=== PATIENT | male | born 1975 | race Caucasian/White ===

== ENCOUNTER 2016-05-01 10:56 | Emergency (ER) | payer MEDICAID ==
[~2016-05-01] VITALS: Ht 188 cm; Wt 103.5 kg
[~2016-05-01 10:56] MED LIST: BACL10TA PO; CIPR500T78 PO; CLOT15CR4 TP; CYCL10TA9 PO; GABA300C PO; GABA300T PO; HYDR-1231 PO; HYDR-3812 PO; HYDR-757 PO; HYDR1TAB PO; IBUP800T26 PO; ONDA8TAB13 PO; OXYC-12 PO; OXYC1TAB25 PO; PHEN100T26 PO; PHEN200T27 PO; PRD20T PO; PRM25T PO; TMSL.4C PO
--- NOTE | 2016-05-01 12:11 | ED EENT ---
History of Present Illness General Chief Complaint: Head/Cervical Problems Stated Complaint: HEADACHE/SORE THROAT Nursing Triage Note: To ER with complaints of headache, ear ache, sore throat and generalized malaise since last night. Source: patient Exam Limitations: no limitations History of Present Illness Time seen by provider: 12:09 Initial Comments To ER with headache, right earache, sore throat, general malaise since last night. He and his report that there has been strep/upper respiratory infection going around the house affecting her children. No fevers. Timing/Duration: abrupt Severity: moderate Location: throat Prearrival Treatment: no prearrival treatment Associated Symptoms: denies symptoms Allergies and Home Medications Allergies Coded Allergies: No Known Drug Allergies (Verified , 07/23/08) Home Medications No Active Prescriptions or Reported Meds Review of Systems Constitutional: see HPINo chills, No fever, malaise weakness Eyes: No Symptoms Reported Ears: No Symptoms Reported Nose: no symptoms reported Mouth: no symptoms reported Throat: see HPI paindenies neck stiffness Respiratory: no symptoms reported Cardiovascular: no symptoms reported Musculoskeletal: no symptoms reported Skin: no symptoms reported Neurological: No Symptoms Reported Past Fkmvkef-Ctulws-Lmftmw Hx Patient Social History Alcohol Use: Denies Use Recreational Drug Use: No (6YEARS AGO METH) Drug of Choice: MARIJUANA Smoking Status: Never a Smoker Recent Foreign Travel: No Contact w/Someone Who Travel: No Recent Infectious Disease Expo: No Recent Hopitalizations: No Physical Abuse Screen: No Sexual Abuse: No Immunizations Up To Date Tetanus Booster (TDap): More than 5yrs Surgeries HX Surgeries: Yes (KIDNEY) Surgeries: Appendectomy, Gallbladder, Orthopedic Respiratory Hx Respiratory Disorders: No Cardiovascular Hx Cardiac Disorders: No Neurological Hx Neurological Disorders: No Reproductive System Hx Reproductive Disorders: No Sexually Transmitted Disease: No HIV/AIDS: No Genitourinary Hx Genitourinary Disorders: Yes Genitourinary Disorders: Kidney Stones Gastrointestinal Hx Gastrointestinal Disorders: Yes Gastrointestinal Disorders: Gastroesophageal Reflux, Ulcer Musculoskeletal Hx Musculoskeletal Disorders: Yes (TORN MENISCUS) Musculoskeletal Disorders: Back Injury Endocrine Hx Endocrine Disorders: No HEENT HX ENT Disorders: No Cancer Hx Cancer: No Psychosocial Hx Psychiatric Problems: No Integumentary HX Skin/Integumentary Disorder: No Blood Transfusions Hx Blood Disorders: No Family Medical History Significant Family History: Heart Disease, Diabetes Family Medial History: Family history: Arthritis G8 SISTER (SEVERE BACK PAIN) Family history: Cardiovascular disease 19 FATHER (PACEMAKER; FROM CARDIAC ISSUES) Family history: Diabetes mellitus 19 FATHER 19 MOTHER G8 BROTHER G8 SISTER Physical Exam Vital Signs Vital Sign - Last 12Hours 05/01/16 12:03 Temp 98.5 Pulse 81 Resp 18 B/P 126/87 Pulse Ox 96 O2 Delivery Room Air General Appearance: WD/WN no apparent distress Eyes: bilateral eye EOMI, bilateral eye PERRL, bilateral eye normal inspection Ears: right ear TM red, left ear TM normal, bilateral ear auricle normal, bilateral ear canal normal Mouth/Throat: other (pharyngeal erythema without hot potato voice or peritonsillar swelling or uvular deviation) Neck: non-tender full range of motion Respiratory: normal breath sounds no respiratory distress no accessory muscle use Neurologic/Psychiatric: alert normal mood/affect oriented x 3 Skin: normal color warm/dry Progress/Results/Core Measures Results/Orders My Orders Orders-ARTHUR HILL APRN Ketorolac Injection (Toradol Injection) (05/01/16 12:15) Orphenadrine Injection (Norflex Injectio (05/01/16 12:15) Vital Signs/I&O Vital Sign - Last 12Hours 05/01/16 12:03 Temp 98.5 Pulse 81 Resp 18 B/P 126/87 Pulse Ox 96 O2 Delivery Room Air Blood Pressure Mean: 100 Departure Impression Impression: Primary Impression: Pharyngitis Qualified Code: J02.9 - Acute pharyngitis, unspecified Disposition: 01 HOME, SELF-CARE Condition: Stable Departure-Patient Inst. Decision time for Depature: 12:10 Referrals: CHRIS ORELLANA MD (PCP/Family) Primary Care Physician Patient Instructions: Sore Throat in Adults Add. Discharge Instructions: 1. antibiotics as directed 2. Follow-up with your doctor next week 3. Use zqyi-uwq-sruvvoe Robitussin or DayQuil/NyQuil for cough congestion All discharge instructions reviewed with patient and/or family. Voiced understanding. Scripts Amoxicillin 500 Mg [id number] Mg PO TID #21 CAP Prov:ARTHUR HILL APRN 05/01/16 ARTHUR HILL APRN May 01, 2016 12:10
[2016-05-01] MEDS ORDERED: AMOX500C2 PO (12:12)
[2016-05-01] MEDS ORDERED: KETOROLAC 60 MG/2 ML VIAL IM ONE (12:15)
[2016-05-01] MEDS ORDERED: ORPHENADRINE 60 MG/2 ML (NORFLEX) AMP IM ONE (12:15)
[2016-05-01 12:25] VITALS: BP 126/87
== END 2016-05-01 12:25 | disposition home or self-care (01) ==
LOC: EDUNIT# 10:56 → ER 10:57
DX: J02.9 Acute pharyngitis, unspecified (principal); R51 Headache
CPT/HCPCS: 96372; 99282

== ENCOUNTER 2016-06-03 06:42 | Outpatient (CLI) | payer MEDICAID ==
[~2016-06-03] VITALS: Ht 188 cm; Wt 103.5 kg
[~2016-06-03 06:42] MED LIST changes: +AMOX500C2 PO
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
[2016-06-03] MEDS ORDERED: BUPIVACAINE 0.25% 30 ML (SENSORCAINE) VIAL ONE (06:55)
[2016-06-03] MEDS ORDERED: TRIAMCINOLONE ACET (KENALOG-40) 40 MG/ML 1 ML VIAL ONE (06:55)
[2016-06-03] MEDS ORDERED: LIDOCAINE 1% INJ 20 ML (XYLOCAINE) VIAL ONE (06:56)
[2016-06-03 06:59] VITALS: BP 114/88
[2016-06-03] MEDS ORDERED: DEXAMETHASONE PF 10 MG/ML (DECADRON) VIAL ONE (07:27)
[2016-06-03 07:39] VITALS: BP 101/86
--- NOTE | 2016-06-03 09:20 | Pain Medicine-Procedure ---
Procedure Pre-Op/Post-Op Diagnosis Diagnosis: Disc disorder with radiculopathy, lumbar Indications for Operation Low back pain Attending Surgeon Alina Procedure Date of Service: Jun 03, 2016 PROCEDURE: Transforaminal epidural Left L4 and L5 level Under fluoroscopic guidance DETAILS OF PROCEDURE: After obtaining informed consent from the patient, the patient's chart was reviewed. The patient was brought to the procedure room and was placed in a prone position. A time out was performed. The back was prepped with antiseptic solution. Under fluoroscopic guidance, the left L4 and L5 neural foramen was identified in the oblique view. 2 mL of 1% Lidocaine was used to anesthetize the skin over each site. Next, a 22-gauge 5-inch spinal needle was inserted through the skin under fluoroscopic guidance until it got to the left L4 and L5 neural foramina and position was confirmed in the oblique, AP and lateral view. After negative aspiration, 1 Rosas contrast dye was injected at each site which showed contrast spreading into the nerve root and the epidural space in both the lateral and AP view at both L4 and L5 on the left side. Again after negative aspiration, 5 mg of dexamethasone was injected followed by 0.5 mLs of 0.25% Marcaine at each site. The washout of the medication was confirmed with good spread of the medication into the epidural space at the appropriate level and into the nerve root. The needle was flushed with 1% lidocaine and removed. The patient tolerated the procedure well and was taken to the recovery area after applying a bandaid to the site. Patient was discharged to home in stable condition with no new neurologic deficits. Complications None CUONG FROST MD Jun 03, 2016 9:20 am
== END 2016-06-03 07:40 | disposition home or self-care (01) ==
LOC: CARD 06:42
PROVIDERS: ATTEND Pain Medicine Pain Medicine
DX: M51.16 Intervertebral disc disorders with radiculopathy, lumbar region (principal); M51.36 Other intervertebral disc degeneration, lumbar region
CPT/HCPCS: 64483; 64484

== ENCOUNTER 2016-07-19 12:36 | Emergency (ER) | payer MEDICAID ==
[~2016-07-19] VITALS: Ht 188 cm; Wt 103.5 kg
[2016-07-19] MEDS ORDERED: fentaNYL INJECTION 100 MCG/2 ML AMP IVP STA (13:05)
[2016-07-19] MEDS ORDERED: KETOROLAC 30 MG/ML VIAL IVP STA (13:05)
[2016-07-19] MEDS ORDERED: NS IV 1000 ML 1,000 ML IV ONE (13:05)
--- NOTE | 2016-07-19 13:14 | ED GU-Male ---
General Chief Complaint: Abdominal/GI Problems Stated Complaint: LEFT FLANK PAIN Source: patient Exam Limitations: no limitations History of Present Illness Time seen by provider: 13:02 Initial Comments Here with report of left flank pain that has moved down to the left lower quadrant. States that it feels like kidney stone. Denies fever or chills. Pain is unrelenting. Started yesterday and worse today. Timing/Duration: yesterday, getting worse Severity/Quality: moderate, aching, sharp Location: left flank Radiation: LLQ Activities at Onset: none Prior Genitourinary Problems: similar symptoms (kidney stone) Associated Symptoms: No dysuria, No nausea/vomiting, No urinary frequency Allergies and Home Medications Allergies Coded Allergies: No Known Drug Allergies (Verified , 07/23/08) Home Medications No Active Prescriptions or Reported Meds Constitutional: see HPI, No chills, No fever EENTM: no symptoms reported Respiratory: no symptoms reported Cardiovascular: no symptoms reported Gastrointestinal: see HPI, abdominal pain, No nausea, No vomiting Genitourinary: see HPI, flank pain, pain Musculoskeletal: back pain, No muscle pain Skin: no symptoms reported All Other Systemes Reviewed Negative Unless Noted: Yes Past Vwawazf-Lblybs-Wgfnjd Hx Patient Social History Alcohol Use: Denies Use Recreational Drug Use: Yes Drug of Choice: MARIJUANA Smoking Status: Never a Smoker Recent Foreign Travel: No Contact w/Someone Who Travel: No Recent Hopitalizations: No Immunizations Up To Date Tetanus Booster (TDap): More than 5yrs Surgeries HX Surgeries: Yes (KIDNEY) Surgeries: Appendectomy, Gallbladder, Orthopedic Respiratory Hx Respiratory Disorders: No Cardiovascular Hx Cardiac Disorders: No Neurological Hx Neurological Disorders: No Reproductive System Hx Reproductive Disorders: No Sexually Transmitted Disease: No HIV/AIDS: No Genitourinary Hx Genitourinary Disorders: Yes Genitourinary Disorders: Kidney Stones Gastrointestinal Hx Gastrointestinal Disorders: Yes Gastrointestinal Disorders: Gastroesophageal Reflux, Ulcer Musculoskeletal Hx Musculoskeletal Disorders: Yes (TORN MENISCUS) Musculoskeletal Disorders: Back Injury Endocrine Hx Endocrine Disorders: No HEENT HX ENT Disorders: No Cancer Hx Cancer: No Psychosocial Hx Psychiatric Problems: No Integumentary HX Skin/Integumentary Disorder: No Blood Transfusions Hx Blood Disorders: No Reviewed Nursing Assessment Reviewed/Agree w Nursing PMH: Yes Family Medical History Significant Family History: Heart Disease, Diabetes Family Medial History: Family history: Arthritis G8 SISTER (SEVERE BACK PAIN) Family history: Cardiovascular disease 19 FATHER (PACEMAKER; FROM CARDIAC ISSUES) Family history: Diabetes mellitus 19 FATHER 19 MOTHER G8 BROTHER G8 SISTER Physical Exam Vital Signs Vital Sign - Last 12Hours 07/19/16 12:50 Temp 97.8 Pulse 95 Resp 18 B/P (MAP) 130/88 Capillary Refill : General Appearance: WD/WN, mild distress (flank pain) HEENT: PERRL/EOMI, pharynx normal Neck: full range of motion, supple Cardiovascular: regular rate, rhythm, no murmur Respiratory: lungs clear, normal breath sounds Gastrointestinal: non tender, soft Back: normal inspection, no CVA tenderness, no vertebral tenderness Extremities: normal range of motion, non-tender, normal inspection Neurologic/Psychiatric: alert, oriented x 3 Skin: normal color, warm/dry Progress/Results/Core Measures Results/Orders Lab Results Laboratory Tests Test 07/19/16 13:10 07/19/16 14:07 Range/Units White Blood Count 6.9 4.3-11.0 10^3/uL Red Blood Count 5.00 4.35-5.85 10^6/uL Hemoglobin 15.1 13.3-17.7 G/DL Hematocrit 43 40-54 % Mean Corpuscular Volume 87 80-99 FL Mean Corpuscular Hemoglobin 30 25-34 PG Mean Corpuscular Hemoglobin Concent 35 32-36 G/DL Red Cell Distribution Width 12.9 10.0-14.5 % Platelet Count 181 130-400 10^3/uL Mean Platelet Volume 12.2 H 7.4-10.4 FL Neutrophils (%) (Auto) 48 42-75 % Lymphocytes (%) (Auto) 38 12-44 % Monocytes (%) (Auto) 8 0-12 % Eosinophils (%) (Auto) 4 0-10 % Basophils (%) (Auto) 2 0-10 % Neutrophils # (Auto) 3.4 1.8-7.8 X 10^3 Lymphocytes # (Auto) 2.6 1.0-4.0 X 10^3 Monocytes # (Auto) 0.6 0.0-1.0 X 10^3 Eosinophils # (Auto) 0.3 0.0-0.3 10^3/uL Basophils # (Auto) 0.1 0.0-0.1 10^3/uL Sodium Level 138 135-145 MMOL/L Potassium Level 4.0 3.6-5.0 MMOL/L Chloride Level 106 98-107 MMOL/L Carbon Dioxide Level 24 21-32 MMOL/L Anion Gap 8 5-14 MMOL/L Blood Urea Nitrogen 14 7-18 MG/DL Creatinine 1.06 0.60-1.30 MG/DL Estimat Glomerular Filtration Rate > 60 BUN/Creatinine Ratio 13 Glucose Level 83 70-105 MG/DL Calcium Level 8.9 8.5-10.1 MG/DL Urine Color YELLOW Urine Clarity CLEAR Urine pH 6 5-9 Urine Specific [place] 1.025 H 1.016-1.022 Urine Protein NEGATIVE NEGATIVE Urine Glucose (UA) NEGATIVE NEGATIVE Urine Ketones NEGATIVE NEGATIVE Urine Nitrite NEGATIVE NEGATIVE Urine Bilirubin NEGATIVE NEGATIVE Urine Urobilinogen NORMAL NORMAL MG/DL Urine Leukocyte Esterase NEGATIVE NEGATIVE Urine RBC (Auto) NEGATIVE NEGATIVE Urine RBC NONE /HPF Urine WBC NONE /HPF Urine Squamous Epithelial Cells RARE /HPF Urine Crystals NONE /LPF Urine Bacteria NEGATIVE /HPF Urine Casts NONE /LPF Urine Mucus NEGATIVE /LPF Urine Culture Indicated NO My Orders Orders - ARCHIE RICE MD Fentanyl Injection (Sublimaze Injection (07/19/16 13:05) Ketorolac Injection (Toradol Injection) (07/19/16 13:05) Saline Lock/Iv-Start (07/19/16 13:05) Ns Iv 1000 Ml (Sodium Chloride 0.9%) (07/19/16 13:05) Ct Abd/Pelvis Wo(Kidney Stone) (07/19/16 13:05) Medications Given in ED Current Medications Medications Dose Ordered Sig/Krissy Route Start Time Stop Time Status Last Admin Dose Admin Sodium Chloride 1,000 ml @ 0 mls/hr Q0M ONCE IV 07/19/16 13:05 07/19/16 13:07 DC 07/19/16 13:21 1,000 MLS/HR Vital Signs/I&O Vital Sign - Last 12Hours 07/19/16 12:50 Temp 97.8 Pulse 95 Resp 18 B/P (MAP) 130/88 Progress Note : Progress Note Seen and evaluated. IV, labs and UA ordered. CT abdomen and pelvis kidney stone protocol ordered. Fentanyl 50 g IV and Toradol 30 mg IV ordered. Normal saline 1 L bolus. Monitor patient. 1455: Pain somewhat improved. CT scan and other laboratory studies do not show any significant findings. Discharged home with return precautions. Patient family verbalize understanding instructions and agreement with plan. Diagnostic Imaging Diagonstic Imaging: CT Plain Films/CT/US/NM/MRI: abdomen, pelvis Comments NAME: NEYDA SAUNDERS [facility] REC#: [id number] PT STATUS: REG ER : 1975 PHYSICIAN: ARCHIE RICE MD ADMIT DATE: 07/19/16/ER Signed Date of Exam: 07/19/16 CT ABD/PELVIS WO(KIDNEY STONE) PROCEDURE: CT urinary tract, rule out kidney stone. TECHNIQUE: Multiple contiguous axial images were obtained through the abdomen and pelvis without the use of intravenous contrast. INDICATION: Abdominal pain, history of kidney stones. COMPARISON STUDY: CT scan from 04/10/2014. FINDINGS: The lung bases are clear. The liver, gallbladder, spleen, pancreas, adrenal glands and kidneys appear unremarkable. There is a punctate calculi in the left kidney. No inflammation or hydronephrosis is present. The ureters are clear. Urinary bladder is normal. No ascites, free air or abnormal adenopathy is present. The bowel loops are normal. The appendix is absent. The osseous structures have a normal appearance. IMPRESSION: There is a punctate calculi in the left kidney with no inflammation. No hydronephrosis is seen. Dictated by: Dictated on workstation # [id number] Dict: 07/19/16 1341 Trans: 07/19/16 1421 [facility] [id number] Interpreted by: DENISE PULIDO MD Electronically signed by:DENISE PULIDO MD 07/19/16 1421 Departure Impression Impression: Primary Impression: Left flank pain Disposition: 01 HOME, SELF-CARE Condition: Improved Departure-Patient Inst. Decision time for Depature: 15:00 Referrals: CHRIS ORELLANA MD (PCP/Family) Primary Care Physician Patient Instructions: Acute Abdomen (Belly Pain), Adult (DC), Renal Colic (DC) Add. Discharge Instructions: All discharge instructions reviewed with patient and/or family. Voiced understanding. Take medications as directed. Drink plenty of fluids. Follow-up with your doctor in 2-3 days. Return for worse pain, fever, vomiting, weakness, rhythm problems or other concerns as needed. Scripts Naproxen (Naprosyn) 500 Mg Tablet 500 MG PO BID, #30 TAB 0 Refills Prov: ARCHIE RICE MD 07/19/16 ARCHIE RICE MD Jul 19, 2016 13:14
[2016-07-19 13:20] LABS: BASOPHILS # (AUTO) 0.1 10^3/uL (0.0-0.1); BASOPHILS % (AUTO) 2 % (0-10); EOSINOPHILS # (AUTO) 0.3 10^3/uL (0.0-0.3); EOSINOPHILS % (AUTO) 4 % (0-10); LYMPHOCYTES # (AUTO) 2.6 X 10^3 (1.0-4.0); LYMPHOCYTES % (AUTO) 38 % (12-44); MEAN CORPUSCULAR HEMOGLOBIN 30 PG (25-34); MEAN CORPUSCULAR HGB CONC 35 G/DL (32-36); MEAN CORPUSCULAR VOLUME 87 FL (80-99); MEAN PLATELET VOLUME 12.2 FL (7.4-10.4); MONOCYTES # (AUTO) 0.6 X 10^3 (0.0-1.0); MONOCYTES % (AUTO) 8 % (0-12); NEUTROPHILS # (AUTO) 3.4 X 10^3 (1.8-7.8); NEUTROPHILS % (AUTO) 48 % (42-75); PLATELET COUNT 181 10^3/uL (130-400); RED CELL DISTRIBUTION WIDTH 12.9 % (10.0-14.5); WHITE BLOOD COUNT 6.9 10^3/uL (4.3-11.0)
[2016-07-19 13:40] LABS: ANION GAP 8 MMOL/L (5-14); BLOOD UREA NITROGEN 14 MG/DL (7-18); BUN/CREATININE RATIO 13; CALCIUM 8.9 MG/DL (8.5-10.1); CARBON DIOXIDE 24 MMOL/L (21-32); CHLORIDE 106 MMOL/L (98-107); CREATININE SERUM 1.06 MG/DL (0.60-1.30); GFR ESTIMATED > 60; GLUCOSE 83 MG/DL (70-105); SODIUM 138 MMOL/L (135-145)
--- NOTE | 2016-07-19 14:02 | Diagnostic Imaging Report ---
PROCEDURE: CT urinary tract, rule out kidney stone. TECHNIQUE: Multiple contiguous axial images were obtained through the abdomen and pelvis without the use of intravenous contrast. INDICATION: Abdominal pain, history of kidney stones. COMPARISON STUDY: CT scan from 04/10/2014. FINDINGS: The lung bases are clear. The liver, gallbladder, spleen, pancreas, adrenal glands and kidneys appear unremarkable. There is a punctate calculi in the left kidney. No inflammation or hydronephrosis is present. The ureters are clear. Urinary bladder is normal. No ascites, free air or abnormal adenopathy is present. The bowel loops are normal. The appendix is absent. The osseous structures have a normal appearance. IMPRESSION: There is a punctate calculi in the left kidney with no inflammation. No hydronephrosis is seen. Dictated by: Dictated on workstation # [id number]
[2016-07-19 14:13] LABS: BILIRUBIN,URINE NEGATIVE (NEGATIVE); KETONES,URINE NEGATIVE (NEGATIVE); LEUKOCYTE ESTERASE ,URINE NEGATIVE (NEGATIVE); NITRITE,URINE NEGATIVE (NEGATIVE); PH,URINE 6 (5-9); PROTEIN,URINE NEGATIVE (NEGATIVE); UROBILINOGEN,URINE NORMAL (NORMAL)
[2016-07-19 14:28] LABS: SQUAMOUS EPITHELIAL CELL,UR RARE /HPF
[2016-07-19] MEDS ORDERED: NAPR500T PO (15:03)
[2016-07-19 15:08] VITALS: BP 124/85
--- OUTSIDE RECORDS SUMMARY | 2016-08-21 14:26 | XMS REPORT | Continuity of Care Document ---
Author Author [facility] Address Unknown Phone Unavailable Allergies Active Description Code Type Severity Reaction Onset Reported/Identified Relationship to Patient Clinical Status Yes No Known Drug Allergies [id number] Drug Allergy Unknown N/ A 07/23/2008 Medications [...] 604.90 ORCHITIS AND EPIDIDYMITIS UNSPECIFIED 11/23/2010 ANGELA VACUUM DRIER OPERATOR, BLAYNE R 257.9 UNSPECIFIED TESTICULAR DYSFUNCTION 11/23/2010 ANGELA VACUUM DRIER OPERATOR, BLAYNE R 604.90 ORCHITIS AND EPIDIDYMITIS UNSPECIFIED 11/23/2010 ANGELA VACUUM DRIER OPERATOR, BLAYNE R 257.9 UNSPECIFIED TESTICULAR DYSFUNCTION 11/23/2010 ANGELA VACUUM DRIER OPERATOR, BLAYNE R 604.90 ORCHITIS AND EPIDIDYMITIS UNSPECIFIED 11/23/2010 LLOYD VACUUM DRIER OPERATOR, CHAYA S 257.9 UNSPECIFIED TESTICULAR DYSFUNCTION 11/23/2010 LLOYD VACUUM DRIER OPERATOR, CHAYA S 604.90 ORCHITIS AND EPIDIDYMITIS UNSPECIFIED 11/23/2010 KIRILL LUNDY MD 257.9 UNSPECIFIED TESTICULAR DYSFUNCTION 11/23/2010 KIRILL LUNDY MD 604.90 ORCHITIS AND EPIDIDYMITIS UNSPECIFIED 08/30/2011 477.9 RHINITIS 08/30/2011 786.52 CHEST WALL PAIN 08/30/2011 477.9 RHINITIS 08/30/2011 786.52 CHEST WALL PAIN 08/30/2011 ANGELA VACUUM DRIER OPERATOR, BLAYNE R 477.9 RHINITIS 08/30/2011 ANGELA VACUUM DRIER OPERATOR, BLAYNE R 786.52 CHEST WALL PAIN 08/30/2011 ANGELA VACUUM DRIER OPERATOR, BLAYNE R 477.9 RHINITIS 08/30/2011 ANGELA VACUUM DRIER OPERATOR, BLAYNE R 786.52 CHEST WALL PAIN 08/30/2011 LLOYD REYES, CHAYA S 477.9 RHINITIS 08/30/2011 LLOYD REYES, CHAYA S 786.52 CHEST WALL PAIN 08/30/2011 KIRILL LUNDY MD 477.9 RHINITIS 08/30/2011 KIRILL LUNDY MD 786.52 CHEST WALL PAIN 05/23/2012 461.9 SINUSITIS ACUTE 05/23/2012 786.50 CHEST PAIN 05/23/2012 461.9 SINUSITIS ACUTE 05/23/2012 786.50 CHEST PAIN 05/23/2012 ANGELA VACUUM DRIER OPERATOR, BLAYNE R 461.9 SINUSITIS ACUTE 05/23/2012 ANGELA VACUUM DRIER OPERATOR, BLAYNE R 786.50 CHEST PAIN 05/23/2012 ANGELA VACUUM DRIER OPERATOR, BLAYNE R 461.9 SINUSITIS ACUTE 05/23/2012 ANGELA VACUUM DRIER OPERATOR, BLAYNE R 786.50 CHEST PAIN 05/23/2012 LLOYD REYES, CHAYA S 461.9 SINUSITIS ACUTE 05/23/2012 LLOYD REYES, CHAYA S 786.50 CHEST PAIN 05/23/2012 KIRILL LUNDY MD 461.9 SINUSITIS ACUTE 05/23/2012 KIRILL LUNDY MD 786.50 CHEST PAIN 07/31/2012 786.2 cough 07/31/2012 789.09 groin (inguinal) pain left side 07/31/2012 ANGELA RYEES, BLAYNE R 786.2 cough 07/31/2012 ANGELA REYES, [...] (INGUINAL) PAIN LEFT SIDE 04/18/2013 ARTHUR HILL VACUUM DRIER OPERATOR Ot 724.2 LUMBAGO 04/18/2013 ARTHUR HILL VACUUM DRIER OPERATOR Ot 724.4 LUMBOSACRAL NEURITIS NOS 04/25/2013 ANGELA [...] MILLER APRN Ot 724.2 04/14/2014 BLAYNE MILLER VACUUM DRIER OPERATOR Ot 729.5 04/14/2014 CHRIS ORELLANA MD Ot 722.10 04/14/2014 CHRIS ORELLANA MD Ot 722.52 04/21/2014 Ot 530.81 04/21/2014 Ot 787.3 04/21/2014 Ot 789.06 04/21/2014 QUANG CONTRERAS Ot 592.1 04/21/2014 BLAYNE MILLER VACUUM DRIER OPERATOR Ot 724.2 04/21/2014 BLAYNE MILLER VACUUM DRIER OPERATOR Ot 729.5 04/21/2014 CHRIS ORELLANA MD Ot [...] 592.1 CALCULUS OF URETER 09/30/2015 BLAYNE MILLER VACUUM DRIER OPERATOR Ot 724.2 LUMBAGO 09/30/2015 BLAYNE MILLER VACUUM DRIER OPERATOR Ot 729.5 PAIN IN LIMB 09/30/2015 CHRIS [...] V72.84 EXAM PRE-OPERATIVE NOS 09/30/2015 ARTHUR HILL VACUUM DRIER OPERATOR Ot L23.7 ALLERGIC CONTACT DERMATITIS DUE TO PLANT 10/07/2015 ARTHUR HILL VACUUM DRIER OPERATOR Ot L23.7 ALLERGIC CONTACT DERMATITIS DUE TO PLANT 12/17/2015 QUANG CONTRERAS Ot 592.1 CALCULUS OF URETER 12/17/2015 BLAYNE MILLER VACUUM DRIER OPERATOR Ot 724.2 LUMBAGO 12/17/2015 BLAYNE MILLER VACUUM DRIER OPERATOR Ot 729.5 PAIN IN LIMB 12/17/2015 CHRIS [...] QUANG CONTRERAS Ot B35.6 TINEA CRURIS 12/20/2015 QAUNG CONTRERAS Ot R21 RASH AND OTHER NONSPECIFIC SKIN ERUPTION 01/12/2016 LOLLY HARO Ot I86.1 SCROTAL VARICES 01/12/2016 LOLLY HARO FLOOR COVERER Ot N43.3 HYDROCELE, UNSPECIFIED 05/01/2016 ARTHUR HILL VACUUM DRIER OPERATOR Ot J02.9 ACUTE PHARYNGITIS, UNSPECIFIED 05/01/2016 ARTHUR HILL VACUUM DRIER OPERATOR Ot R51 HEADACHE 05/01/2016 QUANG CONTRERAS Ot 592.1 CALCULUS OF URETER 05/01/2016 BLAYNE MILLER R VACUUM DRIER OPERATOR Ot 724.2 LUMBAGO 05/01/2016 BLAYNE MILLER R VACUUM DRIER OPERATOR Ot 729.5 PAIN IN LIMB 05/01/2016 REYNA [...] NOS 05/01/2016 CUONG FROST MD Ot V58.69 OT MED,LT,CURRENT USE 05/01/2016 REHANA SULLIVAN MD Ot V72.84 EXAM PRE-OPERATIVE NOS 05/01/2016 LOLLY HARO FLOOR COVERER Ot I86.1 SCROTAL VARICES 05/01/2016 LOLLY HARO FLOOR COVERER Ot N43.3 HYDROCELE, UNSPECIFIED 05/03/2016 ARTHUR HLIL VACUUM DRIER OPERATOR Ot J02.9 ACUTE PHARYNGITIS, UNSPECIFIED 05/03/2016 ARTHUR HILL VACUUM DRIER OPERATOR Ot R51 HEADACHE 06/03/2016 CUONG FROST MD Ot M51.16 INTERVERTEBRAL DISC DISORDERS W RADICULO 06/03/2016 CUONG FROST MD, Ot M51.36 OTHER INTERVERTEBRAL DISC DEGENERATION, 06/13/2016 CUONG FROST MD, Ot M51.16 INTERVERTEBRAL DISC DISORDERS W RADICULO 06/13/2016 CUONG FROST MD, Ot M51.36 OTHER INTERVERTEBRAL DISC DEGENERATION, 07/19/2016 QUANG CONTRERAS Ot 592.1 CALCULUS OF URETER 07/19/2016 BLAYNE MILLER VACUUM DRIER OPERATOR Ot 724.2 LUMBAGO 07/19/2016 BLAYNE MILLER VACUUM DRIER OPERATOR Ot 729.5 PAIN IN LIMB 07/19/2016 CHRIS ORELLANA MD Ot 722.10 LUMBAR DISC DISPLACEMENT 07/19/2016 CHRIS ORELLANA MD Ot 722.52 LUMB/LUMBOSAC DISC DEGEN 07/19/2016 CUONG FROST MD Ot 722.52 LUMB/LUMBOSAC DISC DEGEN 07/19/2016 CUONG FROST MD Ot V64.3 NO PROC FOR REASONS NEC 07/19/2016 CUONG FROST MD Ot 721.3 LUMBOSACRAL SPONDYLOSIS 07/19/2016 CUONG FROST MD Ot 722.52 LUMB/LUMBOSAC DISC DEGEN 07/19/2016 CUONG FROST MD Ot 729.1 MYALGIA AND MYOSITIS NOS 07/19/2016 CUONG FROST MD Ot V58.69 OT MED,LT,CURRENT USE 07/19/2016 REHANA SULLIVAN MD Ot V72.84 EXAM PRE-OPERATIVE NOS 07/19/2016 LOLLY HARO Ot I86.1 SCROTAL VARICES 07/19/2016 LOLLY HARO Ot N43.3 HYDROCELE, UNSPECIFIED 07/19/2016 ARCHIE RICE MD Ot N20.0 CALCULUS OF KIDNEY 07/19/2016 ARCHIE RICE MD Ot R10.32 LEFT LOWER QUADRANT PAIN Procedures Code Description [place] [address] EKG, TRACING (IN-HOUSE) 05/23/2012 94648 MRI SPINE (LUMBAR) W/O CONTRAST 05/01/2013 44670 US VENOUS DOPPLER (DVT EVAL) 08/27/2013 Results Test Result Range Complete blood count (CBC) with automated white blood cell (WBC) differential - 07/19/16 13:10 Blood leukocytes automated count (number/volume) 6.9 10*3/ uL 4.3-11.0 Blood erythrocytes automated count (number/volume) 5.00 10*6 /uL 4.35-5.85 Venous blood hemoglobin measurement (mass/volume) 15.1 g/dL 13.3-17.7 Blood hematocrit (volume fraction) 43 % 40-54 Automated erythrocyte mean corpuscular volume 87 [foz_us] 80-99 Automated erythrocyte mean corpuscular hemoglobin (mass per erythrocyte) 30 pg 25-34 Automated erythrocyte mean corpuscular hemoglobin concentration measurement ( mass/volume) 35 g/dL 32-36 Automated erythrocyte distribution width ratio 12.9 % 10.0-14.5 Automated blood platelet count (count/volume) 181 10*3/uL 130-400 Automated blood platelet mean volume measurement 12.2 [foz_ us] 7.4-10.4 Automated blood neutrophils/100 leukocytes 48 % 42-75 Automated blood lymphocytes/100 leukocytes 38 % 12-44 Blood monocytes/100 leukocytes 8 % 0-12 Automated blood eosinophils/100 leukocytes 4 % 0-10 Automated blood basophils/100 leukocytes 2 % 0-10 Blood neutrophils automated count (number/volume) 3.4 10*3 1.8-7.8 Blood lymphocytes automated count (number/volume) 2.6 10*3 1.0-4.0 Blood monocytes automated count (number/volume) 0.6 10*3 0.0-1.0 Automated eosinophil count 0.3 10*3/uL 0.0-0.3 Automated blood basophil count (count/volume) 0.1 10*3/uL 0.0-0.1 Whole blood basic metabolic panel - 07/19/16 13:10 Serum or plasma sodium measurement (moles/volume) 138 mmol/ L 135-145 Serum or plasma potassium measurement (moles/volume) 4.0 mmol/L 3.6-5.0 Serum or plasma chloride measurement (moles/volume) 106 mmol /L 98-107 Carbon dioxide 24 mmol/L 21-32 Serum or plasma anion gap determination (moles/volume) 8 mmol/L 5-14 Serum or plasma urea nitrogen measurement (mass/volume) 14 mg/dL 7-18 Serum or plasma creatinine measurement (mass/volume) 1.06 mg /dL 0.60-1.30 Serum or plasma urea nitrogen/creatinine mass ratio 13 NRG Serum or plasma creatinine measurement with calculation of estimated glomerular filtration rate > NRG Serum or plasma glucose measurement (mass/volume) 83 mg/dL 70-105 Serum or plasma calcium measurement (mass/volume) 8.9 mg/dL 8.5-10.1 Complete urinalysis with reflex to culture - 07/19/16 14:07 Urine color determination YELLOW NRG Urine clarity determination CLEAR NRG Urine pH measurement by test strip 6 5- 9 Specific gravity of urine by test strip 1.025 1.016-1.022 Urine protein assay by test strip, semi-quantitative NEGATIVE NEGATIVE Urine glucose detection by automated test strip NEGATIVE NEGATIVE Erythrocytes detection in urine sediment by light microscopy NEGATIVE NEGATIVE Urine ketones detection by automated test strip NEGATIVE NEGATIVE Urine nitrite detection by test strip NEGATIVE NEGATIVE Urine total bilirubin detection by test strip NEGATIVE NEGATIVE Urine urobilinogen measurement by automated test strip (mass/volume) NORMAL NORMAL Urine leukocyte esterase detection by dipstick NEGATIVE NEGATIVE Automated urine sediment erythrocyte count by microscopy (number/high power field) NONE NRG Automated urine sediment leukocyte count by microscopy (number/high power field ) NONE NRG Bacteria detection in urine sediment by light microscopy NEGATIVE NRG Squamous epithelial cells detection in urine sediment by light microscopy RARE NRG Crystals detection in urine sediment by light microscopy NONE NRG Casts detection in urine sediment by light microscopy NONE NRG Mucus detection in urine sediment by light microscopy NEGATIVE NRG Complete urinalysis with reflex to culture NO NRG Encounters ACCT No. Visit Date/Time Discharge Status Pt. Type Provider Facility Loc./Unit Complaint [id number] 10/24/2013 00:48:00 10/24/2013 23: 59:59 CLS Outpatient KIRILL LUNDY MD [id number] 09/04/2013 13:55:00 09/04/2013 23: 59:59 CLS Outpatient CHAYA DESAI APRN [id number] 08/27/2013 17:26:00 08/27/2013 23: 59:59 CLS Outpatient BLAYNE MILLER APRN [id number] 04/25/2013 08:59:00 04/25/2013 23: 59:59 CLS Outpatient BLAYNE MILLER APRN [id number] 05/23/2012 15:25:00 05/23/2012 23: 59:59 CLS Outpatient [id number] 07/31/2012 14:36:00 Document Registration
== END 2016-07-19 15:11 | disposition home or self-care (01) ==
LOC: EDUNIT# 12:36 → ER 12:38
DX: N20.0 Calculus of kidney (principal)
CPT/HCPCS: 36415; 74176; 80048; 81000; 85025; 96361; 96374; 96375

== ENCOUNTER 2016-09-21 07:14 | Emergency (ER) | payer MEDICAID ==
[~2016-09-21] VITALS: Ht 190.5 cm; Wt 104.3 kg
[~2016-09-21 07:14] MED LIST changes: +NAPR500T PO
[2016-09-21] MEDS ORDERED: LIDOCAINE 2% VISCOUS 15 ML UDC PO ONE (07:30)
--- NOTE | 2016-09-21 07:39 | ED General ---
General Chief Complaint: Cough/Cold/Flu Symptoms Stated Complaint: DIFFICULTY SWALLOWING,EARACHE Nursing Triage Note: AMBULATED TO ROOM 07 WITH COMPLAINTS OF TROUBLE SWALLOWING, LEFT SIDED SORE THROAT, COUGH, AND NOT SLEEPING. PT STATS THIS STARTED LAST WEEK. Nursing Sepsis Screen: No Definite Risk Source of Information: Patient Exam Limitations: No Limitations History of Present Illness Time Seen by Provider: 07:20 Initial Comments This 5-year-old gentleman presents to the emergency room with acute URI symptoms worsening over about one week including ear pain, headache, intense sore throat with difficulty swallowing, and productive cough. No GI symptoms. He is afebrile. He has not taken any medications for his symptoms. Allergies and Home Medications Allergies Coded Allergies: No Known Drug Allergies (Verified , 07/23/08) Home Medications No Active Prescriptions or Reported Meds Constitutional: no symptoms reported EENTM: see HPI Respiratory: see HPI Cardiovascular: no symptoms reported Gastrointestinal: no symptoms reported Genitourinary: no symptoms reported Musculoskeletal: no symptoms reported Skin: no symptoms reported Psychiatric/Neurological: No Symptoms Reported Hematologic/Lymphatic: No Symptoms Reported Past Kpwaphp-Omvrqf-Ipnptl Hx Patient Social History Alcohol Use: Denies Use Recreational Drug Use: Yes (POT, 6YEARS AGO METH) Drug of Choice: MARIJUANA 2nd Hand Smoke Exposure: No Recent Foreign Travel: No Contact w/Someone Who Travel: No Recent Infectious Disease Expo: No Recent Hopitalizations: No Immunizations Up To Date Tetanus Booster (TDap): More than 5yrs Surgeries HX Surgeries: Yes (KIDNEY) Surgeries: Appendectomy, Gallbladder, Orthopedic Respiratory Hx Respiratory Disorders: No Cardiovascular Hx Cardiac Disorders: No Neurological Hx Neurological Disorders: No Reproductive System Hx Reproductive Disorders: No Sexually Transmitted Disease: No HIV/AIDS: No Genitourinary Hx Genitourinary Disorders: Yes Genitourinary Disorders: Kidney Stones Gastrointestinal Hx Gastrointestinal Disorders: Yes Gastrointestinal Disorders: Gastroesophageal Reflux, Ulcer Musculoskeletal Hx Musculoskeletal Disorders: Yes (TORN MENISCUS) Musculoskeletal Disorders: Back Injury Endocrine Hx Endocrine Disorders: No HEENT HX ENT Disorders: No Cancer Hx Cancer: No Psychosocial Hx Psychiatric Problems: No Integumentary HX Skin/Integumentary Disorder: No Blood Transfusions Hx Blood Disorders: No Family Medical History Significant Family History: Heart Disease, Diabetes Family Medial History: Family history: Arthritis G8 SISTER (SEVERE BACK PAIN) Family history: Cardiovascular disease 19 FATHER (PACEMAKER; FROM CARDIAC ISSUES) Family history: Diabetes mellitus 19 FATHER 19 MOTHER G8 BROTHER G8 SISTER Physical Exam Vital Signs Vital Sign - Last 12Hours 09/21/16 09/21/16 07:22 07:30 Temp 99.0 Pulse 89 Resp 18 B/P (MAP) 140/104 Pulse Ox 97 O2 Delivery Room Air Capillary Refill : Less Than 3 Seconds General Appearance: WD/WN, Mild Distress HEENT: PERRL/EOMI, TMs Normal, Normal ENT Inspection, Pharyngeal Erythema, Other (mild to moderate pharyngeal erythema and edema) Neck: Normal Inspection, Lymphadenopathy (R) (tender right cervical lymph node) Respiratory: Lungs Clear, Normal Breath Sounds, No Accessory Muscle Use, No Respiratory Distress Cardiovascular: Regular Rate, Rhythm, No Edema Gastrointestinal: Normal Bowel Sounds, Non Tender, Soft Extremity: Normal Inspection Neurologic/Psychiatric: Alert, Oriented x3, No Motor/Sensory Deficits, Normal Mood/Affect, 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 Skin: Normal Color, Warm/Dry Progress/Results/Core Measures Results/Orders Lab Results Laboratory Tests Test 09/21/16 07:28 Range/Units Group A Streptococcus Screen NEGATIVE NEGATIVE My Orders Orders - THA DIEGO MD Rapid Strep A Screen (09/21/16 07:21) Lidocaine 2% Viscous 15 Ml (Xylocaine Vi (09/21/16 07:30) Ketorolac Injection (Toradol Injection) (09/21/16 08:00) Medications Given in ED Current Medications Medications Dose Ordered Sig/Krissy Route Start Time Stop Time Status Last Admin Dose Admin Lidocaine HCl 15 ml ONCE ONCE PO 09/21/16 07:30 09/21/16 07:31 DC 09/21/16 07:34 15 ML Vital Signs/I&O Vital Sign - Last 12Hours 09/21/16 09/21/16 07:22 07:30 Temp 99.0 Pulse 89 Resp 18 B/P (MAP) 140/104 Pulse Ox 97 O2 Delivery Room Air Blood Pressure Mean: 116 Progress Note #1: Time: 07:38 Progress Note Patient was given some viscous lidocaine to gargle and swallow for throat symptoms. Rapid strep test ordered. Progress Note #2: Time: 07:53 Progress Note Rapid strep test was negative. However, because of the patient's severity of symptoms, he would like to pursue antibiotic therapy until the strep culture returns. He was offered and excepts Toradol injection. He prefers to just do oral antibiotics rather than a Rocephin injection. Departure Impression Impression: Primary Impression: Pharyngitis Qualified Codes: J02.9 - Acute pharyngitis, unspecified Additional Impressions: Cervical lymphadenitis Upper respiratory infection Qualified Codes: J06.9 - Acute upper respiratory infection, unspecified Disposition: 01 HOME, SELF-CARE Condition: Improved Departure-Patient Inst. Decision time for Depature: 07:55 Referrals: CHRIS ORELLANA MD (PCP/Family) Primary Care Physician Patient Instructions: Sore Throat in Adults Add. Discharge Instructions: Drink plenty of clear liquids. For pain take ibuprofen up to 800 mg every 8 hours as needed. Add Tylenol ( acetaminophen) up to 1000 mg every 6 hours as needed for additional pain relief. Follow-up with your primary care provider if not improving over the next 48 hours. Return to care if symptoms worsen. Complete your antibiotics as prescribed. Avoid inhaled irritants such as smoke. All discharge instructions reviewed with patient and/or family. Voiced understanding. Scripts Amoxicillin (Amoxicillin) 500 Mg Tablet 1000 MG PO BID, #28 TAB Prov: THA DIEGO MD 09/21/16 THA DIEGO MD Sep 21, 2016 07:39
[2016-09-21] MEDS ORDERED: AMOX500T2 PO (07:57)
[2016-09-21] MEDS ORDERED: KETOROLAC 60 MG/2 ML VIAL IM ONE (08:00)
[2016-09-21 08:01] VITALS: BP 125/92
== END 2016-09-21 08:01 | disposition home or self-care (01) ==
LOC: EDUNIT# 07:14 → ER 07:16
DX: J06.9 Acute upper respiratory infection, unspecified (principal); J02.9 Acute pharyngitis, unspecified; I88.9 Nonspecific lymphadenitis, unspecified
CPT/HCPCS: 87430; 99282

== ENCOUNTER 2017-01-17 18:42 | Emergency (ER) | payer MEDICAID ==
[~2017-01-17] VITALS: Ht 190.5 cm; Wt 104.4 kg
[~2017-01-17 18:42] MED LIST changes: +AMOX500T2 PO
[2017-01-17] MEDS ORDERED: RX-NITROGLYCERIN 0.4 MG TAB BTL 25'S SL PRN (19:00)
[2017-01-17] MEDS ORDERED: ASPIRIN 81 MG CHEW (CHILDREN'S ASA) PO ONE (19:00)
[2017-01-17 19:08] LABS: BASOPHILS # (AUTO) 0.1 10^3/uL (0.0-0.1); BASOPHILS % (AUTO) 2 % (0-10); EOSINOPHILS # (AUTO) 0.3 10^3/uL (0.0-0.3); EOSINOPHILS % (AUTO) 4 % (0-10); LYMPHOCYTES # (AUTO) 3.2 X 10^3 (1.0-4.0); LYMPHOCYTES % (AUTO) 42 % (12-44); MEAN CORPUSCULAR HEMOGLOBIN 30 PG (25-34); MEAN CORPUSCULAR HGB CONC 35 G/DL (32-36); MEAN CORPUSCULAR VOLUME 88 FL (80-99); MEAN PLATELET VOLUME 12.5 FL (7.4-10.4); MONOCYTES # (AUTO) 0.5 X 10^3 (0.0-1.0); MONOCYTES % (AUTO) 7 % (0-12); NEUTROPHILS # (AUTO) 3.5 X 10^3 (1.8-7.8); NEUTROPHILS % (AUTO) 46 % (42-75); PLATELET COUNT 195 10^3/uL (130-400); RED BLOOD COUNT 4.89 10^6/uL (4.35-5.85); RED CELL DISTRIBUTION WIDTH 13.1 % (10.0-14.5); WHITE BLOOD COUNT 7.8 10^3/uL (4.3-11.0)
[2017-01-17 19:17] LABS: INR 0.9 (0.8-1.4); PROTHROMBIN TIME PATIENT 12.4 SEC (12.2-14.7)
[2017-01-17 19:28] LABS: ALANINE AMINOTRANSFERASE 44 U/L (0-55); ALBUMIN 4.4 GM/DL (3.2-4.5); AMYLASE 56 U/L (25-125); ANION GAP 9 MMOL/L (5-14); ASPARTATE AMINO TRANSFERASE 43 U/L (5-34); BILIRUBIN,TOTAL 0.3 MG/DL (0.1-1.0); BLOOD UREA NITROGEN 16 MG/DL (7-18); BUN/CREATININE RATIO 14; CALCIUM 9.3 MG/DL (8.5-10.1); CARBON DIOXIDE 24 MMOL/L (21-32); CHLORIDE 107 MMOL/L (98-107); CREATINE KINASE 200 U/L (30-200); CREATININE SERUM 1.12 MG/DL (0.60-1.30); GFR ESTIMATED > 60; GLUCOSE 84 MG/DL (70-105); LIPASE 40 U/L (8-78); MAGNESIUM 2.1 MG/DL (1.8-2.4); SODIUM 140 MMOL/L (135-145); TOTAL PROTEIN 7.5 GM/DL (6.4-8.2)
[2017-01-17 19:34] LABS: TROPONIN I < 0.30 NG/ML (<0.30)
[2017-01-17] MEDS ORDERED: NITROGLYCERIN 2% OINT 1 GM UNIT DOSE PACKET TOP ONE (20:00)
[2017-01-17 20:20] VITALS: BP 131/91
[2017-01-17] MEDS ORDERED: IOHEXOL 350 MG/ML 150 ML (OMNIPAQUE 350) VIAL IV ONE (20:30)
[2017-01-17] MEDS ORDERED: NS 100 ML (IVPB) BAG IV ONE (20:30)
--- NOTE | 2017-01-17 20:30 | Diagnostic Imaging Report ---
INDICATION: Chest pain COMPARISON: 05/26/2015 FINDINGS: Single frontal view of the chest is obtained. Heart size is normal. The pulmonary vessels appear unremarkable. There is no pneumothorax, mediastinal widening or pleural fluid demonstrated. There is elevation of the right hemidiaphragm. The lungs are clear. IMPRESSION: No acute abnormality is demonstrated. Dictated by: Dictated on workstation # [id number]
--- NOTE | 2017-01-18 01:26 | ED Chest Pain ---
General Chief Complaint: Chest Pain Stated Complaint: CHEST PAIN Nursing Triage Note: patient reports chest pain x 3 days, patgient denies seeking treatment prior to today or taking medication for the pain. patient denies n/v, Nursing Sepsis Screen: No Definite Risk Source: patient History of Present Illness Time seen by provider: 18:48 Initial Comments PT ARRIVES VIA POV C/O CHEST PAIN X 3 DAYS, AND IS MUCH WORSE TODAY. 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 ORELLANA Allergies and Home Medications Allergies Coded Allergies: No Known Drug Allergies (Verified , 07/23/08) Home Medications No Active Prescriptions or Reported Meds Review of Systems Constitutional: no symptoms reported, No chills, No diaphoresis, No dizziness, No fever EENTM: No Symptoms Reported Respiratory: See HPI, Cough, SOA With Exertion, Denies Wheezing Cardiovascular: See HPI, Chest Pain, Denies Edema, Denies Irregular Heart Rate , Denies Lightheadedness, Denies Palpitations, Denies Syncope Gastrointestinal: No Symptoms Reported Genitourinary: No Symptoms Reported Musculoskeletal: no symptoms reported, No back pain Skin: no symptoms reported Psychiatric/Neurological: No Symptoms Reported, Denies Paresthesia Endocrine: No Symptoms Reported Hematologic/Lymphatic: No Symptoms Reported Past Izwodlb-Pmrtwo-Kpiygl Hx Patient Social History Alcohol Use: Denies Use Recreational Drug Use: Yes (THC) Drug of Choice: MARIJUANA Smoking Status: Current Someday Smoker 2nd Hand Smoke Exposure: No Recent Foreign Travel: No Contact w/Someone Who Travel: No Recent Infectious Disease Expo: No Recent Hopitalizations: No Physical Abuse: No Sexual Abuse: No Immunizations Up To Date Tetanus Booster (TDap): More than 5yrs Surgeries History of Surgeries: Yes (KIDNEY; LEFT KNEE SCOPE) Surgeries: Appendectomy, Gallbladder, Orthopedic Respiratory History of Respiratory Disorde: No Cardiovascular History of Cardiac Disorders: No Neurological History of Neurological Disord: No Reproductive System Hx Reproductive Disorders: No Sexually Transmitted Disease: No HIV/AIDS: No Genitourinary History of Genitourinary Disor: Yes Genitourinary Disorders: Kidney Stones Gastrointestinal History of Gastrointestinal Di: Yes Gastrointestinal Disorders: Gastroesophageal Reflux, Ulcer Musculoskeletal History of Musculoskeletal Dis: Yes (TORN MENISCUS-LEFT KNEE SCOPE) Musculoskeletal Disorders: Back Injury Endocrine History of Endocrine Disorders: No HEENT History of HEENT Disorders: No Cancer History of Cancer: No Did You Recieve Any Treatments: No Psychosocial History of Psychiatric Problem: No Suicide Risk Score: 0 Integumentary History of Skin or Integumenta: No Blood Transfusions History of Blood Disorders: No Family Medical History Significant Family History: Heart Disease, Diabetes Family Medial History: Family history: Arthritis G8 SISTER (SEVERE BACK PAIN) Family history: Cardiovascular disease 19 FATHER (PACEMAKER; FROM CARDIAC ISSUES) Family history: Diabetes mellitus 19 FATHER 19 MOTHER G8 BROTHER G8 SISTER Physical Exam Vital Signs Vital Sign - Last 12Hours 01/17/17 18:48 Temp 98.4 Pulse 79 Resp 18 B/P (MAP) 119/97 Pulse Ox 95 O2 Delivery Room Air Capillary Refill : Less Than 3 Seconds General Appearance: No Apparent Distress, WD/WN Neck: Full Range of Motion, Normal Inspection, Non Tender, Supple, No Carotid Bruit, No JVD Respiratory: Chest Non Tender, Normal Breath Sounds, No Accessory Muscle Use, No Respiratory Distress Cardiovascular: Regular Rate, Rhythm, No Edema, No Gallop, No JVD, No Murmur, Normal Peripheral Pulses Gastrointestinal: Normal Bowel Sounds, No Organomegaly, No Pulsatile Mass, Non Tender, Soft Extremity: Normal Capillary Refill, Normal Inspection, Normal Range of Motion, Non Tender, No Calf Tenderness, No Pedal Edema Neurologic/Psychiatric: Alert, Oriented x3, No Motor/Sensory Deficits, Normal Mood/Affect, 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 Skin: Normal Color, Warm/Dry, No Rash, Tattoos/Piercings (MULTIPLE TATTOOS) Progress/Results/Core Measures Results/Orders Lab Results Laboratory Tests Test 01/17/17 18:50 Range/Units White Blood Count 7.8 4.3-11.0 10^3/uL Red Blood Count 4.89 4.35-5.85 10^6/uL Hemoglobin 14.8 13.3-17.7 G/DL Hematocrit 43 40-54 % Mean Corpuscular Volume 88 80-99 FL Mean Corpuscular Hemoglobin 30 25-34 PG Mean Corpuscular Hemoglobin Concent 35 32-36 G/DL Red Cell Distribution Width 13.1 10.0-14.5 % Platelet Count 195 130-400 10^3/uL Mean Platelet Volume 12.5 H 7.4-10.4 FL Neutrophils (%) (Auto) 46 42-75 % Lymphocytes (%) (Auto) 42 12-44 % Monocytes (%) (Auto) 7 0-12 % Eosinophils (%) (Auto) 4 0-10 % Basophils (%) (Auto) 2 0-10 % Neutrophils # (Auto) 3.5 1.8-7.8 X 10^3 Lymphocytes # (Auto) 3.2 1.0-4.0 X 10^3 Monocytes # (Auto) 0.5 0.0-1.0 X 10^3 Eosinophils # (Auto) 0.3 0.0-0.3 10^3/uL Basophils # (Auto) 0.1 0.0-0.1 10^3/uL Prothrombin Time 12.4 12.2-14.7 SEC INR Comment 0.9 0.8-1.4 Activated Partial Thromboplast Time 29 24-35 SEC Sodium Level 140 135-145 MMOL/L Potassium Level 4.0 3.6-5.0 MMOL/L Chloride Level 107 98-107 MMOL/L Carbon Dioxide Level 24 21-32 MMOL/L Anion Gap 9 5-14 MMOL/L Blood Urea Nitrogen 16 7-18 MG/DL Creatinine 1.12 0.60-1.30 MG/DL Estimat Glomerular Filtration Rate > 60 BUN/Creatinine Ratio 14 Glucose Level 84 70-105 MG/DL Calcium Level 9.3 8.5-10.1 MG/DL Magnesium Level 2.1 1.8-2.4 MG/DL Total Bilirubin 0.3 0.1-1.0 MG/DL Aspartate Amino Transf (AST/SGOT) 43 H 5-34 U/L Alanine Aminotransferase (ALT/SGPT) 44 0-55 U/L Alkaline Phosphatase 58 40-136 U/L Total Creatine Kinase 200 30-200 U/L Creatine Kinase MB 2.0 <6.6 NG/ML Troponin I < 0.30 <0.30 NG/ML B-Type Natriuretic Peptide < 10.0 <100.0 PG/ML Total Protein 7.5 6.4-8.2 GM/DL Albumin 4.4 3.2-4.5 GM/DL Amylase Level 56 25-125 U/L Lipase 40 8-78 U/L My Orders Orders - INDIAABRAN Prabhu COOL Amylase (01/17/17 18:48) Cbc With Automated Diff (01/17/17 18:48) Comprehensive Metabolic Panel (01/17/17 18:48) Creatine Kinase (01/17/17 18:48) Creatine Kinase Mb (01/17/17 18:48) Lipase (01/17/17 18:48) Partial Thromboplastin Time (01/17/17 18:48) Protime With Inr (01/17/17 18:48) Troponin I (01/17/17 18:48) Chest 1 View, Ap/Pa Only (01/17/17 18:48) O2 (01/17/17 18:48) Ekg Tracing (01/17/17 18:48) Aspirin Chewable Tablet (Baby Aspirin Ch (01/17/17 19:00) Rx-Nitroglycerin Sl Tabs (Rx-Nitrostat S (01/17/17 19:00) BNP (01/17/17 18:48) Monitor-Rhythm Ecg Trace Only (01/17/17 18:48) Magnesium (01/17/17 18:48) Nitroglycerin Ointment (Nitrobid Ointme (01/17/17 20:00) Iohexol Injection (Omnipaque 350 Mg/Ml 1 (01/17/17 20:30) Ns (Ivpb) (Sodium Chloride 0.9% Ivpb Bag (01/17/17 20:30) Medications Given in ED Current Medications Medications Dose Ordered Sig/Krissy Route Start Time Stop Time Status Last Admin Dose Admin Aspirin 324 mg ONCE ONCE PO 01/17/17 19:00 01/17/17 19:01 DC 01/17/17 19:02 324 MG Vital Signs/I&O Vital Sign - Last 12Hours 01/17/17 01/17/17 01/17/17 18:48 18:48 20:20 Temp 98.4 Pulse 79 72 Resp 18 18 B/P (MAP) 119/97 131/91 Pulse Ox 95 99 O2 Delivery Room Air Blood Pressure Mean: 104 Progress Note : Progress Note PAIN RELIEVED WITH NTG. 2020--PT REFUSING CT CHEST, AND REFUSING ADMIT. AMA PAPERS SIGNED. ECG Initial ECG Impression Time: 18:46 Initial ECG Rate: 82 Initial ECG Rhythm: Normal Sinus Initial ECG Comparisson: No Previous ECG Available Diagnostic Imaging Comments CXR--NO ACUTE PROCESS, PER RADIOLOGIST REPORT Reviewed: Reviewed by Me Departure Impression Impression: Primary Impression: Left against medical advice Additional Impression: Chest pain Disposition: 07 AGAINST MEDICAL ADVICE Condition: Against Medical Advice Departure-Patient Inst. Referrals: CHRIS ORELLANA MD (PCP) Primary Care Physician Scripts No Active Prescriptions or Reported Meds ABRAN OSBORNE DO Jan 18, 2017 01:26
== END 2017-01-17 20:19 | disposition left against medical advice (07) ==
LOC: EDUNIT# 18:42 → ER 18:44
DX: Z82.49 Family history of ischemic heart disease and other diseases of the circulatory system; K21.9 Gastro-esophageal reflux disease without esophagitis; Z90.49 Acquired absence of other specified parts of digestive tract; R07.9 Chest pain, unspecified; Z87.828 Personal history of other (healed) physical injury and trauma; Z87.442 Personal history of urinary calculi
CPT/HCPCS: 36415; 71010; 80053; 82150; 82550; 82553; 83690; 83735; 83880; 84484; 85025; 85610; 85730; 93005; 93041

== ENCOUNTER 2017-08-02 05:39 | Outpatient (CLI) | payer MEDICAID ==
[~2017-08-02] VITALS: Ht 190.5 cm; Wt 106.7 kg
[~2017-08-02 05:39] MED LIST changes: +ACHD5005 PO; -HYDR-3812 PO; +NAPR-1071 PO; -NAPR500T PO
[2017-08-09] MEDS ORDERED: PANT40TA2 PO (12:37)
== END 2017-08-02 14:31 ==
LOC: PREOP 05:39
PROVIDERS: ATTEND Surgery
DX: Z01.818 Encounter for other preprocedural examination (principal); K92.1 Melena; K21.9 Gastro-esophageal reflux disease without esophagitis; Z86.010 Personal history of colon polyps; Z80.0 Family history of malignant neoplasm of digestive organs

== ENCOUNTER 2017-09-08 14:00 | Emergency (ER) | payer MEDICAID ==
[~2017-09-08] VITALS: Ht 190.5 cm; Wt 106.7 kg
[~2017-09-08 14:00] MED LIST changes: +PANT40TA2 PO
--- NOTE | 2017-09-08 14:21 | ED GU-Male ---
General Chief Complaint: Abdominal/GI Problems Stated Complaint: EAR INFECTION, POSS KIDNEY STONE Source: patient Exam Limitations: no limitations History of Present Illness Date Seen by Provider: September 08, 2017 Time Seen by Provider: 14:19 Initial Comments to ER with reports of pain in the left flankwith urinary hesitancy 1 week. History of kidney stones, this feels similar. No fevers or chills but he has had nausea without vomiting. Also believes he has a left ear infection. He has brief shooting pains that last only 2-3 seconds before resolving and this affects the area just anterior and inferior to the left ear. No cough or rhinorrhea or sore throat. Timing/Duration: constant Severity/Quality: moderate Location: left flank Radiation: none Activities at Onset: none Associated Symptoms: dysuria, lower back pain, nausea/vomiting, urinary frequency Allergies and Home Medications Allergies Coded Allergies: No Known Drug Allergies (Unverified , 08/02/17) Home Medications Cyclobenzaprine HCl 5 Mg Tablet, 5 MG PO TID Prescribed by: ARTHUR HILL on 09/08/17 1503 Naproxen 500 Mg Tablet, 500 MG PO BID PRN for PAIN-MODERATE TO SEVERE Prescribed by: ARTHUR HILL on 09/08/17 1503 Pantoprazole Sodium 40 Mg Tablet.dr, 40 MG PO DAILY Prescribed by: CASSANDRA YOUNG on 08/09/17 1237 Patient Home Medication List Home Medication List Reviewed: Yes Review of Systems Constitutional: see HPI EENTM: see HPI Respiratory: no symptoms reported Cardiovascular: no symptoms reported Genitourinary: no symptoms reported Musculoskeletal: no symptoms reported Skin: no symptoms reported Psychiatric/Neurological: No Symptoms Reported Endocrine: No Symptoms Reported Hematologic/Lymphatic: No Symptoms Reported (Michelle Tylenol or) Past Lsfbput-Vthsmj-Gjxxhd Hx Patient Social History Alcohol Use: Rarely Uses Recreational Drug Use: No (6YEARS AGO METH) Drug of Choice: MARIJUANA Smoking Status: Never a Smoker 2nd Hand Smoke Exposure: No Recent Foreign Travel: No Contact w/Someone Who Travel: No Recent Hopitalizations: No Immunizations Up To Date Tetanus Booster (TDap): More than 5yrs Seasonal Allergies Seasonal Allergies: No Past Medical History Surgeries: Yes (KIDNEY STONES; LEFT KNEE SCOPE, GALLBLADDER ?) Appendectomy, Orthopedic Respiratory: No Cardiac: No Neurological: No Reproductive Disorders: No Sexually Transmitted Disease: No HIV/AIDS: No Genitourinary: Yes Kidney Stones Gastrointestinal: Yes (BLOOD IN STOOLS) Gastroesophageal Reflux, Ulcer Musculoskeletal: Yes (TORN MENISCUS-LEFT KNEE SCOPE) Back Injury Endocrine: No HEENT: No Loss of Vision: Denies Hearing Impairment: Denies Cancer: No Did You Recieve Any Treatments: No Psychosocial: No Integumentary: No Blood Disorders: No Adverse Reaction/Blood Tranf: No Family Medical History Family history: Arthritis G8 SISTER (SEVERE BACK PAIN) Family history: Cardiovascular disease 19 FATHER (PACEMAKER; FROM CARDIAC ISSUES) Family history: Diabetes mellitus 19 FATHER 19 MOTHER G8 BROTHER G8 SISTER Heart Disease, Diabetes Physical Exam Vital Signs Vital Signs - First Documented 09/08/17 14:16 Temp 98.0 Pulse 72 Resp 18 B/P (MAP) 118/79 (92) Pulse Ox 99 Capillary Refill : General Appearance: WD/WN, no apparent distress HEENT: PERRL/EOMI, normal ENT inspection; No TM abnormal (R), No TM abnormal (L ); other (no external ear canal swelling or erythema. No mastoid tenderness. No lesions on the face. No parotid tenderness to palpation) Neck: non-tender, full range of motion Cardiovascular: regular rate, rhythm Respiratory: no respiratory distress, no accessory muscle use Gastrointestinal: normal bowel sounds, non tender, soft (cchief) Extremities: normal range of motion, non-tender Neurologic/Psychiatric: alert, normal mood/affect, oriented x 3 Skin: normal color, warm/dry Progress/Results/Core Measures Suspected Sepsis SIRS Temperature: Pulse: Respiratory Rate: Laboratory Tests 09/08/17 14:16: White Blood Count 5.6 Blood Pressure / Mean: Laboratory Tests 09/08/17 14:16: Creatinine 1.14, Platelet Count 161 Results/Orders Lab Results Laboratory Tests Test 09/08/17 14:16 Range/Units White Blood Count 5.6 4.3-11.0 10^3/uL Red Blood Count 5.15 4.35-5.85 10^6/uL Hemoglobin 15.5 13.3-17.7 G/DL Hematocrit 45 40-54 % Mean Corpuscular Volume 87 80-99 FL Mean Corpuscular Hemoglobin 30 25-34 PG Mean Corpuscular Hemoglobin Concent 34 32-36 G/DL Red Cell Distribution Width 13.5 10.0-14.5 % Platelet Count 161 130-400 10^3/uL Mean Platelet Volume 12.5 H 7.4-10.4 FL Neutrophils (%) (Auto) 46 42-75 % Lymphocytes (%) (Auto) 37 12-44 % Monocytes (%) (Auto) 11 0-12 % Eosinophils (%) (Auto) 4 0-10 % Basophils (%) (Auto) 2 0-10 % Neutrophils # (Auto) 2.6 1.8-7.8 X 10^3 Lymphocytes # (Auto) 2.1 1.0-4.0 X 10^3 Monocytes # (Auto) 0.6 0.0-1.0 X 10^3 Eosinophils # (Auto) 0.2 0.0-0.3 10^3/uL Basophils # (Auto) 0.1 0.0-0.1 10^3/uL Urine Color YELLOW Urine Clarity CLEAR Urine pH 5 5-9 Urine Specific [place] 1.030 H 1.016-1.022 Urine Protein NEGATIVE NEGATIVE Urine Glucose (UA) NEGATIVE NEGATIVE Urine Ketones NEGATIVE NEGATIVE Urine Nitrite NEGATIVE NEGATIVE Urine Bilirubin NEGATIVE NEGATIVE Urine Urobilinogen NORMAL NORMAL MG/DL Urine Leukocyte Esterase NEGATIVE NEGATIVE Urine RBC (Auto) NEGATIVE NEGATIVE Urine RBC NONE /HPF Urine WBC NONE /HPF Urine Squamous Epithelial Cells 2-5 /HPF Urine Crystals NONE /LPF Urine Bacteria NEGATIVE /HPF Urine Casts NONE /LPF Urine Mucus MODERATE H /LPF Urine Culture Indicated NO Sodium Level 141 135-145 MMOL/L Potassium Level 4.4 3.6-5.0 MMOL/L Chloride Level 107 98-107 MMOL/L Carbon Dioxide Level 25 21-32 MMOL/L Anion Gap 9 5-14 MMOL/L Blood Urea Nitrogen 15 7-18 MG/DL Creatinine 1.14 0.60-1.30 MG/DL Estimat Glomerular Filtration Rate > 60 BUN/Creatinine Ratio 13 Glucose Level 81 70-105 MG/DL Calcium Level 9.9 8.5-10.1 MG/DL My Orders Orders - ARTHUR HILL APRN Cbc With Automated Diff (09/08/17 14:03) Basic Metabolic Panel (09/08/17 14:03) Ua Culture If Indicated (09/08/17 14:03) Abdomen/Kub 1view (09/08/17 14:18) Ct Abd/Pelvis Wo(Kidney Stone) (09/08/17 14:18) Ketorolac Injection (Toradol Injection) (09/08/17 14:30) Ondansetron Injection (Zofran Injectio (09/08/17 14:30) Ns Iv 1000 Ml (Sodium Chloride 0.9%) (09/08/17 14:30) Medications Given in ED Current Medications Medications Dose Ordered Sig/Krissy Route Start Time Stop Time Status Last Admin Dose Admin Ketorolac Tromethamine 15 mg ONCE ONCE IVP 09/08/17 14:30 09/08/17 14:31 DC 09/08/17 14:40 15 MG Ondansetron HCl 4 mg ONCE ONCE IVP 09/08/17 14:30 09/08/17 14:31 DC 09/08/17 14:40 4 MG Vital Signs/I&O 09/08/17 14:16 Temp 98.0 Pulse 72 Resp 18 B/P (MAP) 118/79 (92) Pulse Ox 99 Capillary Refill : Departure Impression Primary Impression: Flank pain, acute Additional Impression: Ear pain, left Disposition: 01 HOME, SELF-CARE Condition: Stable Departure-Patient Inst. Decision time for Depature: 15:01 Referrals: CHRIS ORELLANA MD (PCP/Family) Primary Care Physician Patient Instructions: Flank Pain Add. Discharge Instructions: 1. Return to ER for any concerns 2. See your doctor next week for recheck All discharge instructions reviewed with patient and/or family. Voiced understanding. Scripts Cyclobenzaprine HCl (Cyclobenzaprine HCl) 5 Mg Tablet 5 MG PO TID, #21 TAB Prov: ARTHUR HILL APRN 09/08/17 Naproxen (Naprosyn) 500 Mg Tablet 500 MG PO BID PRN for PAIN-MODERATE TO SEVERE, #30 TAB Prov: ARTHUR HILL APRN 09/08/17 Work/School Note: Work Release Form Date Seen in the Emergency Department: September 08, 2017 Return to Work: September 09, 2017 ARTHUR HILL APRN September 08, 2017 14:21
[2017-09-08] MEDS: KETOROLAC 30 MG/ML VIAL IVP ONE (14:40)
[2017-09-08] MEDS: NS IV 1000 ML 1,000 ML IV SCH (14:40)
[2017-09-08] MEDS: ONDANSETRON 4 MG/2 ML (SDV) Z0FRAN IVP ONE (14:40)
[2017-09-08 14:44] LABS: BILIRUBIN,URINE NEGATIVE (NEGATIVE); CLARITY,URINE CLEAR; COLOR,URINE YELLOW; GLUCOSE, URINE (UA) NEGATIVE (NEGATIVE); KETONES,URINE NEGATIVE (NEGATIVE); LEUKOCYTE ESTERASE ,URINE NEGATIVE (NEGATIVE); NITRITE,URINE NEGATIVE (NEGATIVE); PH,URINE 5 (5-9); PROTEIN,URINE NEGATIVE (NEGATIVE); UROBILINOGEN,URINE NORMAL (NORMAL)
[2017-09-08 14:45] LABS: BASOPHILS # (AUTO) 0.1 10^3/uL (0.0-0.1); BASOPHILS % (AUTO) 2 % (0-10); EOSINOPHILS # (AUTO) 0.2 10^3/uL (0.0-0.3); EOSINOPHILS % (AUTO) 4 % (0-10); HEMATOCRIT 45 % (40-54); HEMOGLOBIN 15.5 G/DL (13.3-17.7); LYMPHOCYTES # (AUTO) 2.1 X 10^3 (1.0-4.0); LYMPHOCYTES % (AUTO) 37 % (12-44); MEAN CORPUSCULAR HEMOGLOBIN 30 PG (25-34); MEAN CORPUSCULAR HGB CONC 34 G/DL (32-36); MEAN CORPUSCULAR VOLUME 87 FL (80-99); MEAN PLATELET VOLUME 12.5 FL (7.4-10.4); MONOCYTES # (AUTO) 0.6 X 10^3 (0.0-1.0); MONOCYTES % (AUTO) 11 % (0-12); NEUTROPHILS # (AUTO) 2.6 X 10^3 (1.8-7.8); NEUTROPHILS % (AUTO) 46 % (42-75); PLATELET COUNT 161 10^3/uL (130-400); RED BLOOD COUNT 5.15 10^6/uL (4.35-5.85); RED CELL DISTRIBUTION WIDTH 13.5 % (10.0-14.5); WHITE BLOOD COUNT 5.6 10^3/uL (4.3-11.0)
[2017-09-08 14:57] LABS: BACTERIA,URINE NEGATIVE /HPF
[2017-09-08 15:03] LABS: BUN/CREATININE RATIO 13; CALCIUM 9.9 MG/DL (8.5-10.1); CARBON DIOXIDE 25 MMOL/L (21-32); CHLORIDE 107 MMOL/L (98-107); CREATININE SERUM 1.14 MG/DL (0.60-1.30); GFR ESTIMATED > 60; GLUCOSE 81 MG/DL (70-105); POTASSIUM 4.4 MMOL/L (3.6-5.0); SODIUM 141 MMOL/L (135-145)
[2017-09-08] MEDS ORDERED: NAPR-1071 PO (15:03)
[2017-09-08] MEDS ORDERED: CYCL5TAB PO (15:03)
--- NOTE | 2017-09-08 15:13 | Diagnostic Imaging Report ---
PROCEDURE: CT urinary tract, rule out kidney stone. TECHNIQUE: Multiple contiguous axial images were obtained through the abdomen and pelvis without the use of intravenous contrast. INDICATION: Left flank pain. COMPARISON is made with prior study from 07/19/2016. FINDINGS: The lung bases are clear. No discrete liver mass is identified. The gallbladder is contracted. The pancreas and spleen are unremarkable. No adrenal mass is detected. Punctate nonobstructing calculus of the left kidney is again noted. No right renal calculi are seen. There is no hydronephrosis. No ureteral calculi are seen. The bladder is decompressed. The aorta is non-aneurysmal. The small and large bowel loops are normal caliber. There is no ascites. No inflammatory process is seen. IMPRESSION: Tiny nonobstructing left renal calculus. No acute feature is detected. Dictated by: Dictated on workstation # [id number]
--- NOTE | 2017-09-08 15:14 | Diagnostic Imaging Report ---
INDICATION: Flank pain and history of kidney stones. FINDINGS: The bowel gas pattern is nonspecific. No definitive calcifications are projected over either kidney. The osseous structures are unremarkable. IMPRESSION: No evidence of nephrolithiasis. Dictated by: Dictated on workstation # [id number]
[2017-09-08 15:24] VITALS: BP 130/80
== END 2017-09-08 15:24 | disposition home or self-care (01) ==
LOC: EDUNIT# 14:00 → ER 14:01
DX: H92.02 Otalgia, left ear (principal); R10.9 Unspecified abdominal pain; K21.9 Gastro-esophageal reflux disease without esophagitis; Z90.49 Acquired absence of other specified parts of digestive tract; Z87.442 Personal history of urinary calculi
CPT/HCPCS: 36415; 74018; 74176; 80048; 81000; 85025; 96361; 96374; 96375

== ENCOUNTER 2017-09-21 09:43 | Emergency (ER) | payer MEDICAID ==
[~2017-09-21] VITALS: Ht 190.5 cm; Wt 104.3 kg
[~2017-09-21 09:43] MED LIST changes: +CYCL5TAB PO
[2017-09-21 10:08] LABS: BILIRUBIN,URINE NEGATIVE (NEGATIVE); CLARITY,URINE SLIGHTLY CLOUDY; COLOR,URINE YELLOW; GLUCOSE, URINE (UA) NEGATIVE (NEGATIVE); KETONES,URINE NEGATIVE (NEGATIVE); LEUKOCYTE ESTERASE ,URINE NEGATIVE (NEGATIVE); NITRITE,URINE NEGATIVE (NEGATIVE); PH,URINE 5 (5-9); PROTEIN,URINE NEGATIVE (NEGATIVE); UROBILINOGEN,URINE NORMAL (NORMAL)
[2017-09-21 10:15] LABS: BACTERIA,URINE TRACE /HPF; WBC,URINE RARE /HPF
[2017-09-21] MEDS ORDERED: NS IV 1000 ML 1,000 ML IV ONE (10:31)
[2017-09-21] MEDS ORDERED: ONDANSETRON 4 MG/2 ML (SDV) Z0FRAN IVP ONE (10:45)
[2017-09-21] MEDS ORDERED: KETOROLAC 30 MG/ML VIAL IVP ONE (10:45)
[2017-09-21 10:58] LABS: BASOPHILS # (AUTO) 0.1 10^3/uL (0.0-0.1); BASOPHILS % (AUTO) 1 % (0-10); EOSINOPHILS # (AUTO) 0.2 10^3/uL (0.0-0.3); EOSINOPHILS % (AUTO) 3 % (0-10); HEMATOCRIT 43 % (40-54); HEMOGLOBIN 14.9 G/DL (13.3-17.7); LYMPHOCYTES # (AUTO) 3.2 X 10^3 (1.0-4.0); LYMPHOCYTES % (AUTO) 44 % (12-44); MEAN CORPUSCULAR HEMOGLOBIN 30 PG (25-34); MEAN CORPUSCULAR HGB CONC 35 G/DL (32-36); MEAN CORPUSCULAR VOLUME 87 FL (80-99); MONOCYTES # (AUTO) 0.6 X 10^3 (0.0-1.0); MONOCYTES % (AUTO) 8 % (0-12); NEUTROPHILS # (AUTO) 3.3 X 10^3 (1.8-7.8); NEUTROPHILS % (AUTO) 45 % (42-75); PLATELET COUNT 184 10^3/uL (130-400); RED BLOOD COUNT 4.97 10^6/uL (4.35-5.85); RED CELL DISTRIBUTION WIDTH 13.4 % (10.0-14.5); WHITE BLOOD COUNT 7.3 10^3/uL (4.3-11.0)
[2017-09-21 11:17] LABS: ALANINE AMINOTRANSFERASE 88 U/L (0-55); ALBUMIN 4.3 GM/DL (3.2-4.5); ALKALINE PHOSPHATASE 56 U/L (40-136); BUN/CREATININE RATIO 14; CALCIUM 9.2 MG/DL (8.5-10.1); CARBON DIOXIDE 22 MMOL/L (21-32); CHLORIDE 107 MMOL/L (98-107); CREATININE SERUM 1.02 MG/DL (0.60-1.30); GFR ESTIMATED > 60; GLUCOSE 83 MG/DL (70-105); POTASSIUM 4.3 MMOL/L (3.6-5.0); SODIUM 140 MMOL/L (135-145); TOTAL PROTEIN 6.8 GM/DL (6.4-8.2)
--- NOTE | 2017-09-21 12:44 | ED Abdominal Pain ---
General Chief Complaint: Abdominal/GI Problems Stated Complaint: LOWER ABD PAIN LT SIDE Nursing Triage Note: PT CO OF ABD PAIN, PT STATES HAD STONE IN KIDNEY LAST WEEK, STARTED YESTERDAY ABOUT 1500. 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 He was seen on September 08 for left flank pain and was found to have a small kidney stone on the left. He has nausea. Patient denies any hematuria, vomiting, constipation, diarrhea, or other acute symptoms. Imaging reports were reviewed and images of CT and x-ray were reviewed by me. Allergies and Home Medications Allergies Coded Allergies: No Known Drug Allergies (Unverified , 08/02/17) Home Medications Cyclobenzaprine HCl 5 Mg Tablet, 5 MG PO TID Prescribed by: ARTHUR HILL on 09/08/17 1503 Hydrocodone/Acetaminophen 1 Each Tablet, 1 EACH PO Q4H Prescribed by: THA CHAN on 09/21/17 1245 Naproxen 500 Mg Tablet, 500 MG PO BID PRN for PAIN-MODERATE TO SEVERE Prescribed by: ARTHUR HILL on 09/08/17 1503 Ondansetron 4 Mg Tab.rapdis, 4 MG SL Q4H PRN for NAUSEA/VOMITING-1ST LINE Prescribed by: THA CHAN on 09/21/17 1245 Pantoprazole Sodium 40 Mg Tablet.dr, 40 MG PO DAILY Prescribed by: CASSANDRA YOUNG on 08/09/17 1237 Patient Home Medication List Home Medication List Reviewed: Yes Review of Systems Constitutional: no symptoms reported EENTM: No Symptoms Reported Respiratory: No Symptoms Reported Cardiovascular: No Symptoms Reported Gastrointestinal: See HPI Genitourinary: See HPI Musculoskeletal: no symptoms reported Skin: no symptoms reported Psychiatric/Neurological: No Symptoms Reported Endocrine: No Symptoms Reported Past Jxjjmts-Xkawui-Wjrbzz Hx Past Med/Social Hx: Reviewed Nursing Past Med/Soc Hx Patient Social History Alcohol Use: Rarely Uses 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) Drug of Choice: MARIJUANA 2nd Hand Smoke Exposure: No Recent Foreign Travel: No Contact w/Someone Who Travel: No Recent Infectious Disease Expo: No Recent Hopitalizations: No Immunizations Up To Date Tetanus Booster (TDap): More than 5yrs Seasonal Allergies Seasonal Allergies: No Past Medical History Surgeries: Yes (KIDNEY STONES; LEFT KNEE SCOPE, GALLBLADDER ?) Appendectomy, Orthopedic Respiratory: No Cardiac: No Neurological: No Reproductive Disorders: No Sexually Transmitted Disease: No HIV/AIDS: No Genitourinary: Yes Kidney Stones Gastrointestinal: Yes (BLOOD IN STOOLS) Gastroesophageal Reflux, Ulcer Musculoskeletal: Yes (TORN MENISCUS-LEFT KNEE SCOPE) Back Injury Endocrine: No HEENT: No Loss of Vision: Denies Hearing Impairment: Denies Cancer: No Did You Recieve Any Treatments: No Psychosocial: No Integumentary: No Blood Disorders: No Adverse Reaction/Blood Tranf: No Family Medical History Reviewed Nursing Family Hx Family history: Arthritis G8 SISTER (SEVERE BACK PAIN) Family history: Cardiovascular disease 19 FATHER (PACEMAKER; FROM CARDIAC ISSUES) Family history: Diabetes mellitus 19 FATHER 19 MOTHER G8 BROTHER G8 SISTER Heart Disease, Diabetes Physical Exam Vital Signs Vital Signs - First Documented 09/21/17 09:59 Temp 97.1 Pulse 66 Resp 18 B/P (MAP) 123/74 (90) Pulse Ox 96 Capillary Refill : Less Than 3 Seconds General Appearance: WD/WN, mild distress HEENT: PERRL/EOMI, normal ENT inspection, pharynx normal Neck: normal inspection Respiratory: lungs clear, normal breath sounds, no respiratory distress, no accessory muscle use Cardiovascular: regular rate, rhythm, no edema, no murmur Gastrointestinal: normal bowel sounds, soft, tenderness (Left lower quadrant) Extremities: normal inspection, no pedal edema 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, no motor/sensory deficits, alert, normal mood/affect, oriented x 3 Skin: normal color, warm/dry Progress/Results/Core Measures Results/Orders Lab Results Laboratory Tests Test 09/21/17 10:00 09/21/17 10:50 Range/Units Urine Color YELLOW Urine Clarity SLIGHTLY CLOUDY Urine pH 5 5-9 Urine Specific [place] 1.025 H 1.016-1.022 Urine Protein NEGATIVE NEGATIVE Urine Glucose (UA) NEGATIVE NEGATIVE Urine Ketones NEGATIVE NEGATIVE Urine Nitrite NEGATIVE NEGATIVE Urine Bilirubin NEGATIVE NEGATIVE Urine Urobilinogen NORMAL NORMAL MG/DL Urine Leukocyte Esterase NEGATIVE NEGATIVE Urine RBC (Auto) NEGATIVE NEGATIVE Urine RBC NONE /HPF Urine WBC RARE /HPF Urine Crystals NONE /LPF Urine Bacteria TRACE /HPF Urine Casts NONE /LPF Urine Mucus SMALL H /LPF Urine Culture Indicated NO White Blood Count 7.3 4.3-11.0 10^3/uL Red Blood Count 4.97 4.35-5.85 10^6/uL Hemoglobin 14.9 13.3-17.7 G/DL Hematocrit 43 40-54 % Mean Corpuscular Volume 87 80-99 FL Mean Corpuscular Hemoglobin 30 25-34 PG Mean Corpuscular Hemoglobin Concent 35 32-36 G/DL Red Cell Distribution Width 13.4 10.0-14.5 % Platelet Count 184 130-400 10^3/uL Mean Platelet Volume 12.0 H 7.4-10.4 FL Neutrophils (%) (Auto) 45 42-75 % Lymphocytes (%) (Auto) 44 12-44 % Monocytes (%) (Auto) 8 0-12 % Eosinophils (%) (Auto) 3 0-10 % Basophils (%) (Auto) 1 0-10 % Neutrophils # (Auto) 3.3 1.8-7.8 X 10^3 Lymphocytes # (Auto) 3.2 1.0-4.0 X 10^3 Monocytes # (Auto) 0.6 0.0-1.0 X 10^3 Eosinophils # (Auto) 0.2 0.0-0.3 10^3/uL Basophils # (Auto) 0.1 0.0-0.1 10^3/uL Sodium Level 140 135-145 MMOL/L Potassium Level 4.3 3.6-5.0 MMOL/L Chloride Level 107 98-107 MMOL/L Carbon Dioxide Level 22 21-32 MMOL/L Anion Gap 11 5-14 MMOL/L Blood Urea Nitrogen 14 7-18 MG/DL Creatinine 1.02 0.60-1.30 MG/DL Estimat Glomerular Filtration Rate > 60 BUN/Creatinine Ratio 14 Glucose Level 83 70-105 MG/DL Calcium Level 9.2 8.5-10.1 MG/DL Total Bilirubin 1.0 0.1-1.0 MG/DL Aspartate Amino Transf (AST/SGOT) 55 H 5-34 U/L Alanine Aminotransferase (ALT/SGPT) 88 H 0-55 U/L Alkaline Phosphatase 56 40-136 U/L Total Protein 6.8 6.4-8.2 GM/DL Albumin 4.3 3.2-4.5 GM/DL My Orders Orders - THA DIEGO MD Ua Culture If Indicated (09/21/17 09:50) Cbc With Automated Diff (09/21/17 10:31) Comprehensive Metabolic Panel (09/21/17 10:31) Saline Lock/Iv-Start (09/21/17 10:31) Ns Iv 1000 Ml (Sodium Chloride 0.9%) (09/21/17 10:31) Ketorolac Injection (Toradol Injection) (09/21/17 10:45) Ondansetron Injection (Zofran Injectio (09/21/17 10:45) Tramadol Tablet (Ultram Tablet) (09/21/17 12:30) Medications Given in ED Vital Signs/I&O 09/21/17 09/21/17 09:59 13:06 Temp 97.1 97.1 Pulse 66 66 Resp 18 18 B/P (MAP) 123/74 (90) 123/74 (90) Pulse Ox 96 96 Blood Pressure Mean: 90 Progress Progress Note : Progress Note After review of chart pain was felt to be most likely related to the small stone in his left kidney. He may have descended into the ureter. Patient was treated with Zofran, Toradol, IV fluids, and Ultram. Patient was given a strainer and instructed to strain his urine. Symptoms improved significantly. Patient is to follow-up in the clinical setting. Departure Impression Primary Impression: Left lower quadrant pain Additional Impressions: Nephrolithiasis Nausea and vomiting Qualified Codes: R11.2 - Nausea with vomiting, unspecified Disposition: 01 HOME, SELF-CARE Condition: Improved Departure-Patient Inst. Decision time for Depature: 12:15 Referrals: CHRIS ORELLANA MD (PCP/Family) Primary Care Physician Patient Instructions: Kidney Stones (DC) Add. Discharge Instructions: Drink plenty of clear liquids. Follow-up with your primary care provider or Dr. Castillo as soon as possible. You may take ibuprofen up to 600 mg every 6 hours as needed for pain. Add hydrocodone as prescribed for pain not controlled by ibuprofen. You may use Zofran (ondansetron) as prescribed for nausea and vomiting. Return to the emergency room if you have worsening symptoms or develop new symptoms such as fever. All discharge instructions reviewed with patient and/or family. Voiced understanding. Scripts Hydrocodone/Acetaminophen (Hydrocodone-Acetamin 5-325 mg) 1 Each Tablet 1 EACH PO Q4H, #10 TAB Prov: THA DIEGO MD 09/21/17 Ondansetron (Zofran Odt) 4 Mg Tab.rapdis 4 MG SL Q4H PRN for NAUSEA/VOMITING-1ST LINE, #10 TAB Prov: THA DIEGO MD 09/21/17 THA DIEGO MD Sep 21, 2017 12:44
[2017-09-21] MEDS ORDERED: ONDA4TAB8 SL (12:45)
[2017-09-21] MEDS ORDERED: HYDR-3812 PO (12:45)
[2017-09-21 13:06] VITALS: BP 123/74
== END 2017-09-21 13:06 | disposition home or self-care (01) ==
LOC: EDUNIT# 09:43 → ER 09:45
DX: N20.0 Calculus of kidney (principal); K21.9 Gastro-esophageal reflux disease without esophagitis; F12.10 Cannabis abuse, uncomplicated; Z90.89 Acquired absence of other organs; Z87.442 Personal history of urinary calculi; Z82.49 Family history of ischemic heart disease and other diseases of the circulatory system; Z87.19 Personal history of other diseases of the digestive system
CPT/HCPCS: 36415; 80053; 81000; 85025; 96361; 96374; 96375

== ENCOUNTER 2017-11-30 13:12 | Emergency (ER) | payer MEDICAID ==
[~2017-11-30] VITALS: Ht 190.5 cm; Wt 104.3 kg
[~2017-11-30 13:12] MED LIST changes: +HYDR-3812 PO; +ONDA4TAB8 SL
[2017-11-30] MEDS ORDERED: KETOROLAC 30 MG/ML VIAL IVP ONE (13:30)
[2017-11-30] MEDS ORDERED: NYST1POW22 MC (13:30)
--- NOTE | 2017-11-30 13:41 | ED GU-Male ---
General Chief Complaint: -Male Stated Complaint: LOW BACK PAIN Nursing Triage Note: PATIENT HERE FOR COMPLAINTS OF LEFT FLANK PAIN X2 MONTHS. HE STATES IT IS WORSE RECENTLY WITH PAIN 7/10. HE STATES IT FEELS LIKE A KIDNEY STONE. Source: patient Exam Limitations: no limitations History of Present Illness Date Seen by Provider: Nov 30, 2017 Time Seen by Provider: 13:38 Initial Comments To ER with pain over the left sacroiliac region. He was seen here by me in August and diagnosed with a left punctate renal calculi. He was then seen here back in September or October with left lower quadrant abdominal pain. It was suspected that the stone may be moving so he was treated empirically. He comes back today stating the pain has never gone away, it stays localized in the left low back. Does not radiate down either leg. No fevers or chills. He states that he's been urinating frequently today and this seems to intensify the pain. He formerly received injections in his low back for bulging disc from Dr. Fuller[facility] pain management but has not done so for years. Timing/Duration: constant Severity/Quality: moderate Location: left flank Radiation: none Activities at Onset: none Prior Genitourinary Problems: recent trauma Associated Symptoms: dysuria Allergies and Home Medications Allergies Coded Allergies: No Known Drug Allergies (Unverified , 08/02/17) Patient Home Medication List Home Medication List Reviewed: Yes Review of Systems Constitutional: see HPI EENTM: see HPI Respiratory: no symptoms reported Cardiovascular: no symptoms reported Genitourinary: see HPI, flank pain Musculoskeletal: no symptoms reported Skin: no symptoms reported Psychiatric/Neurological: No Symptoms Reported Past Sjqjwtv-Pogbft-Qgvlue Hx Patient Social History Alcohol Use: Denies Use 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) Drug of Choice: MARIJUANA Smoking Status: Never a Smoker 2nd Hand Smoke Exposure: No Recent Foreign Travel: No Contact w/Someone Who Travel: No Recent Infectious Disease Expo: No Recent Hopitalizations: No Physical Abuse: No Sexual Abuse: No Immunizations Up To Date Tetanus Booster (TDap): More than 5yrs Seasonal Allergies Seasonal Allergies: No Past Medical History Surgeries: Yes (KIDNEY STONES; LEFT KNEE SCOPE, GALLBLADDER ?) Appendectomy, Orthopedic Respiratory: No Cardiac: No Neurological: No Reproductive Disorders: No Sexually Transmitted Disease: No HIV/AIDS: No Genitourinary: Yes Kidney Stones Gastrointestinal: Yes (BLOOD IN STOOLS) Gastroesophageal Reflux, Ulcer Musculoskeletal: Yes (TORN MENISCUS-LEFT KNEE SCOPE) Back Injury Endocrine: No HEENT: No Loss of Vision: Denies Hearing Impairment: Denies Cancer: No Did You Recieve Any Treatments: No Psychosocial: No Nursing Suicide Risk Score: 0 Integumentary: No Blood Disorders: No Adverse Reaction/Blood Tranf: No Family Medical History Family history: Arthritis G8 SISTER (SEVERE BACK PAIN) Family history: Cardiovascular disease 19 FATHER (PACEMAKER; FROM CARDIAC ISSUES) Family history: Diabetes mellitus 19 FATHER 19 MOTHER G8 BROTHER G8 SISTER Heart Disease, Diabetes Physical Exam Vital Signs Vital Signs - First Documented 11/30/17 13:19 Temp 97.8 Pulse 98 Resp 20 B/P (MAP) 133/100 (111) Pulse Ox 99 Capillary Refill : Less Than 3 Seconds Height, Weight, BMI Height: 6'3.00" Weight: 230lbs. 0oz. [id number]; 29.4 BMI Method:Stated General Appearance: WD/WN, no apparent distress HEENT: PERRL/EOMI, normal ENT inspection Neck: non-tender, full range of motion Respiratory: no respiratory distress, no accessory muscle use Gastrointestinal: normal bowel sounds, non tender Extremities: normal range of motion, non-tender Neurologic/Psychiatric: alert, normal mood/affect, oriented x 3 Skin: normal color, warm/dry Progress/Results/Core Measures Suspected Sepsis Recent Fever Within 48 Hours: No Infection Criteria Present: None New/Unexplained Altered Menta: No Sepsis Screen: No Definite Risk SIRS Temperature:97.8 Pulse: 98 Respiratory Rate: 20 Laboratory Tests 11/30/17 13:35: White Blood Count 7.5 Blood Pressure 133 /100 Mean: 111 Laboratory Tests 11/30/17 13:35: Creatinine 1.16, Platelet Count 195 Results/Orders Lab Results Laboratory Tests Test 11/30/17 13:30 11/30/17 13:35 Range/Units Urine Color YELLOW Urine Clarity CLEAR Urine pH 6 5-9 Urine Specific [place] 1.025 H 1.016-1.022 Urine Protein NEGATIVE NEGATIVE Urine Glucose (UA) NEGATIVE NEGATIVE Urine Ketones NEGATIVE NEGATIVE Urine Nitrite NEGATIVE NEGATIVE Urine Bilirubin NEGATIVE NEGATIVE Urine Urobilinogen 1 NORMAL MG/DL Urine Leukocyte Esterase NEGATIVE NEGATIVE Urine RBC (Auto) NEGATIVE NEGATIVE Urine RBC NONE /HPF Urine WBC 0-2 /HPF Urine Squamous Epithelial Cells 0-2 /HPF Urine Crystals NONE /LPF Urine Bacteria TRACE /HPF Urine Casts NONE /LPF Urine Mucus SMALL H /LPF Urine Culture Indicated NO White Blood Count 7.5 4.3-11.0 10^3/uL Red Blood Count 4.96 4.35-5.85 10^6/uL Hemoglobin 14.8 13.3-17.7 G/DL Hematocrit 43 40-54 % Mean Corpuscular Volume 88 80-99 FL Mean Corpuscular Hemoglobin 30 25-34 PG Mean Corpuscular Hemoglobin Concent 34 32-36 G/DL Red Cell Distribution Width 13.2 10.0-14.5 % Platelet Count 195 130-400 10^3/uL Mean Platelet Volume 12.4 H 7.4-10.4 FL Neutrophils (%) (Auto) 51 42-75 % Lymphocytes (%) (Auto) 37 12-44 % Monocytes (%) (Auto) 7 0-12 % Eosinophils (%) (Auto) 3 0-10 % Basophils (%) (Auto) 2 0-10 % Neutrophils # (Auto) 3.8 1.8-7.8 X 10^3 Lymphocytes # (Auto) 2.8 1.0-4.0 X 10^3 Monocytes # (Auto) 0.5 0.0-1.0 X 10^3 Eosinophils # (Auto) 0.3 0.0-0.3 10^3/uL Basophils # (Auto) 0.1 0.0-0.1 10^3/uL Sodium Level 139 135-145 MMOL/L Potassium Level 4.0 3.6-5.0 MMOL/L Chloride Level 106 98-107 MMOL/L Carbon Dioxide Level 26 21-32 MMOL/L Anion Gap 7 5-14 MMOL/L Blood Urea Nitrogen 17 7-18 MG/DL Creatinine 1.16 0.60-1.30 MG/DL Estimat Glomerular Filtration Rate > 60 BUN/Creatinine Ratio 15 Glucose Level 86 70-105 MG/DL Calcium Level 9.6 8.5-10.1 MG/DL My Orders Orders - ARTHUR HILL APRN Ua Culture If Indicated (11/30/17 13:27) Iv He[place]ock-Insert (Order) (11/30/17 13:27) Cbc With Automated Diff (11/30/17 13:27) Basic Metabolic Panel (11/30/17 13:27) Ketorolac Injection (Toradol Injection) (11/30/17 13:30) Abdomen/Kub 1[place] (11/30/17 13:38) Medications Given in ED Current Medications Medications Dose Ordered Sig/Krissy Route Start Time Stop Time Status Last Admin Dose Admin Ketorolac Tromethamine 30 mg ONCE ONCE IVP 11/30/17 13:30 11/30/17 13:31 DC 11/30/17 13:42 30 MG Vital Signs/I&O 11/30/17 13:19 Temp 97.8 Pulse 98 Resp 20 B/P (MAP) 133/100 (111) Pulse Ox 99 Capillary Refill : Less Than 3 Seconds Blood Pressure Mean: 111 Departure Impression Primary Impression: Flank pain, acute Additional Impression: Sacroiliac joint pain Disposition: 01 HOME, SELF-CARE Condition: Stable Departure-Patient Inst. Decision time for Depature: 14:15 Referrals: CHRIS EUCEDA MD (PCP/Family) Primary Care Physician Patient Instructions: Sacroiliac Joint Pain Add. Discharge Instructions: 1. Follow-up with Dr. Euceda this week or next week for recheck 2. Medication as directed 3. Scripts Methylprednisolone (Medrol) 4 Mg Tab.ds.pk 4 MG PO UD, #1 PKG Prov: ARTHUR HILL APRN 11/30/17 Work/School Note: Work Release Form Date Seen in the Emergency Department: Nov 30, 2017 Return to Work: Dec 02, 2017 Images Torso/Trunk 1 - Other-See Progress Note Copy Copies To 1: CHRIS EUCEDA MD, PETER J APRN Nov 30, 2017 13:41
[2017-11-30 13:45] LABS: BASOPHILS # (AUTO) 0.1 10^3/uL (0.0-0.1); BASOPHILS % (AUTO) 2 % (0-10); EOSINOPHILS # (AUTO) 0.3 10^3/uL (0.0-0.3); EOSINOPHILS % (AUTO) 3 % (0-10); HEMATOCRIT 43 % (40-54); HEMOGLOBIN 14.8 G/DL (13.3-17.7); LYMPHOCYTES # (AUTO) 2.8 X 10^3 (1.0-4.0); LYMPHOCYTES % (AUTO) 37 % (12-44); MEAN CORPUSCULAR HEMOGLOBIN 30 PG (25-34); MEAN CORPUSCULAR HGB CONC 34 G/DL (32-36); MEAN CORPUSCULAR VOLUME 88 FL (80-99); MEAN PLATELET VOLUME 12.4 FL (7.4-10.4); MONOCYTES # (AUTO) 0.5 X 10^3 (0.0-1.0); MONOCYTES % (AUTO) 7 % (0-12); NEUTROPHILS # (AUTO) 3.8 X 10^3 (1.8-7.8); NEUTROPHILS % (AUTO) 51 % (42-75); PLATELET COUNT 195 10^3/uL (130-400); RED BLOOD COUNT 4.96 10^6/uL (4.35-5.85); RED CELL DISTRIBUTION WIDTH 13.2 % (10.0-14.5); WHITE BLOOD COUNT 7.5 10^3/uL (4.3-11.0)
[2017-11-30 13:46] LABS: BILIRUBIN,URINE NEGATIVE (NEGATIVE); CLARITY,URINE CLEAR; COLOR,URINE YELLOW; GLUCOSE, URINE (UA) NEGATIVE (NEGATIVE); KETONES,URINE NEGATIVE (NEGATIVE); LEUKOCYTE ESTERASE ,URINE NEGATIVE (NEGATIVE); NITRITE,URINE NEGATIVE (NEGATIVE); PH,URINE 6 (5-9); PROTEIN,URINE NEGATIVE (NEGATIVE); UROBILINOGEN,URINE 1 MG/DL (NORMAL)
--- NOTE | 2017-11-30 13:57 | Diagnostic Imaging Report ---
INDICATION: Lower abdominal pain. TIME OF EXAM: 2:13 PM FINDINGS: Bowel gas pattern appears nonobstructed. No pathologic calcifications are seen. No acute bony abnormality is seen. IMPRESSION: No acute abnormality is detected. Dictated by: Dictated on workstation # [id number]
[2017-11-30 14:09] LABS: WBC,URINE 0-2 /HPF
[2017-11-30 14:10] LABS: BACTERIA,URINE TRACE /HPF; SQUAMOUS EPITHELIAL CELL,UR 0-2 /HPF
[2017-11-30 14:11] LABS: BUN/CREATININE RATIO 15; CALCIUM 9.6 MG/DL (8.5-10.1); CARBON DIOXIDE 26 MMOL/L (21-32); CHLORIDE 106 MMOL/L (98-107); CREATININE SERUM 1.16 MG/DL (0.60-1.30); GFR ESTIMATED > 60; GLUCOSE 86 MG/DL (70-105); SODIUM 139 MMOL/L (135-145)
[2017-11-30] MEDS ORDERED: METH4TAB PO (14:16)
[2017-11-30 14:18] VITALS: BP 133/100
--- OUTSIDE RECORDS SUMMARY | 2017-12-01 11:23 | XMS REPORT | Continuity of Care Document ---
Author Author [facility] of [facility] of [facility] Address Unknown Phone Unavailable Allergies Active Description Code Type Severity Reaction Onset Reported/Identified Relationship to Patient Clinical Status Yes No Known Drug Allergies [id number] Drug Allergy Unknown N/A 08/02/2017 Medications There is no data. Problems Date Dx Coded Attending Type Code [...] 604.90 ORCHITIS AND EPIDIDYMITIS UNSPECIFIED 11/23/2010 ANGELA RETAIL SERVICE REPRESENTATIVE, BLAYNE R 257.9 UNSPECIFIED TESTICULAR DYSFUNCTION 11/23/2010 ANGELA RETAIL SERVICE REPRESENTATIVE, BLAYNE R 604.90 ORCHITIS AND EPIDIDYMITIS UNSPECIFIED 11/23/2010 ANGELA RETAIL SERVICE REPRESENTATIVE, BLAYNE R 257.9 UNSPECIFIED TESTICULAR DYSFUNCTION 11/23/2010 ANGELA RETAIL SERVICE REPRESENTATIVE, BLAYNE R 604.90 ORCHITIS AND EPIDIDYMITIS UNSPECIFIED 11/23/2010 LLOYD RETAIL SERVICE REPRESENTATIVE, CHAYA S 257.9 UNSPECIFIED TESTICULAR DYSFUNCTION 11/23/2010 LLOYD RETAIL SERVICE REPRESENTATIVE, CHAYA S 604.90 ORCHITIS AND EPIDIDYMITIS UNSPECIFIED 11/23/2010 KIRILL LUNDY MD 257.9 UNSPECIFIED TESTICULAR DYSFUNCTION 11/23/2010 KIRILL LUNDY MD 604.90 ORCHITIS AND EPIDIDYMITIS UNSPECIFIED 08/30/2011 477.9 RHINITIS 08/30/2011 786.52 CHEST WALL PAIN 08/30/2011 477.9 RHINITIS 08/30/2011 786.52 CHEST WALL PAIN 08/30/2011 ANGELA RETAIL SERVICE REPRESENTATIVE, BLAYNE R 477.9 RHINITIS 08/30/2011 ANGELA RETAIL SERVICE REPRESENTATIVE, BLAYNE R 786.52 CHEST WALL PAIN 08/30/2011 ANGELA RETAIL SERVICE REPRESENTATIVE, BLAYNE R 477.9 RHINITIS 08/30/2011 ANGELA RETAIL SERVICE REPRESENTATIVE, BLAYNE R 786.52 CHEST WALL PAIN 08/30/2011 LLOYD REYES, CHAYA S 477.9 RHINITIS 08/30/2011 LLOYD REYES, CHAYA S 786.52 CHEST WALL PAIN 08/30/2011 KIRILL LUNDY MD 477.9 RHINITIS 08/30/2011 KIRILL LUNDY MD 786.52 CHEST WALL PAIN 05/23/2012 461.9 SINUSITIS ACUTE 05/23/2012 786.50 CHEST PAIN 05/23/2012 461.9 SINUSITIS ACUTE 05/23/2012 786.50 CHEST PAIN 05/23/2012 ANGELA RETAIL SERVICE REPRESENTATIVE, BLAYNE R 461.9 SINUSITIS ACUTE 05/23/2012 ANGELA RETAIL SERVICE REPRESENTATIVE, BLAYNE R 786.50 CHEST PAIN 05/23/2012 ANGELA RETAIL SERVICE REPRESENTATIVE, BLAYNE R 461.9 SINUSITIS ACUTE 05/23/2012 ANGELA RETAIL SERVICE REPRESENTATIVE, BLAYNE R 786.50 CHEST PAIN 05/23/2012 LLOYD REYES CHAYA S 461.9 SINUSITIS ACUTE 05/23/2012 LLOYD RETAIL SERVICE REPRESENTATIVE, CHAYA S 786.50 CHEST PAIN 05/23/2012 KIRILL LUNDY MD 461.9 SINUSITIS ACUTE 05/23/2012 KIRILL LUNDY MD 786.50 CHEST PAIN 07/31/2012 786.2 cough 07/31/2012 789.09 groin ( inguinal) pain left side 07/31/2012 ANGELA REYES, BLAYNE R 786.2 cough 07/31/2012 ANGELA REYES, BLAYNE R 789.09 groin (inguinal) pain left side 07/31/2012 ANGELA REYES, BLAYNE R 786.2 cough 07/31/2012 ANGELA REYES, BLAYNE R 789.09 groin (inguinal) pain left side 07/31/2012 KEVEN DESAI APRNA S 786.2 cough 07/31/2012 LLOYD REYES CHAYA S 789.09 groin (inguinal) pain left side 07/31/2012 KIRILL LUNDY MD 786.2 COUGH 07/31/2012 KIRILL LUNDY MD 789.09 GROIN (INGUINAL) PAIN LEFT SIDE 04/18/2013 ARTHUR HILL APRN Ot 724.2 LUMBAGO 04/18/2013 ARTHUR HILL APRN Ot 724.4 LUMBOSACRAL NEURITIS NOS 04/25/2013 ANGELA REYES BLAYNE R 724.2 LUMBAGO/ LOW BACK PAIN 04/25/2013 ANGELA REYES BLAYNE R 724.2 LUMBAGO/ LOW BACK PAIN 04/25/2013 CHAYA DESAI APRN S 724.2 LUMBAGO/ LOW BACK PAIN 04/25/2013 KIRILL LUNDY MD 724.2 LUMBAGO/ LOW BACK PAIN 05/08/2013 ANGELA REYES BLAYNE R 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 05/08/2013 RENEE MILLER APRNINA R 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 05/08/2013 CHAYA DESAI APRN S 722.2 DISPLACEMENT OF INTERVERTEBRAL DISC SITE [...] 724.5 BACKACHE NOS 08/27/2013 BLAYNE MILLER APRN 729.5 PAIN IN LIMB 08/27/2013 CHAYA DESAI APRN 729.5 PAIN IN LIMB 08/27/2013 KIRILL LUNDY MD 729.5 PAIN IN LIMB 09/04/2013 CHAYA DESAI APRN 724.4 BACK PAIN WITH RADIATION 09/04/2013 KIRILL LUNDY MD 724.4 BACK PAIN WITH RADIATION 09/11/2013 QUANG CONTRERAS Ot 276.51 DEHYDRATION 09/11/2013 QUANG CONTRERAS Ot 592.1 CALCULUS OF URETER 09/11/2013 QUANG CONTRERAS Ot 789.09 ABDOMINAL PAIN, OTHER SPECIFIED SITE 09/17/2013 YANDEL SYKES, AGUDEA Mosqueda Ot 592.1 CALCULUS OF URETER 01/13/2014 CUONG FROST MD Ot 721.3 LUMBOSACRAL SPONDYLOSIS 01/13/2014 CUONG FROST MD Ot 722.52 LUMB/LUMBOSAC DISC DEGEN 01/13/2014 CUONG FROST MD Ot 729.1 MYALGIA AND MYOSITIS NOS 01/13/2014 CUONG FROST MD Ot V58.69 [facility] MED,LT,CURRENT USE 04/10/2014 ARTHUR HILL APRN Ot 724.5 BACKACHE NOS 04/10/2014 ARTHUR HILL APRN Ot 789.09 ABDOMINAL PAIN, OTHER SPECIFIED SITE 04/14/2014 Ot 530.81 04/14/2014 Ot 787.3 04/14/2014 Ot 789.06 04/14/2014 QUANG CONTRERAS Ot 592.1 04/14/2014 BLAYNE MILLER RETAIL SERVICE REPRESENTATIVE Ot 724.2 04/14/2014 BLAYNE MILLER APRN Ot 729.5 04/14/2014 REYNA SYKES CHRIS L Ot 722.10 04/14/2014 CHRIS ORELLANA MD Ot 722.52 04/21/2014 Ot 530.81 04/21/2014 Ot 787.3 04/21/2014 Ot 789.06 04/21/2014 QUANG CONTRERAS Ot 592.1 04/21/2014 BLAYNE MILLER RETAIL SERVICE REPRESENTATIVE Ot 724.2 04/21/2014 BLAYNE MILLER R RETAIL SERVICE REPRESENTATIVE Ot 729.5 04/21/2014 CHRIS ORELLANA MD Ot [...] 592.1 CALCULUS OF URETER 09/30/2015 BLAYNE MILLER RETAIL SERVICE REPRESENTATIVE Ot 724.2 LUMBAGO 09/30/2015 BLAYNE MILLER RETAIL SERVICE REPRESENTATIVE Ot 729.5 PAIN IN LIMB 09/30/2015 CHRIS [...] V72.84 EXAM PRE-OPERATIVE NOS 09/30/2015 ARTHUR HILL APRN Ot L23.7 ALLERGIC CONTACT DERMATITIS DUE TO PLANT 10/07/2015 ARTHUR HILL RETAIL SERVICE REPRESENTATIVE Ot L23.7 ALLERGIC CONTACT DERMATITIS DUE TO PLANT 12/17/2015 QUANG CONTRERAS Ot 592.1 CALCULUS OF URETER 12/17/2015 BLAYNE MILLER RETAIL SERVICE REPRESENTATIVE Ot 724.2 LUMBAGO 12/17/2015 BLAYNE MILLER RETAIL SERVICE REPRESENTATIVE Ot 729.5 PAIN IN LIMB 12/17/2015 REYNA SYKES, CHRIS Christopher Ot 722.10 LUMBAR DISC DISPLACEMENT 12/17/2015 CHRIS ORELLANA MD Ot 722.52 LUMB/LUMBOSAC DISC DEGEN 12/17/2015 CUONG FROST MD Ot 722.52 LUMB/LUMBOSAC DISC DEGEN 12/17/2015 CUONG FROST MD Ot V64.3 NO PROC FOR REASONS NEC 12/17/2015 CUONG FROST MD Ot 721.3 LUMBOSACRAL SPONDYLOSIS 12/17/2015 CUONG FROST MD Ot 722.52 LUMB/LUMBOSAC DISC DEGEN 12/17/2015 UCONG FROST MD Ot 729.1 MYALGIA AND MYOSITIS NOS 12/17/2015 CUONG FROST MD Ot V58.69 OTH MED,LT,CURRENT USE 12/17/2015 REHANA SULLIVAN MD Ot V72.84 EXAM PRE-OPERATIVE NOS 12/18/2015 LOLLY HARO TELE GROUT SEWER LINE REPAIRER Ot I86.1 SCROTAL VARICES 12/18/2015 LOLLY HARO Ot N43.3 HYDROCELE, UNSPECIFIED 12/20/2015 QUANG CONTRERAS Ot B35.4 TINEA CORPORIS 12/20/2015 QUANG CONTRERAS Ot B35.6 TINEA CRURIS 12/20/2015 QUANG CONTRERAS Ot R21 RASH AND OTHER NONSPECIFIC SKIN ERUPTION 01/12/2016 LOLLY HARO TELE GROUT SEWER LINE REPAIRER Ot I86.1 SCROTAL VARICES 01/12/2016 LOLLY HARO TELE GROUT SEWER LINE REPAIRER Ot N43.3 HYDROCELE, UNSPECIFIED 05/01/2016 ARTHUR HILL RETAIL SERVICE REPRESENTATIVE Ot J02.9 ACUTE PHARYNGITIS, UNSPECIFIED 05/01/2016 ARTHUR HILL RETAIL SERVICE REPRESENTATIVE Ot R51 HEADACHE 05/01/2016 QUANG CONTRERAS Ot 592.1 CALCULUS OF URETER 05/01/2016 BLAYNE MILLER RETAIL SERVICE REPRESENTATIVE Ot 724.2 LUMBAGO 05/01/2016 BLAYNE MILLER RETAIL SERVICE REPRESENTATIVE Ot 729.5 PAIN IN LIMB 05/01/2016 REYNA SYKES, CHRIS Christopher Ot 722.10 LUMBAR DISC DISPLACEMENT 05/01/2016 REYNA SYKES, CHRIS Christopher Ot 722.52 LUMB/LUMBOSAC DISC DEGEN 05/01/2016 CUONG FROST MD Ot 722.52 LUMB/LUMBOSAC DISC DEGEN 05/01/2016 CUONG FROST MD Ot V64.3 NO PROC FOR REASONS NEC 05/01/2016 CUONG FROST MD Ot 721.3 LUMBOSACRAL SPONDYLOSIS 05/01/2016 CUONG FROST MD Ot 722.52 LUMB/LUMBOSAC DISC DEGEN 05/01/2016 CUONG FROST MD Ot 729.1 MYALGIA AND MYOSITIS NOS 05/01/2016 CUONG FROST MD Ot V58.69 OT MED,LT,CURRENT USE 05/01/2016 NATE SYKES, REHANA Hill Ot V72.84 EXAM PRE-OPERATIVE NOS 05/01/2016 LOLLY HARO TELE GROUT SEWER LINE REPAIRER Ot I86.1 SCROTAL VARICES 05/01/2016 LOLLY HARO TELE GROUT SEWER LINE REPAIRER Ot N43.3 HYDROCELE, UNSPECIFIED 05/03/2016 ARTHUR HILL RETAIL SERVICE REPRESENTATIVE Ot J02.9 ACUTE PHARYNGITIS, UNSPECIFIED 05/03/2016 ARTHUR HILL APRN Ot R51 HEADACHE 06/03/2016 CUONG FROST MD Ot M51.16 INTERVERTEBRAL DISC DISORDERS W RADICULO 06/03/2016 CUONG FROST MD, Ot M51.36 OTHER INTERVERTEBRAL DISC DEGENERATION, 06/13/2016 CUONG FROST MD, Ot M51.16 INTERVERTEBRAL DISC DISORDERS W RADICULO 06/13/2016 CUONG FROST MD, Ot M51.36 OTHER INTERVERTEBRAL DISC DEGENERATION, 07/19/2016 QUANG CONTRERAS Ot 592.1 CALCULUS OF URETER 07/19/2016 BLAYNE MILLER RETAIL SERVICE REPRESENTATIVE Ot 724.2 LUMBAGO 07/19/2016 BLAYNE IMLLER RETAIL SERVICE REPRESENTATIVE Ot 729.5 PAIN IN LIMB 07/19/2016 REYNA SYKES, CHRIS Christopher Ot 722.10 LUMBAR DISC DISPLACEMENT 07/19/2016 CHRIS [...] NOS 07/19/2016 CUONG FROST MD Ot V58.69 OTH MED,LT,CURRENT USE 07/19/2016 NATE SYKES, REHANA Hill Ot V72.84 EXAM PRE-OPERATIVE NOS 07/19/2016 LOLLY HARO TELE GROUT SEWER LINE REPAIRER Ot I86.1 SCROTAL VARICES 07/19/2016 LOLLY HARO TELE GROUT SEWER LINE REPAIRER Ot N43.3 HYDROCELE, UNSPECIFIED 07/19/2016 DWAYNE SYKES, ARCHIE Lovett Ot N20.0 CALCULUS OF KIDNEY 07/19/2016 ARCHIE RICE MD Ot R10.32 LEFT LOWER QUADRANT PAIN 09/21/2016 JOHNATHON SYKES, HTA Troy Ot I88.9 NONSPECIFIC LYMPHADENITIS, UNSPECIFIED 09/21/2016 JOHNATHON SYKES, THA Troy Ot J02.9 ACUTE PHARYNGITIS, UNSPECIFIED 09/21/2016 THA DIEGO MD Ot J06.9 ACUTE UPPER RESPIRATORY INFECTION, UNSPE 09/23/2016 JOHNATHON SYKES, THA Troy Ot I88.9 NONSPECIFIC LYMPHADENITIS, UNSPECIFIED 09/23/2016 THA DIEGO MD Ot J02.9 ACUTE PHARYNGITIS, UNSPECIFIED 09/23/2016 THA DIEGO MD Ot J06.9 ACUTE UPPER RESPIRATORY INFECTION, UNSPE 09/28/2016 JOHNATHON SYKES, THA Troy Ot I88.9 NONSPECIFIC LYMPHADENITIS, UNSPECIFIED 09/28/2016 JOHNATHON SYKES, THA Troy Ot J02.9 ACUTE PHARYNGITIS, UNSPECIFIED 09/28/2016 JOHNATHON SYKES, THA Troy Ot J06.9 ACUTE UPPER RESPIRATORY INFECTION, UNSPE 01/17/2017 QUANG CONTRERAS Ot 592.1 CALCULUS OF URETER 01/17/2017 BLAYNE MILLER RETAIL SERVICE REPRESENTATIVE Ot 724.2 LUMBAGO 01/17/2017 BLAYNE MILLER RETAIL SERVICE REPRESENTATIVE Ot 729.5 PAIN IN LIMB 01/17/2017 REYNA SYKES, CHRIS Christopher Ot 722.10 LUMBAR DISC DISPLACEMENT 01/17/2017 CHRIS ORELLANA MD Ot 722.52 LUMB/LUMBOSAC DISC DEGEN 01/17/2017 CUONG FROST MD Ot 722.52 LUMB/LUMBOSAC DISC DEGEN 01/17/2017 CUONG FROST MD Ot V64.3 NO PROC FOR REASONS NEC 01/17/2017 CUONG FROST MD Ot 721.3 LUMBOSACRAL SPONDYLOSIS 01/17/2017 CUONG FROST MD Ot 722.52 LUMB/LUMBOSAC DISC DEGEN 01/17/2017 CUONG FROST MD Ot 729.1 MYALGIA AND MYOSITIS NOS 01/17/2017 CUONG FROST MD Ot V58.69 OTH MED,LT,CURRENT USE 01/17/2017 NATE SYKES, REHANA Hill Ot V72.84 EXAM PRE-OPERATIVE NOS 01/17/2017 LOLLY HARO TELE GROUT SEWER LINE REPAIRER Ot I86.1 SCROTAL VARICES 01/17/2017 LOLLY HARO TELE GROUT SEWER LINE REPAIRER Ot N43.3 HYDROCELE, UNSPECIFIED 01/17/2017 ABRAN OSBORNE DO Ot K21.9 GASTRO-ESOPHAGEAL REFLUX DISEASE WITHOUT 01/17/2017 ABRAN OSBORNE DO Ot R07.9 CHEST PAIN, UNSPECIFIED 01/17/2017 ABRAN OSBORNE DO Ot Z82.49 FAMILY HX OF ISCHEM HEART DIS AND OTH DI 01/17/2017 ABRAN OSBORNE DO Ot Z87.442 PERSONAL HISTORY OF URINARY CALCULI 01/17/2017 ABRAN OSBORNE DO Ot Z87.828 PERSONAL HISTORY OF OTH (HEALED) PHYSICA 01/17/2017 ABRAN OSBORNE DO Ot Z90.49 ACQUIRED ABSENCE OF OTHER SPECIFIED PART 01/19/2017 ABRAN OSBORNE DO Ot K21.9 GASTRO-ESOPHAGEAL REFLUX DISEASE WITHOUT 01/19/2017 ABRAN OSBORNE DO Ot R07.9 CHEST PAIN, UNSPECIFIED 01/19/2017 ABRAN OSBORNE DO Ot Z82.49 FAMILY HX OF ISCHEM HEART DIS AND OTH DI 01/19/2017 ABRAN OSBORNE DO Ot Z87.442 PERSONAL HISTORY OF URINARY CALCULI 01/19/2017 ABRAN OSBORNE DO Ot Z87.828 PERSONAL HISTORY OF OTH (HEALED) PHYSICA 01/19/2017 ABRAN OSBORNE DO Ot Z90.49 ACQUIRED ABSENCE OF OTHER SPECIFIED PART 07/26/2017 QUANG CONTRERAS Ot 592.1 CALCULUS OF URETER 07/26/2017 BLAYNE MILLER RETAIL SERVICE REPRESENTATIVE Ot 724.2 LUMBAGO 07/26/2017 BLAYNE MILLER RETAIL SERVICE REPRESENTATIVE Ot 729.5 PAIN IN LIMB 07/26/2017 REYNA SYKES, CHRIS Christopher Ot 722.10 LUMBAR DISC DISPLACEMENT 07/26/2017 CHRIS ORELLANA MD Ot 722.52 LUMB/LUMBOSAC DISC DEGEN 07/26/2017 CUONG FROST MD Ot 722.52 LUMB/LUMBOSAC DISC DEGEN 07/26/2017 CUONG FROST MD Ot V64.3 NO PROC FOR REASONS NEC 07/26/2017 CUONG FROST MD Ot 721.3 LUMBOSACRAL SPONDYLOSIS 07/26/2017 CUONG FROST MD Ot 722.52 LUMB/LUMBOSAC DISC DEGEN 07/26/2017 CUONG FROST MD Ot 729.1 MYALGIA AND MYOSITIS NOS 07/26/2017 CUONG FROST MD Ot V58.69 OTH MED,LT,CURRENT USE 07/26/2017 NATE SYKES, REHANA Hill Ot V72.84 EXAM PRE-OPERATIVE NOS 07/26/2017 LOLLY HARO TELE GROUT SEWER LINE REPAIRER Ot I86.1 SCROTAL VARICES 07/26/2017 HARO, LOLLY S TELE GROUT SEWER LINE REPAIRER Ot N43.3 HYDROCELE, UNSPECIFIED 08/02/2017 CASSANDRA YOUNG MD Ot K21.9 GASTRO-ESOPHAGEAL REFLUX DISEASE WITHOUT 08/02/2017 CASSANDRA YOUNG MD Ot K92.1 MELENA 08/02/2017 CASSANDRA YOUNG MD Ot Z01.818 ENCOUNTER FOR OTHER PREPROCEDURAL EXAMIN 08/02/2017 CASSANDRA YOUNG MD Ot Z80.0 FAMILY HISTORY OF MALIGNANT NEOPLASM OF 08/02/2017 CASSANDRA YOUNG MD Ot Z86.010 PERSONAL HISTORY OF COLONIC POLYPS 08/03/2017 CASSANDRA YOUNG MD Ot K21.9 GASTRO-ESOPHAGEAL REFLUX DISEASE WITHOUT 08/03/2017 CASSANDRA YOUNG MD Ot K92.1 MELENA 08/03/2017 CASSANDRA YOUNG MD Ot Z01.818 ENCOUNTER FOR OTHER PREPROCEDURAL EXAMIN 08/03/2017 CASSANDRA YOUNG MD Ot Z80.0 FAMILY HISTORY OF MALIGNANT NEOPLASM OF 08/03/2017 CASSANDRA YOUNG MD Ot Z86.010 PERSONAL HISTORY OF COLONIC POLYPS 08/08/2017 CASSANDRA YOUNG MD Ot K21.9 GASTRO-ESOPHAGEAL REFLUX DISEASE WITHOUT 08/08/2017 CASSANDRA YOUNG MD Ot K92.1 MELENA 08/08/2017 CASSANDRA YOUNG MD Ot Z01.818 ENCOUNTER FOR OTHER PREPROCEDURAL EXAMIN 08/08/2017 CASSANDRA YOUNG MD Ot Z80.0 FAMILY HISTORY OF MALIGNANT NEOPLASM OF 08/08/2017 CASSANDRA YOUNG MD Ot Z86.010 PERSONAL HISTORY OF COLONIC POLYPS 08/09/2017 QUANG CONTRERAS Ot 592.1 CALCULUS OF URETER 08/09/2017 BLAYNE MILLER RETAIL SERVICE REPRESENTATIVE Ot 724.2 LUMBAGO 08/09/2017 BLAYNE MILLER RETAIL SERVICE REPRESENTATIVE Ot 729.5 PAIN IN LIMB 08/09/2017 CHRIS ORELLANA MD Ot 722.10 LUMBAR DISC DISPLACEMENT 08/09/2017 CHRIS ORELLANA MD Ot 722.52 LUMB/LUMBOSAC DISC DEGEN 08/09/2017 CUONG FROST MD Ot 722.52 LUMB/LUMBOSAC DISC DEGEN 08/09/2017 CUONG FROST MD Ot V64.3 NO PROC FOR REASONS NEC 08/09/2017 CUONG FROST MD Ot 721.3 LUMBOSACRAL SPONDYLOSIS 08/09/2017 CUONG FROST MD Ot 722.52 LUMB/LUMBOSAC DISC DEGEN 08/09/2017 CUONG FROST MD Ot 729.1 MYALGIA AND MYOSITIS NOS 08/09/2017 CUONG FROST MD Ot V58.69 OTH MED,LT,CURRENT USE 08/09/2017 REHANA SULLIVAN MD Ot V72.84 EXAM PRE-OPERATIVE NOS 08/09/2017 LOLLY HARO TELE GROUT SEWER LINE REPAIRER Ot I86.1 SCROTAL VARICES 08/09/2017 LOLLY HARO TELE GROUT SEWER LINE REPAIRER Ot N43.3 HYDROCELE, UNSPECIFIED 08/09/2017 CASSANDRA YOUNG MD Ot K21.0 GASTRO-ESOPHAGEAL REFLUX DISEASE WITH ES 08/09/2017 CASSANDRA YOUNG MD Ot K29.70 GASTRITIS, UNSPECIFIED, WITHOUT BLEEDING 08/09/2017 CASSANDRA YOUNG MD Ot K64.1 SECOND DEGREE HEMORRHOIDS 08/09/2017 CASSANDRA YOUNG MD Ot Z80.0 FAMILY HISTORY OF MALIGNANT NEOPLASM OF 08/09/2017 CASSANDRA YOUNG MD Ot Z86.010 PERSONAL HISTORY OF COLONIC POLYPS 08/10/2017 CASSANDRA YOUNG MD Ot K21.0 GASTRO-ESOPHAGEAL REFLUX DISEASE WITH ES 08/10/2017 CASSANDRA YOUNG MD Ot K29.70 GASTRITIS, UNSPECIFIED, WITHOUT BLEEDING 08/10/2017 CASSANDRA YOUNG MD Ot K64.1 SECOND DEGREE HEMORRHOIDS 08/10/2017 CASSANDRA YOUNG MD Ot Z80.0 FAMILY HISTORY OF MALIGNANT NEOPLASM OF 08/10/2017 CASSANDRA YOUNG MD Ot Z86.010 PERSONAL HISTORY OF COLONIC POLYPS 09/08/2017 QUANG CONTRERAS Ot 592.1 CALCULUS OF URETER 09/08/2017 BLAYNE MILLER RETAIL SERVICE REPRESENTATIVE Ot 724.2 LUMBAGO 09/08/2017 BLAYNE MILLER RETAIL SERVICE REPRESENTATIVE Ot 729.5 PAIN IN LIMB 09/08/2017 CHRIS ORELLANA MD Ot 722.10 LUMBAR DISC DISPLACEMENT 09/08/2017 CHRIS ORELLANA MD Ot 722.52 LUMB/LUMBOSAC DISC DEGEN 09/08/2017 CUONG FROST MD Ot 722.52 LUMB/LUMBOSAC DISC DEGEN 09/08/2017 CUONG FROST MD Ot V64.3 NO PROC FOR REASONS NEC 09/08/2017 CUONG FROST MD Ot 721.3 LUMBOSACRAL SPONDYLOSIS 09/08/2017 CUONG FROST MD Ot 722.52 LUMB/LUMBOSAC DISC DEGEN 09/08/2017 CUONG FROST MD Ot 729.1 MYALGIA AND MYOSITIS NOS 09/08/2017 CUONG FROST MD Ot V58.69 OTH MED,LT,CURRENT USE 09/08/2017 NATE SYKES, REHANA S Ot V72.84 EXAM PRE-OPERATIVE NOS 09/08/2017 LOLLY HARO TELE GROUT SEWER LINE REPAIRER Ot I86.1 SCROTAL VARICES 09/08/2017 LOLLY HARO TELE GROUT SEWER LINE REPAIRER Ot N43.3 HYDROCELE, UNSPECIFIED 09/08/2017 ARTHUR HILL APRN Ot H92.02 OTALGIA, LEFT EAR 09/08/2017 ARTHUR HILL RETAIL SERVICE REPRESENTATIVE Ot K21.9 GASTRO-ESOPHAGEAL REFLUX DISEASE WITHOUT 09/08/2017 ARTHUR HILL RETAIL SERVICE REPRESENTATIVE Ot R10.9 UNSPECIFIED ABDOMINAL PAIN 09/08/2017 ARTHUR HILL APRN Ot Z87.442 PERSONAL HISTORY OF URINARY CALCULI 09/08/2017 ARTHUR HILL APRN Ot Z90.49 ACQUIRED ABSENCE OF OTHER SPECIFIED PART 09/11/2017 ARTHUR HILL APRN Ot H92.02 OTALGIA, LEFT EAR 09/11/2017 ARTHUR HILL APRN Ot K21.9 GASTRO-ESOPHAGEAL REFLUX DISEASE WITHOUT 09/11/2017 ARTUHR HILL RETAIL SERVICE REPRESENTATIVE Ot R10.9 UNSPECIFIED ABDOMINAL PAIN 09/11/2017 ARTHUR HILL RETAIL SERVICE REPRESENTATIVE Ot Z87.442 PERSONAL HISTORY OF URINARY CALCULI 09/11/2017 ARTHUR HILL RETAIL SERVICE REPRESENTATIVE Ot Z90.49 ACQUIRED ABSENCE OF OTHER SPECIFIED PART 09/21/2017 THA DIEGO MD Ot F12.10 CANNABIS ABUSE, UNCOMPLICATED 09/21/2017 THA DIEGO MD Ot K21.9 GASTRO-ESOPHAGEAL REFLUX DISEASE WITHOUT 09/21/2017 THA DIEGO MD Ot N20.0 CALCULUS OF KIDNEY 09/21/2017 THA DIEGO MD Ot R10.32 LEFT LOWER QUADRANT PAIN 09/21/2017 THA DIEGO MD Ot Z82.49 FAMILY HX OF ISCHEM HEART DIS AND OTH DI 09/21/2017 THA DIEGO MD Ot Z87.19 PERSONAL HISTORY OF OTHER DISEASES OF TH 09/21/2017 THA DIEGO MD Ot Z87.442 PERSONAL HISTORY OF URINARY CALCULI 09/21/2017 THA DIEGO MD Ot Z90.89 ACQUIRED ABSENCE OF OTHER ORGANS 09/25/2017 THA DIEGO MD Ot F12.10 CANNABIS ABUSE, UNCOMPLICATED 09/25/2017 THA DIEGO MD Ot K21.9 GASTRO-ESOPHAGEAL REFLUX DISEASE WITHOUT 09/25/2017 THA DIEGO MD Ot N20.0 CALCULUS OF KIDNEY 09/25/2017 THA DIEGO MD Ot R10.32 LEFT LOWER QUADRANT PAIN 09/25/2017 THA DIEGO MD Ot Z82.49 FAMILY HX OF ISCHEM HEART DIS AND OTH DI 09/25/2017 THA DIEGO MD Ot Z87.19 PERSONAL HISTORY OF OTHER DISEASES OF TH 09/25/2017 THA DIEGO MD Ot Z87.442 PERSONAL HISTORY OF URINARY CALCULI 09/25/2017 THA DIEGO MD Ot Z90.89 ACQUIRED ABSENCE OF OTHER ORGANS Procedures Code Description [place] [id number] EKG, TRACING (IN-HOUSE) 05/23/2012 66161 MRI SPINE (LUMBAR) W/O CONTRAST 05/01/2013 22456 US VENOUS DOPPLER (DVT EVAL ) 08/27/2013 Results Test Result Range Complete blood count (CBC) with automated white blood cell (WBC) differential - 07/19/16 13:10 Blood leukocytes automated count (number/volume) 6.9 10*3/uL 4.3-11.0 Blood erythrocytes automated count (number/volume) 5.00 10*6/uL 4.35-5.85 Venous blood hemoglobin measurement (mass/volume) 15.1 [...] Automated blood platelet mean volume measurement 12.2 [foz_us] 7.4-10.4 Automated blood neutrophils/100 leukocytes 48 % [...] Serum or plasma sodium measurement (moles/volume) 138 mmol/L 135-145 Serum or plasma potassium measurement (moles/volume) 4.0 mmol/L 3.6-5.0 Serum or plasma chloride measurement (moles/volume) 106 mmol/L 98-107 Carbon dioxide 24 mmol/L 21-32 Serum or plasma anion gap determination (moles/volume) 8 mmol/L 5-14 Serum or plasma urea nitrogen measurement (mass/volume) 14 mg/dL 7-18 Serum or plasma creatinine measurement (mass/volume) 1.06 mg/dL 0.60-1.30 Serum or plasma urea nitrogen/creatinine mass [...] Urine pH measurement by test strip 6 5-9 Specific gravity of urine by test strip 1.025 1.016- 1.022 Urine protein assay by test strip, semi-quantitative [...] urinalysis with reflex to culture NO NRG Streptococcus pyogenes antigen detection - 09/21/16 07:28 Streptococcus pyogenes antigen detection NEGATIVE NEGATIVE Bacterial throat culture - 09/21/16 07:28 Bacterial throat culture NBS NRG Complete blood count (CBC) with automated white blood cell (WBC) differential - 01/17/17 18:50 Blood leukocytes automated count (number/volume) 7.8 10*3/uL 4.3-11.0 Blood erythrocytes automated count (number/volume) 4.89 10*6/uL 4.35-5.85 Venous blood hemoglobin measurement (mass/volume) 14.8 g/dL 13.3-17.7 Blood hematocrit (volume fraction) 43 % 40-54 Automated erythrocyte mean corpuscular volume 88 [foz_us] 80-99 Automated erythrocyte mean corpuscular hemoglobin (mass per erythrocyte) 30 pg 25-34 Automated erythrocyte mean corpuscular hemoglobin concentration measurement ( mass/volume) 35 g/dL 32-36 Automated erythrocyte distribution width ratio 13.1 % 10.0-14.5 Automated blood platelet count (count/volume) 195 10*3/uL 130-400 Automated blood platelet mean volume measurement 12.5 [foz_us] 7.4-10.4 Automated blood neutrophils/100 leukocytes 46 % 42-75 Automated blood lymphocytes/100 leukocytes 42 % 12-44 Blood monocytes/100 leukocytes 7 % 0-12 Automated blood eosinophils/100 leukocytes 4 % 0-10 Automated blood basophils/100 leukocytes 2 % 0-10 Blood neutrophils automated count (number/volume) 3.5 10*3 1.8-7.8 Blood lymphocytes automated count (number/volume) 3.2 10*3 1.0-4.0 Blood monocytes automated count (number/volume) 0.5 10*3 0.0-1.0 Automated eosinophil count 0.3 10*3/uL 0.0-0.3 Automated blood basophil count (count/volume) 0.1 10*3/uL 0.0-0.1 PT panel in platelet poor plasma by coagulation assay - 01/17/17 18:50 Prothrombin time (PT) in platelet poor plasma by coagulation assay 12.4 s 12.2-14.7 INR in platelet poor plasma or blood by coagulation assay 0.9 0.8-1.4 Activated partial thromboplastin time (aPTT) in platelet poor plasma bycoagulation assay - 01/17/17 18:50 Activated partial thromboplastin time (aPTT) in platelet poor plasma bycoagulation assay 29 s 24-35 Comprehensive metabolic panel - 01/17/17 18:50 Serum or plasma sodium measurement (moles/volume) 140 mmol/L 135-145 Serum or plasma potassium measurement (moles/volume) 4.0 mmol/L 3.6-5.0 Serum or plasma chloride measurement (moles/volume) 107 mmol/L 98-107 Carbon dioxide 24 mmol/L 21-32 Serum or plasma anion gap determination (moles/volume) 9 mmol/L 5-14 Serum or plasma urea nitrogen measurement (mass/volume) 16 mg/dL 7-18 Serum or plasma creatinine measurement (mass/volume) 1.12 mg/dL 0.60-1.30 Serum or plasma urea nitrogen/creatinine mass ratio 14 NRG Serum or plasma creatinine measurement with calculation of estimated glomerular filtration rate > NRG Serum or plasma glucose measurement (mass/volume) 84 mg/dL 70-105 Serum or plasma calcium measurement (mass/volume) 9.3 mg/dL 8.5-10.1 Serum or plasma total bilirubin measurement (mass/volume) 0.3 mg/dL 0.1-1.0 Serum or plasma alkaline phosphatase measurement (enzymatic activity/volume) 58 U/L 40-136 Serum or plasma aspartate aminotransferase measurement (enzymatic activity/ volume) 43 U/L 5-34 Serum or plasma alanine aminotransferase measurement (enzymatic activity/volume ) 44 U/L 0-55 Serum or plasma protein measurement (mass/volume) 7.5 g/dL 6.4-8.2 Serum or plasma albumin measurement (mass/volume) 4.4 g/dL 3.2-4.5 Magnesium - 01/17/17 18:50 Magnesium 2.1 mg/dL 1.8-2.4 Serum or plasma creatine kinase measurement (enzymatic activity/volume) - 01/17 18:50 Serum or plasma creatine kinase measurement (enzymatic activity/volume) 200 U/L 30-200 Serum or plasma creatine kinase MB measurement (enzymatic activity/volume) - 18:50 Serum or plasma creatine kinase MB measurement (enzymatic activity/volume) 2.0 ng/mL <6.6 Serum or plasma troponin i.cardiac measurement (mass/volume) - 01/17/17 18:50 Serum or plasma troponin i.cardiac measurement (mass/volume) < ng/ mL <0.30 Serum or plasma amylase measurement (enzymatic activity/volume) - 01/17/17 18: 50 Serum or plasma amylase measurement (enzymatic activity/volume) 56 U /L 25-125 Lipase - 01/17/17 18:50 Lipase 40 U/L 8-78 Serum or plasma lithium measurement (moles/volume) - 01/17/17 18:50 BNP level < pg/mL <100.0 Complete blood count (CBC) with automated white blood cell (WBC) differential - 09/08/17 14:16 Blood leukocytes automated count (number/volume) 5.6 10*3/uL 4.3-11.0 Blood erythrocytes automated count (number/volume) 5.15 10*6/uL 4.35-5.85 Venous blood hemoglobin measurement (mass/volume) 15.5 g/dL 13.3-17.7 Blood hematocrit (volume fraction) 45 % 40-54 Automated erythrocyte mean corpuscular volume 87 [foz_us] 80-99 Automated erythrocyte mean corpuscular hemoglobin (mass per erythrocyte) 30 pg 25-34 Automated erythrocyte mean corpuscular hemoglobin concentration measurement ( mass/volume) 34 g/dL 32-36 Automated erythrocyte distribution width ratio 13.5 % 10.0-14.5 Automated blood platelet count (count/volume) 161 10*3/uL 130-400 Automated blood platelet mean volume measurement 12.5 [foz_us] 7.4-10.4 Automated blood neutrophils/100 leukocytes 46 % 42-75 Automated blood lymphocytes/100 leukocytes 37 % 12-44 Blood monocytes/100 leukocytes 11 % 0-12 Automated blood eosinophils/100 leukocytes 4 % 0-10 Automated blood basophils/100 leukocytes 2 % 0-10 Blood neutrophils automated count (number/volume) 2.6 10*3 1.8-7.8 Blood lymphocytes automated count (number/volume) 2.1 10*3 1.0-4.0 Blood monocytes automated count (number/volume) 0.6 10*3 0.0-1.0 Automated eosinophil count 0.2 10*3/uL 0.0-0.3 Automated blood basophil count (count/volume) 0.1 10*3/uL 0.0-0.1 Complete urinalysis with reflex to culture - 09/08/17 14:16 Urine color determination YELLOW NRG Urine clarity determination CLEAR NRG Urine pH measurement by test strip 5 5-9 Specific gravity of urine by test strip 1.030 1.016- 1.022 Urine protein assay by test strip, semi-quantitative [...] detection in urine sediment by light microscopy 2-5 NRG Crystals detection in urine sediment by light microscopy NONE NRG Casts detection in urine sediment by light microscopy NONE NRG Mucus detection in urine sediment by light microscopy MODERATE NRG Complete urinalysis with reflex to culture NO NRG Whole blood basic metabolic panel - 09/08/17 14:16 Serum or plasma sodium measurement (moles/volume) 141 mmol/L 135-145 Serum or plasma potassium measurement (moles/volume) 4.4 mmol/L 3.6-5.0 Serum or plasma chloride measurement (moles/volume) 107 mmol/L 98-107 Carbon dioxide 25 mmol/L 21-32 Serum or plasma anion gap determination (moles/volume) 9 mmol/L 5-14 Serum or plasma urea nitrogen measurement (mass/volume) 15 mg/dL 7-18 Serum or plasma creatinine measurement (mass/volume) 1.14 mg/dL 0.60-1.30 Serum or plasma urea nitrogen/creatinine mass ratio 13 NRG Serum or plasma creatinine measurement with calculation of estimated glomerular filtration rate > NRG Serum or plasma glucose measurement (mass/volume) 81 mg/dL 70-105 Serum or plasma calcium measurement (mass/volume) 9.9 mg/dL 8.5-10.1 Complete urinalysis with reflex to culture - 09/21/17 10:00 Urine color determination YELLOW NRG Urine clarity determination SLIGHTLY CLOUDY NRG Urine pH measurement by test strip 5 5-9 Specific gravity of urine by test strip 1.025 1.016- 1.022 Urine protein assay by test strip, semi-quantitative [...] count by microscopy (number/high power field ) RARE NRG Bacteria detection in urine sediment by light microscopy TRACE NRG Crystals detection in urine sediment by light microscopy NONE NRG Casts detection in urine sediment by light microscopy NONE NRG Mucus detection in urine sediment by light microscopy SMALL NRG Complete urinalysis with reflex to culture NO NRG Complete blood count (CBC) with automated white blood cell (WBC) differential - 09/21/17 10:50 Blood leukocytes automated count (number/volume) 7.3 10*3/uL 4.3-11.0 Blood erythrocytes automated count (number/volume) 4.97 10*6/uL 4.35-5.85 Venous blood hemoglobin measurement (mass/volume) 14.9 g/dL 13.3-17.7 Blood hematocrit (volume fraction) 43 % 40-54 Automated erythrocyte mean corpuscular volume 87 [foz_us] 80-99 Automated erythrocyte mean corpuscular hemoglobin (mass per erythrocyte) 30 pg 25-34 Automated erythrocyte mean corpuscular hemoglobin concentration measurement ( mass/volume) 35 g/dL 32-36 Automated erythrocyte distribution width ratio 13.4 % 10.0-14.5 Automated blood platelet count (count/volume) 184 10*3/uL 130-400 Automated blood platelet mean volume measurement 12.0 [foz_us] 7.4-10.4 Automated blood neutrophils/100 leukocytes 45 % 42-75 Automated blood lymphocytes/100 leukocytes 44 % 12-44 Blood monocytes/100 leukocytes 8 % 0-12 Automated blood eosinophils/100 leukocytes 3 % 0-10 Automated blood basophils/100 leukocytes 1 % 0-10 Blood neutrophils automated count (number/volume) 3.3 10*3 1.8-7.8 Blood lymphocytes automated count (number/volume) 3.2 10*3 1.0-4.0 Blood monocytes automated count (number/volume) 0.6 10*3 0.0-1.0 Automated eosinophil count 0.2 10*3/uL 0.0-0.3 Automated blood basophil count (count/volume) 0.1 10*3/uL 0.0-0.1 Comprehensive metabolic panel - 09/21/17 10:50 Serum or plasma sodium measurement (moles/volume) 140 mmol/L 135-145 Serum or plasma potassium measurement (moles/volume) 4.3 mmol/L 3.6-5.0 Serum or plasma chloride measurement (moles/volume) 107 mmol/L 98-107 Carbon dioxide 22 mmol/L 21-32 Serum or plasma anion gap determination (moles/volume) 11 mmol/L 5-14 Serum or plasma urea nitrogen measurement (mass/volume) 14 mg/dL 7-18 Serum or plasma creatinine measurement (mass/volume) 1.02 mg/dL 0.60-1.30 Serum or plasma urea nitrogen/creatinine mass ratio 14 NRG Serum or plasma creatinine measurement with calculation of estimated glomerular filtration rate > NRG Serum or plasma glucose measurement (mass/volume) 83 mg/dL 70-105 Serum or plasma calcium measurement (mass/volume) 9.2 mg/dL 8.5-10.1 Serum or plasma total bilirubin measurement (mass/volume) 1.0 mg/dL 0.1-1.0 Serum or plasma alkaline phosphatase measurement (enzymatic activity/volume) 56 U/L 40-136 Serum or plasma aspartate aminotransferase measurement (enzymatic activity/ volume) 55 U/L 5-34 Serum or plasma alanine aminotransferase measurement (enzymatic activity/volume ) 88 U/L 0-55 Serum or plasma protein measurement (mass/volume) 6.8 g/dL 6.4-8.2 Serum or plasma albumin measurement (mass/volume) 4.3 g/dL 3.2-4.5 Encounters ACCT No. Visit Date/Time Discharge Status Pt. Type Provider Facility Loc./Unit Complaint [id number] 10/24/2013 00:48:00 10/24/2013 23:59:59 CLS Outpatient KIRILL LUNDY MD [id number] 09/04/2013 13:55:00 09/04/2013 23:59:59 CLS Outpatient CHAYA DESAI APRN [id number] 08/27/2013 17:26:00 08/27/2013 23:59:59 CLS Outpatient BLAYNE MILLER APRN [id number] 04/25/2013 08:59:00 04/25/2013 23:59:59 CLS Outpatient BLAYNE MILLER APRN [id number] 05/23/2012 15:25:00 05/23/2012 23:59:59 CLS Outpatient [id number] 07/31/2012 14:36:00 Document Registration [id number] 09/21/2017 09:45:00 09/21/2017 13:06:00 DIS Emergency JOHNATHON SYKES, THA Troy [facility] ER LOWER ABD PAIN LT SIDE [id number] 09/08/2017 14:01:00 09/08/2017 15:24:00 DIS Emergency ARTHUR HILL APRN [facility] ER EAR INFECTION, POSS KIDNEY STONE [id number] 08/09/2017 09:52:00 08/09/2017 14:25:00 DIS Outpatient CASSANDRA YOUNG MD [facility] ENDO BLOOD IN STOOLS/HX POLYPS/REFLUX/FAM HX COLON CA [id number] 08/02/2017 05:39:00 08/02/2017 14:31:00 DIS Outpatient CASSANDRA YOUNG MD [facility] PREOP COLONOSCOPY/EGD [id number] 01/17/2017 18:44:00 01/17/2017 20:19:00 DIS Emergency ABRAN OSBORNE DO [facility] ER CHEST PAIN [id number] 09/21/2016 07:16:00 09/21/2016 08:01:00 DIS Emergency JOHNATHON SYKES, THA Troy [facility] ER DIFFICULTY SWALLOWING, EARACHE [id number] 07/19/2016 12:38:00 07/19/2016 15:11:00 DIS Emergency DWAYNE SYKES, ARCHIE Lovett [facility] ER LEFT FLANK PAIN [id number] 06/03/2016 06:42:00 06/03/2016 07:40:00 DIS Outpatient CUONG FROST MD [facility] CARD DISC DISORDER [id number] 05/01/2016 10:57:00 05/01/2016 12:25:00 DIS Emergency ARTHUR HILL RETAIL SERVICE REPRESENTATIVE [facility] ER HEADACHE/SORE THROAT [id number] 12/20/2015 13:39:00 12/20/2015 15:25:00 DIS Emergency QUANG CONTRERAS [facility] ER POSS ALLERGIC REACTION [id number] 12/17/2015 09:03:00 12/17/2015 23:59:59 CLS Outpatient LOLLY HARO [facility] RAD LT TESTICULAR SWELLING [id number] 09/30/2015 14:46:00 09/30/2015 14:55:00 DIS Emergency ARTHUR HILL RETAIL SERVICE REPRESENTATIVE [facility] ER RASH ON FEET [id number] 05/21/2015 22:37:00 05/22/2015 01:46:00 DIS Emergency DWAYNE SYKES, ARCHIE Lovett [facility] ER CHEST PAIN [id number] 09/25/2014 07:39:00 09/25/2014 11:10:00 DIS Outpatient NATE SYKES, REHANA Hill [facility] SDC RECTAL BLEEDING [id number] 09/24/2014 06:17:00 09/24/2014 23:59:59 CLS Outpatient REHANA SULLIVAN MD [facility] PREOP RECTAL BLEEDING [id number] 04/28/2014 12:57:00 04/28/2014 23:59:59 CLS Outpatient CUONG FROST MD [facility] CARD DDD [id number] 04/21/2014 13:18:00 04/21/2014 23:59:59 CLS Outpatient CUONG FROST MD [facility] CARD DDD [id number] 04/10/2014 16:41:00 04/10/2014 18:11:00 DIS Emergency ARTHUR HILL RETAIL SERVICE REPRESENTATIVE [facility] ER BACK PAIN [id number] 01/13/2014 12:26:00 01/13/2014 13:30:00 DIS Outpatient CUONG FROST MD [facility] CARD DDD-LUMBAR [id number] 11/26/2013 14:35:00 11/26/2013 23:59:59 CLS Outpatient CHRIS ORELLANA MD [facility] RAD LUMBAR DISC BULGE, WEAKNESS ON LEFT SIDE [id number] 09/15/2013 15:59:00 09/17/2013 14:41:00 DIS Outpatient YANDEL SYKES, AGUEDA Mosqueda [facility] RIGHT URETEROVESICAL JUNCTION STONE [id number] 09/12/2013 07:58:00 09/12/2013 23:59:59 CLS Outpatient QUANG CONTRERAS [facility] RAD URETEROLITHIASIS [id number] 09/11/2013 14:51:00 09/11/2013 17:50:00 DIS Emergency QUANG CONTRERAS [facility] ER LOWER ABD PAIN/ VOMITING [id number] 08/27/2013 18:47:00 08/27/2013 23:59:59 CLS Outpatient BLAYNE MILLER RETAIL SERVICE REPRESENTATIVE [facility] RAD L LEG PAIN [id number] 08/25/2013 20:42:00 08/25/2013 21:33:00 DIS Emergency ARTHUR HILL RETAIL SERVICE REPRESENTATIVE [facility] ER BUTTOCK/LEG PAIN [id number] 08/11/2013 19:07:00 08/11/2013 22:54:00 DIS Emergency QUANG CONTRERAS [facility] ER BACK PAIN [id number] 05/01/2013 14:52:00 05/01/2013 23:59:59 CLS Outpatient BLAYNE MILLER APRN [facility] RAD LUMBAGO, LOW BACK PAIN [id number] 04/18/2013 12:26:00 04/18/2013 13:34:00 DIS Emergency ARTHUR HILL RETAIL SERVICE REPRESENTATIVE [facility] ER BACK PAIN [id number] 11/15/2012 13:19:00 11/15/2012 23:59:59 CLS Outpatient [id number] 05/26/2015 14:12:00 Document Registration [id number] 11/21/2010 16:38:00 Document Registration [id number] 03/25/2010 07:44:00 Document Registration [id number] 03/22/2010 10:06:00 Document Registration [id number] 11/05/2009 13:08:00 Document Registration
== END 2017-11-30 14:21 | disposition home or self-care (01) ==
LOC: EDUNIT# 13:12 → ER 13:13
DX: M53.3 Sacrococcygeal disorders, not elsewhere classified (principal); R10.32 Left lower quadrant pain; K21.9 Gastro-esophageal reflux disease without esophagitis; F12.10 Cannabis abuse, uncomplicated; Z82.49 Family history of ischemic heart disease and other diseases of the circulatory system; Z87.19 Personal history of other diseases of the digestive system; Z90.89 Acquired absence of other organs; Z87.442 Personal history of urinary calculi
CPT/HCPCS: 36415; 74018; 80048; 81000; 85025

== ENCOUNTER → 2018-02-23 | Emergency (ER) | payer MEDICAID ==
[~2018-02-23] VITALS: Ht 190.5 cm; Wt 106.6 kg
[~2018-02-23] MED LIST changes: +KCL 10 MEQ TAB (MICRO K) PO ONE; +LORazepam INJ 2 MG/ML (ATIVAN) VIAL IVP ONE; +METH4TAB PO; +NS IV 1000 ML 1,000 ML IV ONE; +NYST1POW22 MC
[2018-02-23 23:07] VITALS: BP 130/85
[2018-02-23 23:26] LABS: BASOPHILS # (AUTO) 0.1 10^3/uL (0.0-0.1); BASOPHILS % (AUTO) 1 % (0-10); EOSINOPHILS # (AUTO) 0.3 10^3/uL (0.0-0.3); EOSINOPHILS % (AUTO) 3 % (0-10); HEMATOCRIT 46 % (40-54); HEMOGLOBIN 15.7 G/DL (13.3-17.7); LYMPHOCYTES # (AUTO) 6.3 X 10^3 (1.0-4.0); LYMPHOCYTES % (AUTO) 59 % (12-44); MEAN CORPUSCULAR HEMOGLOBIN 30 PG (25-34); MEAN CORPUSCULAR HGB CONC 34 G/DL (32-36); MEAN CORPUSCULAR VOLUME 88 FL (80-99); MEAN PLATELET VOLUME 12.2 FL (7.4-10.4); MONOCYTES # (AUTO) 0.8 X 10^3 (0.0-1.0); MONOCYTES % (AUTO) 7 % (0-12); NEUTROPHILS # (AUTO) 3.1 X 10^3 (1.8-7.8); NEUTROPHILS % (AUTO) 29 % (42-75); PLATELET COUNT 206 10^3/uL (130-400); RED CELL DISTRIBUTION WIDTH 13.2 % (10.0-14.5); WHITE BLOOD COUNT 10.6 10^3/uL (4.3-11.0)
[2018-02-23 23:57] LABS: ALANINE AMINOTRANSFERASE 151 U/L (0-55); ALKALINE PHOSPHATASE 75 U/L (40-136); BILIRUBIN,TOTAL 0.5 MG/DL (0.1-1.0); BUN/CREATININE RATIO 12; CALCIUM 9.9 MG/DL (8.5-10.1); CARBON DIOXIDE 22 MMOL/L (21-32); CHLORIDE 105 MMOL/L (98-107); CREATININE SERUM 1.21 MG/DL (0.60-1.30); GFR ESTIMATED > 60; GLUCOSE 102 MG/DL (70-105); MAGNESIUM 2.1 MG/DL (1.8-2.4); POTASSIUM 3.2 MMOL/L (3.6-5.0); SODIUM 141 MMOL/L (135-145); TOTAL PROTEIN 7.9 GM/DL (6.4-8.2)
[2018-02-24 00:17] LABS: TSH (THYROID ANALYZER) 1.24 UIU/ML (0.35-4.94)
[2018-02-24 03:32] LABS: AMPHETAMINE SCREEN, URINE NEGATIVE (NEGATIVE); BARBITURATE SCREEN URINE NEGATIVE (NEGATIVE); BENZODIAZEPINES SCREEN URINE NEGATIVE (NEGATIVE); CANNABINOID SCREEN, URINE POSITIVE (NEGATIVE); COCAINE SCREEN URINE NEGATIVE (NEGATIVE); METHADONE STAT NEGATIVE (NEGATIVE); METHAMPHETAMINE SCREEN URINE S NEGATIVE (NEGATIVE); OPIATE SCREEN URINE NEGATIVE (NEGATIVE); OXYCODONE STAT NEGATIVE (NEGATIVE); PROPOXYPHENE STAT NEGATIVE (NEGATIVE); TRICYCLIC ANTIDEPRESSANTS SCRE NEGATIVE (NEGATIVE)
--- NOTE | 2018-02-24 03:48 | ED General ---
General Chief Complaint: Dizziness/Syncope Stated Complaint: DIZZINESS Nursing Triage Note: PT ARRIVES TO ED ROOM #4 VIA W/C WITH C/O OF SYNCOPAL EPISODE, WEAKNESS, NUMBNESS TINGLING IN BUE, DISORIENTATION, AND DIFFICULTY WALKING. PT STATED THAT THE EPISODE STARTED 25MIN PRIOR AFTER HE TRIED TO GET UP FROM THE COUCH. PT STATED THAT HE HAD TO LEAN OVER THE COUCH FOR BALANCE. PT SPEECH IS SLURRED. PT HAS DIFFICULTY TO GET UP FROM THE CHAIR. Nursing Sepsis Screen: No Definite Risk Source of Information: Patient Exam Limitations: No Limitations History of Present Illness Date Seen by Provider: Feb 23, 2018 Time Seen by Provider: 23:08 Initial Comments This patient presents to the emergency room with complaints of sudden onset of dizziness, shaking, nausea, dry heaving, slurring of words, and bilateral finger numbness. He denies any chest pain or shortness of breath. He admits to smoking marijuana tonight but denies any other drug or alcohol use. He denies ever having another episode similar to this. Patient is already improving by the time of arrival. Allergies and Home Medications Allergies Coded Allergies: No Known Drug Allergies (Unverified , 08/02/17) Home Medications Methylprednisolone 4 Mg Tab.ds.pk, 4 MG PO UD Prescribed by: ARTHUR HILL on 11/30/17 1416 Patient Home Medication List Home Medication List Reviewed: Yes Review of Systems Review of Systems Constitutional: see HPI EENTM: no symptoms reported Respiratory: no symptoms reported Cardiovascular: see HPI Gastrointestinal: see HPI Genitourinary: no symptoms reported Musculoskeletal: no symptoms reported Skin: no symptoms reported Psychiatric/Neurological: See HPI Hematologic/Lymphatic: No Symptoms Reported Immunological/Allergic: no symptoms reported Past Zxrghyu-Jzrvpq-Dcdekz Hx Past Med/Social Hx: Reviewed and Corrections made Patient Social History Alcohol Use: Denies Use Recreational Drug Use: Yes (PT STATES THAT HE SMOKES MARIJUANA EVERYDAY,HX: METH 6 YEARS AGO) Drug of Choice: MARIJUANA 2nd Hand Smoke Exposure: No Recent Foreign Travel: No Contact w/Someone Who Travel: No Recent Infectious Disease Expo: No Recent Hopitalizations: No Physical Abuse: No Sexual Abuse: No Mistreated: No Fear: No Immunizations Up To Date Tetanus Booster (TDap): More than 5yrs Seasonal Allergies Seasonal Allergies: No Past Medical History Surgeries: Yes (KIDNEY STONES; LEFT KNEE SCOPE, GALLBLADDER ?) Appendectomy, Orthopedic Respiratory: No Cardiac: No Neurological: No Reproductive Disorders: No Sexually Transmitted Disease: No HIV/AIDS: No Genitourinary: Yes Kidney Stones Gastrointestinal: Yes (BLOOD IN STOOLS) Gastroesophageal Reflux, Ulcer Musculoskeletal: Yes (TORN MENISCUS-LEFT KNEE SCOPE, sciatic nerve pain) Degenerate Disk Disease, Back Injury Endocrine: No HEENT: No Loss of Vision: Denies Hearing Impairment: Denies Cancer: No Did You Recieve Any Treatments: No Psychosocial: No Integumentary: No Blood Disorders: No Adverse Reaction/Blood Tranf: No Family Medical History Reviewed Nursing Family Hx Family history: Arthritis G8 SISTER (SEVERE BACK PAIN) Family history: Cardiovascular disease 19 FATHER (PACEMAKER; FROM CARDIAC ISSUES) Family history: Diabetes mellitus 19 FATHER 19 MOTHER G8 BROTHER G8 SISTER Heart Disease, Diabetes Physical Exam Vital Signs Vital Signs - First Documented 02/23/18 23:07 Temp 98.1 Pulse 96 Resp 18 B/P (MAP) 130/85 (100) Pulse Ox 99 Capillary Refill : Less Than 3 Seconds Height, Weight, BMI Height: 6'3.00" Weight: 235lbs. 0oz. 106.222063fm; 29.4 BMI Method:Stated General Appearance: WD/WN, Mild Distress HEENT: PERRL/EOMI, Normal ENT Inspection, Pharynx Normal Neck: Normal Inspection Respiratory: Lungs Clear, Normal Breath Sounds, No Accessory Muscle Use, No Respiratory Distress Cardiovascular: Regular Rate, Rhythm, No Edema, No Murmur Gastrointestinal: Normal Bowel Sounds, Non Tender, Soft Extremity: Normal Inspection, No Pedal Edema Neurologic/Psychiatric: Alert, Oriented x3, No Motor/Sensory Deficits, rap artist II- XII Norm as Tested, Other (Anxious, poor eye contact) Skin: Normal Color, Warm/Dry Progress/Results/Core Measures Suspected Sepsis Recent Fever Within 48 Hours: Yes Infection Criteria Present: None New/Unexplained Altered Menta: No Sepsis Screen: No Definite Risk SIRS Temperature:98.1 Pulse: 96 Respiratory Rate: 18 Laboratory Tests 02/23/18 23:12: White Blood Count 10.6 Blood Pressure 130 /85 Mean: 100 Laboratory Tests 02/23/18 23:12: Creatinine 1.21, Platelet Count 206, Total Bilirubin 0.5 Results/Orders Lab Results My Orders Medications Given in ED Vital Signs/I&O Capillary Refill : Less Than 3 Seconds Blood Pressure Mean: 100 Progress Note : Progress Note Patient was found to have a mild hypokalemia. He was given oral potassium replacement. Workup was fairly unremarkable aside from mild lab abnormalities. Patient was given Ativan for anxiety. He gradually improved throughout the course of his ER visit. No focal neurologic deficits were identified. He received 2 L of IV normal saline as he was unable to urinate and was tachycardic. Patient did have a high lymphocyte percentage which may indicate he was experiencing symptoms of a viral illness. ECG Initial ECG Impression Date: Feb 24, 2018 Initial ECG Impression Time: 01:26 Initial ECG Rate: 91 Initial ECG Rhythm: Normal Sinus Comment Sinus rhythm with no ST elevation or depression. No abnormal intervals or axis deviation. No significant change from prior. Diagnostic Imaging Diagonstic Imaging: Xray Plain Films/CT/US/NM/MRI: chest Comments Chest x-ray viewed by me. Report not yet available. No acute abnormality appreciated. Departure Impression Primary Impression: Anxiety Additional Impressions: Dizziness Nausea Marijuana use Hypokalemia Disposition: HOME, SELF-CARE Condition: Improved Departure-Patient Inst. Decision time for Depature: 03:46 Referrals: CHRIS ORELLANA MD (PCP/Family) Primary Care Physician Patient Instructions: Hypokalemia Add. Discharge Instructions: Drink plenty of clear liquids. Return to care if you have worsening symptoms. Gradually advance your diet with small quantities of bland food as tolerated. Avoid use of psychotropic substances such as marijuana. Follow-up with your primary care provider soon as possible. All discharge instructions reviewed with patient and/or family. Voiced understanding. THA DIEGO MD Feb 24, 2018 03:48
--- NOTE | 2018-02-24 07:14 | Diagnostic Imaging Report ---
EXAMINATION: Chest radiograph, portable AP view. DATE: February 24, 2018 at 0023 hours. INDICATION: 42-year-old male, dizziness. COMPARISON: January 17, 2017. FINDINGS: Stable overall appearance of the cardiomediastinal silhouette. There is no identified pneumothorax. There is no large pleural effusion. There is no identified focal airspace consolidation. There is a chronic-appearing deformity of the left clavicle. IMPRESSION: 1. No identified acute cardiopulmonary abnormality. Dictated by: Dictated on workstation # [id number]
== END | disposition home or self-care (01) ==
LOC: EDUNIT# 23:02 → ER 23:03
DX: F41.9 Anxiety disorder, unspecified (principal); R42 Dizziness and giddiness; R11.0 Nausea; K21.9 Gastro-esophageal reflux disease without esophagitis; F12.10 Cannabis abuse, uncomplicated; E87.6 Hypokalemia; Z87.442 Personal history of urinary calculi; Z90.89 Acquired absence of other organs; Z87.19 Personal history of other diseases of the digestive system; Z82.49 Family history of ischemic heart disease and other diseases of the circulatory system
CPT/HCPCS: 36415; 71045; 80053; 80320; 83735; 84443; 84484; 85025; 93041

== ENCOUNTER 2018-04-23 14:46 | Emergency (ER) | payer MEDICAID ==
[~2018-04-23] VITALS: Ht 190.5 cm; Wt 104.3 kg
[~2018-04-23 14:46] MED LIST changes: -KCL 10 MEQ TAB (MICRO K) PO ONE; -LORazepam INJ 2 MG/ML (ATIVAN) VIAL IVP ONE; -NS IV 1000 ML 1,000 ML IV ONE
--- OUTSIDE RECORDS SUMMARY | 2018-04-23 15:15 | XMS REPORT | Continuity of Care Document ---
Author Author [facility] Address Unknown Phone Unavailable Allergies Active Description Code Type Severity Reaction Onset Reported/Identified Relationship to Patient Clinical Status Yes No Known Drug Allergies [id number] Drug Allergy Unknown N/A 08/02/2017 Medications There [...] 604.90 ORCHITIS AND EPIDIDYMITIS UNSPECIFIED 11/23/2010 ANGELA TRANSPORT ASSISTANT, LBAYNE R 257.9 UNSPECIFIED TESTICULAR DYSFUNCTION 11/23/2010 ANGELA TRANSPORT ASSISTANT, BLAYNE R 604.90 ORCHITIS AND EPIDIDYMITIS UNSPECIFIED 11/23/2010 ANGELA TRANSPORT ASSISTANT, BLAYNE R 257.9 UNSPECIFIED TESTICULAR DYSFUNCTION 11/23/2010 ANGELA TRANSPORT ASSISTANT, BLAYNE R 604.90 ORCHITIS AND EPIDIDYMITIS UNSPECIFIED 11/23/2010 LLOYD TRANSPORT ASSISTANT, CHAYA S 257.9 UNSPECIFIED TESTICULAR DYSFUNCTION 11/23/2010 LLOYD TRANSPORT ASSISTANT, CHAYA S 604.90 ORCHITIS AND EPIDIDYMITIS UNSPECIFIED 11/23/2010 KIRILL LUNDY MD 257.9 UNSPECIFIED TESTICULAR DYSFUNCTION 11/23/2010 KIRILL LUNDY MD 604.90 ORCHITIS AND EPIDIDYMITIS UNSPECIFIED 08/30/2011 477.9 RHINITIS 08/30/2011 786.52 CHEST WALL PAIN 08/30/2011 477.9 RHINITIS 08/30/2011 786.52 CHEST WALL PAIN 08/30/2011 ANGELA TRANSPORT ASSISTANT, BLAYNE R 477.9 RHINITIS 08/30/2011 ANGELA TRANSPORT ASSISTANT, BLAYNE R 786.52 CHEST WALL PAIN 08/30/2011 ANGELA TRANSPORT ASSISTANT, BLAYNE R 477.9 RHINITIS 08/30/2011 ANGELA TRANSPORT ASSISTANT, BLAYNE R 786.52 CHEST WALL PAIN 08/30/2011 LLOYD REYES, CHAYA S 477.9 RHINITIS 08/30/2011 LLOYD REYES, CHAYA S 786.52 CHEST WALL PAIN 08/30/2011 KIRILL LUNDY MD 477.9 RHINITIS 08/30/2011 KIRILL LUNDY MD 786.52 CHEST WALL PAIN 05/23/2012 461.9 SINUSITIS ACUTE 05/23/2012 786.50 CHEST PAIN 05/23/2012 461.9 SINUSITIS ACUTE 05/23/2012 786.50 CHEST PAIN 05/23/2012 ANGELA TRANSPORT ASSISTANT, BLAYNE R 461.9 SINUSITIS ACUTE 05/23/2012 ANGELA TRANSPORT ASSISTANT, BLAYNE R 786.50 CHEST PAIN 05/23/2012 ANGELA TRANSPORT ASSISTANT, BLAYNE R 461.9 SINUSITIS ACUTE 05/23/2012 ANGELA TRANSPORT ASSISTANT, BLAYNE R 786.50 CHEST PAIN 05/23/2012 LLOYD REYES CHAYA S 461.9 SINUSITIS ACUTE 05/23/2012 LLOYD TRANSPORT ASSISTANT, CHAYA S 786.50 CHEST PAIN 05/23/2012 KIRILL [...] 724.2 LUMBAGO/ LOW BACK PAIN 04/25/2013 KIRILL LNUDY MD 724.2 LUMBAGO/ LOW BACK PAIN 05/08/2013 [...] NOS 01/13/2014 CUONG FROST MD Ot V58.69 [facility] MED,LT,CURRENT USE 04/10/2014 ARTHUR HILL APRN Ot 724.5 BACKACHE NOS 04/10/2014 ARTHUR HILL APRN Ot 789.09 ABDOMINAL PAIN, OTHER SPECIFIED SITE 04/14/2014 Ot 530.81 04/14/2014 Ot 787.3 04/14/2014 Ot 789.06 04/14/2014 QUANG CONTRERAS Ot 592.1 04/14/2014 BLAYNE MILLER TRANSPORT ASSISTANT Ot 724.2 04/14/2014 BLAYNE MILLER APRN Ot 729.5 04/14/2014 REYNA SYKES CHRIS L Ot 722.10 04/14/2014 CHRIS ORELLANA MD Ot 722.52 04/21/2014 Ot 530.81 04/21/2014 Ot 787.3 04/21/2014 Ot 789.06 04/21/2014 QUANG CONTRERAS Ot 592.1 04/21/2014 BLAYNE MILLER TRANSPORT ASSISTANT Ot 724.2 04/21/2014 BLAYNE MILLER R TRANSPORT ASSISTANT Ot 729.5 04/21/2014 CHRIS ORELLANA MD Ot [...] 592.1 CALCULUS OF URETER 09/30/2015 BLAYNE MILLER TRANSPORT ASSISTANT Ot 724.2 LUMBAGO 09/30/2015 BLAYNE MILLER TRANSPORT ASSISTANT Ot 729.5 PAIN IN LIMB 09/30/2015 CHRIS [...] DERMATITIS DUE TO PLANT 10/07/2015 ARTHUR HILL TRANSPORT ASSISTANT Ot L23.7 ALLERGIC CONTACT DERMATITIS DUE TO PLANT 12/17/2015 QUANG CONTRERAS Ot 592.1 CALCULUS OF URETER 12/17/2015 BLAYNE MILLER TRANSPORT ASSISTANT Ot 724.2 LUMBAGO 12/17/2015 BLAYNE MILLER TRANSPORT ASSISTANT Ot 729.5 PAIN IN LIMB 12/17/2015 REYNA [...] V72.84 EXAM PRE-OPERATIVE NOS 12/18/2015 LOLLY HARO MOTOR VEHICLE EMISSIONS INSPECTOR Ot I86.1 SCROTAL VARICES 12/18/2015 LOLLY HARO Ot N43.3 HYDROCELE, UNSPECIFIED 12/20/2015 QUANG CONTRERAS Ot B35.4 TINEA CORPORIS 12/20/2015 QUANG CONTRERAS Ot B35.6 TINEA CRURIS 12/20/2015 QUANG CONTRERAS Ot R21 RASH AND OTHER NONSPECIFIC SKIN ERUPTION 01/12/2016 LOLLY HARO MOTOR VEHICLE EMISSIONS INSPECTOR Ot I86.1 SCROTAL VARICES 01/12/2016 LOLLY HARO MOTOR VEHICLE EMISSIONS INSPECTOR Ot N43.3 HYDROCELE, UNSPECIFIED 05/01/2016 ARTHUR HILL TRANSPORT ASSISTANT Ot J02.9 ACUTE PHARYNGITIS, UNSPECIFIED 05/01/2016 ARTHUR HILL TRANSPORT ASSISTANT Ot R51 HEADACHE 05/01/2016 QUANG CONTRERAS Ot 592.1 CALCULUS OF URETER 05/01/2016 BLAYNE MILLER TRANSPORT ASSISTANT Ot 724.2 LUMBAGO 05/01/2016 BLAYNE MILLER TRANSPORT ASSISTANT Ot 729.5 PAIN IN LIMB 05/01/2016 REYNA [...] V72.84 EXAM PRE-OPERATIVE NOS 05/01/2016 LOLLY HARO MOTOR VEHICLE EMISSIONS INSPECTOR Ot I86.1 SCROTAL VARICES 05/01/2016 LOLLY HARO MOTOR VEHICLE EMISSIONS INSPECTOR Ot N43.3 HYDROCELE, UNSPECIFIED 05/03/2016 ARTHUR HILL TRANSPORT ASSISTANT Ot J02.9 ACUTE PHARYNGITIS, UNSPECIFIED 05/03/2016 ARTHUR [...] 592.1 CALCULUS OF URETER 07/19/2016 BLAYNE MILLER TRANSPORT ASSISTANT Ot 724.2 LUMBAGO 07/19/2016 BLAYNE MILLER TRANSPORT ASSISTANT Ot 729.5 PAIN IN LIMB 07/19/2016 REYNA [...] V72.84 EXAM PRE-OPERATIVE NOS 07/19/2016 LOLLY HARO MOTOR VEHICLE EMISSIONS INSPECTOR Ot I86.1 SCROTAL VARICES 07/19/2016 LOLLY HARO MOTOR VEHICLE EMISSIONS INSPECTOR Ot N43.3 HYDROCELE, UNSPECIFIED 07/19/2016 DWAYNE SYKES, ARCHIE Lovett Ot N20.0 CALCULUS OF KIDNEY 07/19/2016 ARCHIE RICE MD Ot R10.32 LEFT LOWER QUADRANT PAIN 09/21/2016 JOHNATHON SYKES, THA [place] Ot I88.9 NONSPECIFIC LYMPHADENITIS, UNSPECIFIED 09/21/2016 [...] 592.1 CALCULUS OF URETER 01/17/2017 BLAYNE MILLER TRANSPORT ASSISTANT Ot 724.2 LUMBAGO 01/17/2017 BLAYNE MILLER TRANSPORT ASSISTANT Ot 729.5 PAIN IN LIMB 01/17/2017 REYNA [...] Ot V72.84 EXAM PRE-OPERATIVE NOS 01/17/2017 LOLLY HRAO MOTOR VEHICLE EMISSIONS INSPECTOR Ot I86.1 SCROTAL VARICES 01/17/2017 LOLLY HARO MOTOR VEHICLE EMISSIONS INSPECTOR Ot N43.3 HYDROCELE, UNSPECIFIED 01/17/2017 ABRAN OSBORNE [...] 592.1 CALCULUS OF URETER 07/26/2017 BLAYNE MILLER TRANSPORT ASSISTANT Ot 724.2 LUMBAGO 07/26/2017 BLAYNE MILLER TRANSPORT ASSISTANT Ot 729.5 PAIN IN LIMB 07/26/2017 REYNA [...] V72.84 EXAM PRE-OPERATIVE NOS 07/26/2017 LOLLY HARO MOTOR VEHICLE EMISSIONS INSPECTOR Ot I86.1 SCROTAL VARICES 07/26/2017 HARO, LOLLY S MOTOR VEHICLE EMISSIONS INSPECTOR Ot N43.3 HYDROCELE, UNSPECIFIED 08/02/2017 CASSANDRA YOUNG [...] 592.1 CALCULUS OF URETER 08/09/2017 BLAYNE MILLER TRANSPORT ASSISTANT Ot 724.2 LUMBAGO 08/09/2017 BLAYNE MILLER TRANSPORT ASSISTANT Ot 729.5 PAIN IN LIMB 08/09/2017 CHRIS [...] V72.84 EXAM PRE-OPERATIVE NOS 08/09/2017 LOLLY HARO MOTOR VEHICLE EMISSIONS INSPECTOR Ot I86.1 SCROTAL VARICES 08/09/2017 LOLLY HARO MOTOR VEHICLE EMISSIONS INSPECTOR Ot N43.3 HYDROCELE, UNSPECIFIED 08/09/2017 CASSANDRA YOUNG [...] 592.1 CALCULUS OF URETER 09/08/2017 BLAYNE MILLER TRANSPORT ASSISTANT Ot 724.2 LUMBAGO 09/08/2017 BLAYNE MILLER TRANSPORT ASSISTANT Ot 729.5 PAIN IN LIMB 09/08/2017 CHRIS [...] V72.84 EXAM PRE-OPERATIVE NOS 09/08/2017 LOLLY HARO MOTOR VEHICLE EMISSIONS INSPECTOR Ot I86.1 SCROTAL VARICES 09/08/2017 LOLLY HARO MOTOR VEHICLE EMISSIONS INSPECTOR Ot N43.3 HYDROCELE, UNSPECIFIED 09/08/2017 ARTHUR HILL APRN Ot H92.02 OTALGIA, LEFT EAR 09/08/2017 ARTHUR HILL TRANSPORT ASSISTANT Ot K21.9 GASTRO-ESOPHAGEAL REFLUX DISEASE WITHOUT 09/08/2017 ARTHUR HILL TRANSPORT ASSISTANT Ot R10.9 UNSPECIFIED ABDOMINAL PAIN 09/08/2017 ARTHUR HILL APRN Ot Z87.442 PERSONAL HISTORY OF URINARY CALCULI 09/08/2017 ARTHUR HILL APRN Ot Z90.49 ACQUIRED ABSENCE OF OTHER SPECIFIED PART 09/11/2017 ARTHUR HILL APRN Ot H92.02 OTALGIA, LEFT EAR 09/11/2017 ARTHUR HILL APRN Ot K21.9 GASTRO-ESOPHAGEAL REFLUX DISEASE WITHOUT 09/11/2017 ARTHUR HILL TRANSPORT ASSISTANT Ot R10.9 UNSPECIFIED ABDOMINAL PAIN 09/11/2017 ARTHUR HILL TRANSPORT ASSISTANT Ot Z87.442 PERSONAL HISTORY OF URINARY CALCULI 09/11/2017 ARTHUR HILL TRANSPORT ASSISTANT Ot Z90.49 ACQUIRED ABSENCE OF OTHER SPECIFIED [...] PERSONAL HISTORY OF URINARY CALCULI 09/21/2017 THA IDEGO MD Ot Z90.89 ACQUIRED ABSENCE OF OTHER [...] Ot Z90.89 ACQUIRED ABSENCE OF OTHER ORGANS 11/30/2017 Ot F12.10 CANNABIS ABUSE, UNCOMPLICATED 11/30/2017 Ot K21.9 GASTRO- ESOPHAGEAL REFLUX DISEASE WITHOUT 11/30/2017 Ot M53.3 SACROCOCCYGEAL DISORDERS, NOT ELSEWHERE 11/30/2017 Ot R10.32 LEFT LOWER QUADRANT PAIN 11/30/2017 Ot Z82.49 FAMILY HX OF ISCHEM HEART DIS AND OTH DI 11/30/2017 Ot Z87.19 PERSONAL HISTORY OF OTHER DISEASES OF TH 11/30/2017 Ot Z87.442 PERSONAL HISTORY OF URINARY CALCULI 11/30/2017 Ot Z90.89 ACQUIRED ABSENCE OF OTHER ORGANS 12/04/2017 Ot F12.10 CANNABIS ABUSE, UNCOMPLICATED 12/04/2017 Ot K21.9 GASTRO- ESOPHAGEAL REFLUX DISEASE WITHOUT 12/04/2017 Ot M53.3 SACROCOCCYGEAL DISORDERS, NOT ELSEWHERE 12/04/2017 Ot R10.32 LEFT LOWER QUADRANT PAIN 12/04/2017 Ot Z82.49 FAMILY HX OF ISCHEM HEART DIS AND OTH DI 12/04/2017 Ot Z87.19 PERSONAL HISTORY OF OTHER DISEASES OF TH 12/04/2017 Ot Z87.442 PERSONAL HISTORY OF URINARY CALCULI 12/04/2017 Ot Z90.89 ACQUIRED ABSENCE OF OTHER ORGANS 12/08/2017 QUANG CONTRERAS Ot 592.1 CALCULUS OF URETER 12/08/2017 BLAYNE MILLER TRANSPORT ASSISTANT Ot 724.2 LUMBAGO 12/08/2017 BLAYNE MILLER TRANSPORT ASSISTANT Ot 729.5 PAIN IN LIMB 12/08/2017 REYNA SYKES, CHRIS Christopher Ot 722.10 LUMBAR DISC DISPLACEMENT 12/08/2017 CHRIS ORELLANA MD Ot 722.52 LUMB/LUMBOSAC DISC DEGEN 12/08/2017 CUONG FROST MD Ot 722.52 LUMB/LUMBOSAC DISC DEGEN 12/08/2017 CUONG FROST MD Ot V64.3 NO PROC FOR REASONS NEC 12/08/2017 CUONG FROST MD Ot 721.3 LUMBOSACRAL SPONDYLOSIS 12/08/2017 CUONG FROST MD Ot 722.52 LUMB/LUMBOSAC DISC DEGEN 12/08/2017 CUONG FROST MD Ot 729.1 MYALGIA AND MYOSITIS NOS 12/08/2017 CUONG FROST MD Ot V58.69 OTH MED,LT,CURRENT USE 12/08/2017 REHANA SULLIVAN MD Ot V72.84 EXAM PRE-OPERATIVE NOS 12/08/2017 LOLLY HARO MOTOR VEHICLE EMISSIONS INSPECTOR Ot I86.1 SCROTAL VARICES 12/08/2017 LOLLY HARO MOTOR VEHICLE EMISSIONS INSPECTOR Ot N43.3 HYDROCELE, UNSPECIFIED 12/09/2017 Ot F12.10 CANNABIS ABUSE, UNCOMPLICATED 12/09/2017 Ot K21.9 GASTRO- ESOPHAGEAL REFLUX DISEASE WITHOUT 12/09/2017 Ot M53.3 SACROCOCCYGEAL DISORDERS, NOT ELSEWHERE 12/09/2017 Ot R10.32 LEFT LOWER QUADRANT PAIN 12/09/2017 Ot Z82.49 FAMILY HX OF ISCHEM HEART DIS AND OTH DI 12/09/2017 Ot Z87.19 PERSONAL HISTORY OF OTHER DISEASES OF TH 12/09/2017 Ot Z87.442 PERSONAL HISTORY OF URINARY CALCULI 12/09/2017 Ot Z90.89 ACQUIRED ABSENCE OF OTHER ORGANS 12/13/2017 QUANG CONTRERAS Ot 592.1 CALCULUS OF URETER 12/13/2017 BLAYNE MILLER TRANSPORT ASSISTANT Ot 724.2 LUMBAGO 12/13/2017 BLAYNE MILLER R TRANSPORT ASSISTANT Ot 729.5 PAIN IN LIMB 12/13/2017 REYNA SYKES, CHRIS Christopher Ot 722.10 LUMBAR DISC DISPLACEMENT 12/13/2017 CHRIS ORELLANA MD Ot 722.52 LUMB/LUMBOSAC DISC DEGEN 12/13/2017 CUONG FROST MD Ot 722.52 LUMB/LUMBOSAC DISC DEGEN 12/13/2017 CUONG FROST MD Ot V64.3 NO PROC FOR REASONS NEC 12/13/2017 CUONG FROST MD Ot 721.3 LUMBOSACRAL SPONDYLOSIS 12/13/2017 CUONG FROST MD Ot 722.52 LUMB/LUMBOSAC DISC DEGEN 12/13/2017 CUONG FROST MD Ot 729.1 MYALGIA AND MYOSITIS NOS 12/13/2017 CUONG FROST MD Ot V58.69 OTH MED,LT,CURRENT USE 12/13/2017 NATE SYKES, REHANA Hill Ot V72.84 EXAM PRE-OPERATIVE NOS 12/13/2017 LOLLY HARO MOTOR VEHICLE EMISSIONS INSPECTOR Ot I86.1 SCROTAL VARICES 12/13/2017 LOLLY HARO MOTOR VEHICLE EMISSIONS INSPECTOR Ot N43.3 HYDROCELE, UNSPECIFIED 12/14/2017 SYLVIA STOKES DO Ot M47.27 OTHER SPONDYLOSIS WITH RADICULOPATHY, PASHA 12/14/2017 SYLVIA STOKES DO Ot M48.061 SPINAL STENOSIS, LUMBAR REGION WITHOUT N 12/14/2017 SYLVIA STOKES DO Ot M99.73 CONN TISS AND DISC STENOS OF INTVRT FORA 12/20/2017 SYLVIA STOKES DO Ot M47.27 OTHER SPONDYLOSIS WITH RADICULOPATHY, PASHA 12/20/2017 SYLVIA STOKES DO Ot M48.061 SPINAL STENOSIS, LUMBAR REGION WITHOUT N 12/20/2017 SYLVIA STOKES DO Ot M99.73 CONN TISS AND DISC STENOS OF INTVRT FORA 12/28/2017 HEARNDON SYLVIA COOL Ot M47.27 OTHER SPONDYLOSIS WITH RADICULOPATHY, PASHA 12/28/2017 SYLVIA STOKES DO Ot M48.061 SPINAL STENOSIS, LUMBAR REGION WITHOUT N 12/28/2017 SYLVIA STOKES DO Ot M99.73 CONN TISS AND DISC STENOS OF INTVRT FORA 02/24/2018 THA DIEGO MD Ot E87.6 HYPOKALEMIA 02/24/2018 THA DIEGO MD Ot F12.10 CANNABIS ABUSE, UNCOMPLICATED 02/24/2018 THA DIEGO MD Ot F41.9 ANXIETY DISORDER, UNSPECIFIED 02/24/2018 THA DIEGO MD Ot K21.9 GASTRO-ESOPHAGEAL REFLUX DISEASE WITHOUT 02/24/2018 THA DIEGO MD Ot R11.0 NAUSEA 02/24/2018 THA DIEGO MD Ot R42 DIZZINESS AND GIDDINESS 02/24/2018 THA DIEGO MD T Ot Z82.49 FAMILY HX OF ISCHEM HEART DIS AND OTH DI 02/24/2018 THA DIEGO MD Ot Z87.19 PERSONAL HISTORY OF OTHER DISEASES OF TH 02/24/2018 THA IDEGO MD Ot Z87.442 PERSONAL HISTORY OF URINARY CALCULI 02/24/2018 THA DIEGO MD Ot Z90.89 ACQUIRED ABSENCE OF OTHER ORGANS 2018 THA DIEGO MD Ot F12.10 CANNABIS ABUSE, UNCOMPLICATED 2018 THA DIEGO MD Ot R42 DIZZINESS AND GIDDINESS 2018 THA DIEGO MD Ot Z87.442 PERSONAL HISTORY OF URINARY CALCULI 2018 THA DIEGO MD T Ot Z90.89 ACQUIRED ABSENCE OF OTHER ORGANS 2018 THA DIEGO MD Ot E87.6 HYPOKALEMIA 2018 THA DIEGO MD Ot F12.10 CANNABIS ABUSE, UNCOMPLICATED 2018 THA DIEGO MD Ot F41.9 ANXIETY DISORDER, UNSPECIFIED 2018 THA DIEGO MD Ot K21.9 GASTRO-ESOPHAGEAL REFLUX DISEASE WITHOUT 2018 THA DIEGO MD Ot R11.0 NAUSEA 2018 THA DIEGO MD Ot R42 DIZZINESS AND GIDDINESS 2018 THA DIEGO MD Ot Z82.49 FAMILY HX OF ISCHEM HEART DIS AND OTH DI 2018 THA DIEGO MD Ot Z87.19 PERSONAL HISTORY OF OTHER DISEASES OF TH 2018 THA DIEGO MD Ot Z87.442 PERSONAL HISTORY OF URINARY CALCULI 2018 THA DIEGO MD Ot Z90.89 ACQUIRED ABSENCE OF OTHER ORGANS 02/27/2018 THA DIEGO MD Ot E87.6 HYPOKALEMIA 02/27/2018 THA DIEGO MD Ot F12.10 CANNABIS ABUSE, UNCOMPLICATED 02/27/2018 THA DIEGO MD Ot F41.9 ANXIETY DISORDER, UNSPECIFIED 02/27/2018 THA DIEGO MD Ot K21.9 GASTRO-ESOPHAGEAL REFLUX DISEASE WITHOUT 02/27/2018 THA DIEGO MD Ot R11.0 NAUSEA 02/27/2018 THA DIEGO MD Ot R42 DIZZINESS AND GIDDINESS 02/27/2018 THA DIEGO MD Ot Z82.49 FAMILY HX OF ISCHEM HEART DIS AND OTH DI 02/27/2018 THA DIEGO MD Ot Z87.19 PERSONAL HISTORY OF OTHER DISEASES OF TH 02/27/2018 THA DIEGO MD Ot Z87.442 PERSONAL HISTORY OF URINARY CALCULI 02/27/2018 THA DIEGO MD Ot Z90.89 ACQUIRED ABSENCE OF OTHER ORGANS Procedures Code Description [place] [address] EKG, TRACING (IN-HOUSE) 05/23/2012 84389 MRI SPINE (LUMBAR) W/O CONTRAST 05/01/2013 03921 US VENOUS DOPPLER (DVT EVAL ) 08/27/2013 [...] plasma albumin measurement (mass/volume) 4.3 g/dL 3.2-4.5 Complete blood count (CBC) with automated white blood cell (WBC) differential - 02/23/18 23:12 Blood leukocytes automated count (number/volume) 10.6 10*3/uL 4.3-11.0 Blood erythrocytes automated count (number/volume) 5.20 10*6/uL 4.35-5.85 Venous blood hemoglobin measurement (mass/volume) 15.7 g/dL 13.3-17.7 Blood hematocrit (volume fraction) 46 % 40-54 Automated erythrocyte mean corpuscular volume 88 [foz_us] 80-99 Automated erythrocyte mean corpuscular hemoglobin (mass per erythrocyte) 30 pg 25-34 Automated erythrocyte mean corpuscular hemoglobin concentration measurement ( mass/volume) 34 g/dL 32-36 Automated erythrocyte distribution width ratio 13.2 % 10.0-14.5 Automated blood platelet count (count/volume) 206 10*3/uL 130-400 Automated blood platelet mean volume measurement 12.2 [foz_us] 7.4-10.4 Automated blood neutrophils/100 leukocytes 29 % 42-75 Automated blood lymphocytes/100 leukocytes 59 % 12-44 Blood monocytes/100 leukocytes 7 % 0-12 Automated blood eosinophils/100 leukocytes 3 % 0-10 Automated blood basophils/100 leukocytes 1 % 0-10 Blood neutrophils automated count (number/volume) 3.1 10*3 1.8-7.8 Blood lymphocytes automated count (number/volume) 6.3 10*3 1.0-4.0 Blood monocytes automated count (number/volume) 0.8 10*3 0.0-1.0 Automated eosinophil count 0.3 10*3/uL 0.0-0.3 Automated blood basophil count (count/volume) 0.1 10*3/uL 0.0-0.1 Comprehensive metabolic panel - 02/23/18 23:12 Serum or plasma sodium measurement (moles/volume) 141 mmol/L 135-145 Serum or plasma potassium measurement (moles/volume) 3.2 mmol/L 3.6-5.0 Serum or plasma chloride measurement (moles/volume) 105 mmol/L 98-107 Carbon dioxide 22 mmol/L 21-32 Serum or plasma anion gap determination (moles/volume) 14 mmol/L 5-14 Serum or plasma urea nitrogen measurement (mass/volume) 15 mg/dL 7-18 Serum or plasma creatinine measurement (mass/volume) 1.21 mg/dL 0.60-1.30 Serum or plasma urea nitrogen/creatinine mass ratio 12 NRG Serum or plasma creatinine measurement with calculation of estimated glomerular filtration rate > NRG Serum or plasma glucose measurement (mass/volume) 102 mg/dL 70-105 Serum or plasma calcium measurement (mass/volume) 9.9 mg/dL 8.5-10.1 Serum or plasma total bilirubin measurement (mass/volume) 0.5 mg/dL 0.1-1.0 Serum or plasma alkaline phosphatase measurement (enzymatic activity/volume) 75 U/L 40-136 Serum or plasma aspartate aminotransferase measurement (enzymatic activity/ volume) 96 U/L 5-34 Serum or plasma alanine aminotransferase measurement (enzymatic activity/volume ) 151 U/L 0-55 Serum or plasma protein measurement (mass/volume) 7.9 g/dL 6.4-8.2 Serum or plasma albumin measurement (mass/volume) 5.0 g/dL 3.2-4.5 Magnesium - 02/23/18 23:12 Magnesium 2.1 mg/dL 1.8-2.4 Serum or plasma troponin i.cardiac measurement (mass/volume) - 02/23/18 23:12 Serum or plasma troponin i.cardiac measurement (mass/volume) < ng/ mL <0.30 Serum or plasma thyrotropin measurement by detection limit <=0.05 miu/l (units/ volume) - 02/23/18 23:12 Serum or plasma thyrotropin measurement by detection limit <=0.05 miu/l (units/ volume) 1.24 u[iU]/mL 0.35-4.94 Serum or plasma ethanol measurement (mass/volume) - 02/23/18 23:12 Serum or plasma ethanol measurement (mass/volume) < mg/dL <10 Urine drug screening test - 02/24/18 03:15 Urine phencyclidine detection by screening method NEGATIVE NEGATIVE Urine benzodiazepines detection by screening method NEGATIVE NEGATIVE Urine cocaine detection NEGATIVE NEGATIVE Urine amphetamines detection by screening method NEGATIVE NEGATIVE Urine methamphetamine detection by screening method NEGATIVE NEGATIVE Urine cannabinoids detection by screening method POSITIVE NEGATIVE Urine opiates detection by screening method NEGATIVE NEGATIVE Urine barbiturates detection NEGATIVE NEGATIVE Screening urine tricyclic antidepressants detection NEGATIVE NEGATIVE Urine methadone detection by screening method NEGATIVE NEGATIVE Urine oxycodone detection NEGATIVE NEGATIVE Urine propoxyphene detection NEGATIVE NEGATIVE Encounters ACCT No. Visit Date/Time Discharge Status Pt. Type Provider Facility Loc./Unit Complaint [id number] 10/24/2013 00:48:00 10/24/2013 23:59:59 CLS Outpatient KIRILL LUNDY MD [id number] 09/04/2013 13:55:00 09/04/2013 23:59:59 CLS Outpatient CHAYA DESAI APRN [id number] 08/27/2013 17:26:00 08/27/2013 23:59:59 CLS Outpatient BLAYNE MILLER APRN [id number] 04/25/2013 08:59:00 04/25/2013 23:59:59 CLS Outpatient BLAYNE MILLER APRN [id number] 05/23/2012 15:25:00 05/23/2012 23:59:59 CLS Outpatient [id number] 07/31/2012 14:36:00 Document Registration [id number] 02/23/2018 23:03:00 02/24/2018 04:05:00 DIS Emergency JOHNATHON SYKES, THA [place] [facility] ER DIZZINESS [id number] 12/13/2017 11:37:00 12/13/2017 23:59:59 CLS Outpatient SYLVIA STOKES DO [facility] RAD LUMBAR RADICULOPATHY [id number] 09/21/2017 09:45:00 09/21/2017 13:06:00 DIS Emergency JOHNATHON SYKES, THA [place] [facility] ER LOWER ABD PAIN LT SIDE [id number] 09/08/2017 14:01:00 09/08/2017 15:24:00 DIS Emergency ARTHUR HILL APRN [facility] ER EAR INFECTION, POSS KIDNEY STONE [id number] 08/09/2017 09:52:00 08/09/2017 14:25:00 DIS Outpatient CASSANDRA YOUNG MD [facility] ENDO BLOOD IN STOOLS/HX POLYPS/REFLUX/FAM HX COLON CA [id number] 08/02/2017 05:39:00 08/02/2017 14:31:00 DIS Outpatient CASSANDRA YOUNG MD [facility] PREOP COLONOSCOPY/EGD [id number] 01/17/2017 18:44:00 01/17/2017 20:19:00 DIS Emergency [place] DO ABRAN Pelletier [facility] ER CHEST PAIN [id number] 09/21/2016 07:16:00 09/21/2016 08:01:00 DIS Emergency JOHNATHON SYKES, THA [place] [facility] ER DIFFICULTY SWALLOWING, EARACHE [id number] 07/19/2016 12:38:00 07/19/2016 15:11:00 DIS Emergency ARCHIE RICE MD [facility] ER LEFT FLANK PAIN [id number] 06/03/2016 06:42:00 06/03/2016 07:40:00 DIS Outpatient CUONG FROST MD [facility] CARD DISC DISORDER [id number] 05/01/2016 10:57:00 05/01/2016 12:25:00 DIS Emergency ARTHUR HILL APRN [facility] ER HEADACHE/SORE THROAT [id number] 12/20/2015 13:39:00 12/20/2015 15:25:00 DIS Emergency QUANG CONTRERAS [facility] ER POSS ALLERGIC REACTION [id number] 12/17/2015 09:03:00 12/17/2015 23:59:59 CLS Outpatient LOLLY HARO Liz MOTOR VEHICLE EMISSIONS INSPECTOR [facility] RAD LT TESTICULAR SWELLING [id number] 09/30/2015 14:46:00 09/30/2015 14:55:00 DIS Emergency ARTHUR HILL APRN [facility] ER RASH ON FEET [id number] 05/21/2015 22:37:00 05/22/2015 01:46:00 DIS Emergency ARCHIE RICE MD [facility] ER CHEST PAIN [id number] 09/25/2014 07:39:00 09/25/2014 11:10:00 DIS Outpatient REHANA SULLIVAN MD [facility] RECTAL BLEEDING [id number] 09/24/2014 06:17:00 09/24/2014 23:59:59 CLS Outpatient REHANA SULLIVAN MD [facility] PREOP RECTAL BLEEDING [id number] 04/28/2014 12:57:00 04/28/2014 23:59:59 CLS Outpatient CUONG FROST MD [facility] CARD DDD [id number] 04/21/2014 13:18:00 04/21/2014 23:59:59 CLS Outpatient CUONG FROST MD [facility] CARD DDD [id number] 04/10/2014 16:41:00 04/10/2014 18:11:00 DIS Emergency ARTHUR HILL APRN [facility] ER BACK PAIN [id number] 01/13/2014 12:26:00 01/13/2014 13:30:00 DIS Outpatient CUONG FROST MD [facility] CARD DDD-LUMBAR [id number] 11/26/2013 14:35:00 11/26/2013 23:59:59 CLS Outpatient CHRIS ORELLANA MD [facility] RAD LUMBAR DISC BULGE, WEAKNESS ON LEFT SIDE [id number] 09/15/2013 15:59:00 09/17/2013 14:41:00 DIS Outpatient AGUEDA HUMPHRIES MD Via [facility] RIGHT URETEROVESICAL JUNCTION STONE [id number] 09/12/2013 07:58:00 09/12/2013 23:59:59 CLS Outpatient QUANG CONTRERAS [facility] RAD URETEROLITHIASIS [id number] 09/11/2013 14:51:00 09/11/2013 17:50:00 DIS Emergency QUANG CONTRERAS [facility] ER LOWER ABD PAIN/ VOMITING [id number] 08/27/2013 18:47:00 08/27/2013 23:59:59 CLS Outpatient BLAYNE MILLER TRANSPORT ASSISTANT [facility] RAD L LEG PAIN [id number] 08/25/2013 20:42:00 08/25/2013 21:33:00 DIS Emergency ARTHUR HILL TRANSPORT ASSISTANT [facility] ER BUTTOCK/LEG PAIN [id number] 08/11/2013 19:07:00 08/11/2013 22:54:00 DIS Emergency QUANG CONTRERAS [facility] ER BACK PAIN [id number] 05/01/2013 14:52:00 05/01/2013 23:59:59 CLS Outpatient BLAYNE MILLER TRANSPORT ASSISTANT [facility] RAD LUMBAGO, LOW BACK PAIN [id number] 04/18/2013 12:26:00 04/18/2013 13:34:00 DIS Emergency ARTHUR HILL TRANSPORT ASSISTANT [facility] ER BACK PAIN [id number] 11/15/2012 13:19:00 11/15/2012 23:59:59 CLS Outpatient [id number] 11/30/2017 13:13:00 Document Registration [id number] 05/26/2015 14:12:00 Document Registration [id number] 11/21/2010 16:38:00 Document Registration [id number] 03/25/2010 07:44:00 Document Registration [id number] 03/22/2010 10:06:00 Document Registration [id number] 11/05/2009 13:08:00 Document Registration
--- NOTE | 2018-04-23 15:39 | ED GU-Male ---
General Chief Complaint: -Male Stated Complaint: LOWER ABD PAIN Nursing Triage Note: Ambulatory to rm 3. Pt reports R sided pelvic/groin pain that has persisted for 5 days. Pt reports hx of kidney stones and reports this feels like previous incidents. Pt denies bowel or urination issues. Source: patient Exam Limitations: no limitations History of Present Illness Date Seen by Provider: Apr 23, 2018 Time Seen by Provider: 15:31 Initial Comments Patient presents to ER by private conveyance with chief complaint of right groin and right back pain. He feels this is another kidney stone. He's had about 4 stones in the past. He is treated by Dr. Dubois has had to have lithotripsy in the past. He's not seeing any hematuria. He drink a lot of fluids on his way to the ER hopes that he could urinate but has not been able to yet. He's having mild burning when he urinates. He denies any fevers chills nausea vomiting or diarrhea. Allergies and Home Medications Allergies Coded Allergies: No Known Drug Allergies (Unverified , 08/02/17) Home Medications Methylprednisolone 4 Mg Tab.ds.pk, 4 MG PO UD Prescribed by: ARTHUR HILL on 11/30/17 1416 Patient Home Medication List Home Medication List Reviewed: Yes Review of Systems Review of Systems Constitutional: No chills, No fever EENTM: No ear pain, No eye pain Respiratory: No cough, No phlegm Cardiovascular: No chest pain, No edema Gastrointestinal: abdominal pain (Right groin); No constipation, No nausea, No vomiting Genitourinary: denies discharge; dysuria; denies frequency, denies hematuria Musculoskeletal: back pain (right flank); No joint pain, No joint swelling Past Yeyeyzj-Elfqbt-Woycuf Hx Patient Social History Alcohol Use: Denies Use 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) Drug of Choice: MARIJUANA Smoking Status: Never a Smoker 2nd Hand Smoke Exposure: No Recent Foreign Travel: No Contact w/Someone Who Travel: No Recent Infectious Disease Expo: No Recent Hopitalizations: No Physical Abuse: No Sexual Abuse: No Immunizations Up To Date Tetanus Booster (TDap): More than 5yrs Seasonal Allergies Seasonal Allergies: No Past Medical History Surgeries: Yes (KIDNEY STONES; LEFT KNEE SCOPE, GALLBLADDER ?) Appendectomy, Orthopedic Respiratory: No Cardiac: No Neurological: No Reproductive Disorders: No Sexually Transmitted Disease: No HIV/AIDS: No Genitourinary: Yes Kidney Stones Gastrointestinal: Yes (BLOOD IN STOOLS) Gastroesophageal Reflux, Ulcer Musculoskeletal: Yes (TORN MENISCUS-LEFT KNEE SCOPE, sciatic nerve pain) Degenerate Disk Disease, Back Injury Endocrine: No HEENT: No Loss of Vision: Denies Hearing Impairment: Denies Cancer: No Did You Recieve Any Treatments: No Psychosocial: No Integumentary: No Blood Disorders: No Adverse Reaction/Blood Tranf: No Family Medical History Family history: Arthritis G8 SISTER (SEVERE BACK PAIN) Family history: Cardiovascular disease 19 FATHER (PACEMAKER; FROM CARDIAC ISSUES) Family history: Diabetes mellitus 19 FATHER 19 MOTHER G8 BROTHER G8 SISTER Heart Disease, Diabetes Physical Exam Vital Signs Vital Signs - First Documented 04/23/18 15:15 Temp 98.2 Pulse 76 Resp 13 B/P (MAP) 137/83 (101) Pulse Ox 97 O2 Delivery Room Air Capillary Refill : Less Than 3 Seconds Height, Weight, BMI Height: 6'3.00" Weight: 230lbs. 0oz. 104.712773gc; 29.4 BMI Method:Stated General Appearance: WD/WN, mild distress HEENT: PERRL/EOMI, normal ENT inspection, pharynx normal Cardiovascular: normal peripheral pulses, regular rate, rhythm Respiratory: no respiratory distress, no accessory muscle use Gastrointestinal: normal bowel sounds, non tender, soft Back: normal inspection, no CVA tenderness Extremities: normal range of motion, non-tender, normal inspection, normal capillary refill Neurologic/Psychiatric: alert, normal mood/affect, oriented x 3 Progress/Results/Core Measures Suspected Sepsis Recent Fever Within 48 Hours: No Infection Criteria Present: None New/Unexplained Altered Menta: No Sepsis Screen: No Definite Risk SIRS Temperature:98.2 Pulse: 76 Respiratory Rate: 13 Blood Pressure 137 /83 Mean: 101 Results/Orders Lab Results Laboratory Tests Test 04/23/18 16:15 Range/Units Urine Color YELLOW Urine Clarity CLEAR Urine pH 5 5-9 Urine Specific Daniel 1.025 H 1.016-1.022 Urine Protein NEGATIVE NEGATIVE Urine Glucose (UA) NEGATIVE NEGATIVE Urine Ketones NEGATIVE NEGATIVE Urine Nitrite NEGATIVE NEGATIVE Urine Bilirubin NEGATIVE NEGATIVE Urine Urobilinogen NORMAL NORMAL MG/DL Urine Leukocyte Esterase NEGATIVE NEGATIVE Urine RBC (Auto) NEGATIVE NEGATIVE Urine RBC NONE /HPF Urine WBC RARE /HPF Urine Crystals NONE /LPF Urine Bacteria NEGATIVE /HPF Urine Casts NONE /LPF Urine Mucus SMALL H /LPF Urine Culture Indicated NO My Orders Orders - KELLY PEREZ Ct Abd/Pelvis Wo(Kidney Stone) (04/23/18 15:37) Ketorolac Injection (Toradol Injection) (04/23/18 15:45) Ua Culture If Indicated (04/23/18 15:37) Us Scrotum (Testicle) [id number] (04/23/18 17:49) Medications Given in ED Current Medications Medications Dose Ordered Sig/Krissy Route Start Time Stop Time Status Last Admin Dose Admin Ketorolac Tromethamine 30 mg ONCE ONCE IM 04/23/18 15:45 04/23/18 15:46 DC 04/23/18 15:50 30 MG Vital Signs/I&O 04/23/18 15:15 Temp 98.2 Pulse 76 Resp 13 B/P (MAP) 137/83 (101) Pulse Ox 97 O2 Delivery Room Air Capillary Refill : Less Than 3 Seconds Blood Pressure Mean: 101 Progress Note : Time: 17:43 Progress Note We gave Toradol and obtained a CT of his abdomen without contrast. CT didn't show any distinct stone or hydroureter. He could've recently just passed the stone or perhaps it's too small to be seen however there is no evidence of obstruction. Let him follow-up with primary care outpatient. The Toradol seemed to work pretty well for his pain. He is resting much more comfortable now. He is status post appendectomy. Aseptic vital signs. Patient's pain is going down to his testicle so we would offer an ultrasound that ultrasound is not available. Since going on for 5 days and he said he's had this exact same pain before several times in the past and asked why he thought it was his kidney stone pain I am much less concerned about a testicular torsion. We'll have him follow-up with urology outpatient or primary care. Diagnostic Imaging Diagonstic Imaging: CT (without contrast) Plain Films/CT/US/NM/MRI: abdomen, pelvis Comments NAME: NEYDA SAUNDERS MED REC#: [id number] PHYSICIAN: KELLY PEREZ MD CC: REHANA MELGAR MD; KELLY PEREZ Page 1 of 1 RAD[facility]OLOGY REPORT [facility] [place], [place] CC: REHANA MELGAR MD; KELLY PEREZ Page 1 of 1 RADIOLOGY REPORT NAME: NEYDA SAUNDERS [facility] REC#: [id number] PT STATUS: REG ER : 1975 PHYSICIAN: KELLY PEREZ MD ADMIT DATE: 04/23/18/ER Signed Date of Exam: 04/23/18 CT ABD/PELVIS WO(KIDNEY STONE) INDICATION: Right-sided flank pain, history of kidney stones. CT of the abdomen and pelvis obtained without IV contrast and compared to 09/08/2017. Visualized portions of the lung bases are clear. There are no pleural fluid collections. There is no free intraperitoneal air. The liver and gallbladder appear normal. Spleen, adrenals, and pancreas appear normal. Kidneys bilaterally show no hydronephrosis or overt mass. There appears to be a tiny nonocclusive stone in the mid pole of the left kidney. There are no ureteral stones. Visualized bowel loops appear unremarkable. Patient appears to have had prior appendectomy. There is no pelvic mass or free fluid. IMPRESSION: No evidence of hydronephrosis or ureteral stone. Tiny nonocclusive stone in mid pole of left kidney. Evidence of previous appendectomy. No acute process is visualized. Dictated by: Dictated on workstation # [id number] Dict: 04/23/18 1626 Trans: 04/23/18 1646 Interpreted by: REHANA MELGAR MD Electronically signed by: REHANA MELGAR MD 04/23/18 1646 Reviewed: Reviewed by Ar Departure Impression Primary Impression: Right groin pain Disposition: HOME, SELF-CARE Condition: Improved Departure-Patient Inst. Decision time for Depature: 18:19 Referrals: CHRIS ORELLANA MD (PCP/Family) Primary Care Physician AGUEDA HUMPHRIES MD Patient Instructions: Groin Strain (DC) Add. Discharge Instructions: Follow-up with urology outpatient by giving him a call. Use Tylenol, Motrin and as needed tramadol 1 tablet every 6 hours for breakthrough pain. Follow-up with primary care. All discharge instructions reviewed with patient and/or family. Voiced understanding. Scripts Tramadol HCl (Tramadol HCl) 50 Mg Tablet 50 MG PO Q6H PRN for PAIN, #20 TAB 0 Refills Prov: KELLY PEREZ 04/23/18 Copy Copies To 1: AGUEDA HUMPHRIES MD, TITUS J Apr 23, 2018 15:39
[2018-04-23] MEDS ORDERED: KETOROLAC 30 MG/ML VIAL IM ONE (15:45)
[2018-04-23 16:25] LABS: BILIRUBIN,URINE NEGATIVE (NEGATIVE); CLARITY,URINE CLEAR; COLOR,URINE YELLOW; GLUCOSE, URINE (UA) NEGATIVE (NEGATIVE); KETONES,URINE NEGATIVE (NEGATIVE); LEUKOCYTE ESTERASE ,URINE NEGATIVE (NEGATIVE); NITRITE,URINE NEGATIVE (NEGATIVE); PH,URINE 5 (5-9); PROTEIN,URINE NEGATIVE (NEGATIVE); UROBILINOGEN,URINE NORMAL (NORMAL)
--- NOTE | 2018-04-23 16:40 | Diagnostic Imaging Report ---
INDICATION: Right-sided flank pain, history of kidney stones. CT of the abdomen and pelvis obtained without IV contrast and compared to 09/08/2017. Visualized portions of the lung bases are clear. There are no pleural fluid collections. There is no free intraperitoneal air. The liver and gallbladder appear normal. Spleen, adrenals, and pancreas appear normal. Kidneys bilaterally show no hydronephrosis or overt mass. There appears to be a tiny nonocclusive stone in the mid pole of the left kidney. There are no ureteral stones. Visualized bowel loops appear unremarkable. Patient appears to have had prior appendectomy. There is no pelvic mass or free fluid. IMPRESSION: No evidence of hydronephrosis or ureteral stone. Tiny nonocclusive stone in mid pole of left kidney. Evidence of previous appendectomy. No acute process is visualized. Dictated by: Dictated on workstation # [id number]
[2018-04-23 16:47] LABS: BACTERIA,URINE NEGATIVE /HPF; WBC,URINE RARE /HPF
--- NOTE | 2018-04-23 17:55 | NUR ---
Radiology called letting the ED know there is no US at night. Silvia notified.
[2018-04-23] MEDS ORDERED: TRAM50TA2 PO (18:21)
[2018-04-23 18:25] VITALS: BP 151/91
== END 2018-04-23 18:27 | disposition home or self-care (01) ==
LOC: EDUNIT# 14:46 → ER 14:47
DX: R10.31 Right lower quadrant pain (principal); F12.10 Cannabis abuse, uncomplicated; F15.10 Other stimulant abuse, uncomplicated; K21.9 Gastro-esophageal reflux disease without esophagitis; Z82.49 Family history of ischemic heart disease and other diseases of the circulatory system; Z87.19 Personal history of other diseases of the digestive system; Z90.49 Acquired absence of other specified parts of digestive tract; Z87.442 Personal history of urinary calculi; Z79.52 Long term (current) use of systemic steroids
CPT/HCPCS: 74176; 81000; 96372

== ENCOUNTER → 2018-04-30 | Outpatient (CLI) | payer MEDICAID ==
[~2018-04-30] MED LIST changes: +CATHETER FLUSH 10 ML SYR IV PRN; +TRAM50TA2 PO
--- NOTE | 2018-04-30 15:07 | Diagnostic Imaging Report ---
INDICATION: Right upper quadrant pain. TECHNIQUE: The patient was administered 5.4 mCi of technetium 99M Choletec intravenously and imaging over the abdomen was performed. At 45 minutes, the patient ingested 8 ounces of Ensure and a gallbladder ejection fraction was calculated. FINDINGS: There is homogeneous uptake of activity by the liver. There is prompt excretion of activity into the common duct and gallbladder. Normal passage of activity into the small bowel is seen. The gallbladder ejection fraction is 26%. Normal values are 33% or greater. IMPRESSION: 1. No evidence of cystic duct or common bile duct obstruction. 2. Slightly low gallbladder ejection fraction of 26%. Dictated by: Dictated on workstation # [id number]
== END ==
LOC: CARD 12:03
PROVIDERS: ATTEND Family Medicine
DX: R10.11 Right upper quadrant pain (principal); K82.8 Other specified diseases of gallbladder
CPT/HCPCS: 78227

== ENCOUNTER 2021-04-26 18:09 | Emergency (ER) | payer SELFPAY ==
[~2021-04-26] VITALS: Ht 190.5 cm; Wt 106.6 kg
[~2021-04-26 18:09] MED LIST changes: -CATHETER FLUSH 10 ML SYR IV PRN; -HYDR-3812 PO; -TRAM50TA2 PO; +TRM50T PO
--- NOTE | 2021-04-26 19:21 | ED Cough/URI ---
General Stated Complaint: COUGH,N,V,D, WILLARD, Source: patient Exam Limitations: no limitations (PEG HERNANDEZ) History of Present Illness Date Seen by Provider: Apr 26, 2021 Time Seen by Provider: 19:19 Initial Comments Patient is a 46-year-old male who presents ED with flulike symptoms. Symptoms started today around 330. Reports 3 episodes of diarrhea and 3-4 episodes of vomiting. Patient states he was dry heaving right before arrival. He did drink some Sprite. Reports generalized abdominal discomfort reports headache. patient took ibuprofen at home without much improvement. He states he was diagnosed with strep throat 2 weeks ago. Reports bodyaches, fatigue and generalized weakness. Patient denies any fever, dizziness, visual changes, ear pain, sore throat, change in urination. (PEG HERANNDEZ) Allergies and Home Medications Allergies Coded Allergies: No Known Drug Allergies (Unverified , 08/02/17) Patient Home Medication List Home Medication List Reviewed: Yes (PEG HERNANDEZ) Methylprednisolone (Medrol) 4 Mg Tab.ds.pk, 4 MG PO UD Prescribed by: ARTHUR HILL on 11/30/17 1416 Naproxen (Naproxen) 500 Mg Tablet.dr, 500 MG PO BID Prescribed by: PRISCILLA HESTER on 04/26/212035 Nystatin (Nystatin) Unknown Strength Powder.ea., Unknown Dose MC, (Reported) Entered as Reported by: TATYANA ERICKSON on 11/30/17 1330 Ondansetron (Ondansetron Odt) 4 Mg Tab.rapdis, 4 MG PO Q4H Prescribed by: PRISCILLA HESTER on 04/26/212035 Tramadol HCl (Tramadol HCl) 50 Mg Tablet, 50 MG PO Q6H PRN for PAIN Prescribed by: KELLY PEREZ on 04/23/18 182 Review of Systems Review of Systems Constitutional: No chills, No diaphoresis, No dizziness EENTM: No ear pain, No blurred vision, No mouth pain, No throat pain, No throat swelling Respiratory: No cough, No dyspnea on exertion, No orthopnea Cardiovascular: No chest pain, No edema, No palpitations Gastrointestinal: abdominal pain, diarrhea, nausea Genitourinary: No decreased output, No discharge Musculoskeletal: No back pain, No joint pain Skin: No change in color Psychiatric/Neurological: Denies Anxiety, Denies Depressed (PEG HERNANDEZ) All Other Systems Reviewed Negative Unless Noted: Yes (PEG HERNANDEZ) Past Mgyxotc-Fusrdq-Aowqns Hx Immunizations Up To Date Tetanus Booster (TDap): More than 5yrs (PEG HERNANDEZ) Seasonal Allergies Seasonal Allergies: No (PEG HERNANDEZ) Past Medical History Surgeries: Yes (KIDNEY STONES; LEFT KNEE SCOPE, GALLBLADDER ?) Appendectomy, Orthopedic Respiratory: No Cardiac: No Neurological: No Reproductive Disorders: No Sexually Transmitted Disease: No HIV/AIDS: No Genitourinary: Yes Kidney Stones Gastrointestinal: Yes (BLOOD IN STOOLS) Gastroesophageal Reflux, Ulcer Musculoskeletal: Yes (TORN MENISCUS-LEFT KNEE SCOPE, sciatic nerve pain) Degenerate Disk Disease, Back Injury Endocrine: No HEENT: No Loss of Vision: Denies Hearing Impairment: Denies Cancer: No Did You Recieve Any Treatments: No Psychosocial: No Integumentary: No Blood Disorders: No Adverse Reaction/Blood Tranf: No (PEG HERNANDEZ) Family Medical History Family history: Arthritis G8 SISTER (SEVERE BACK PAIN) Family history: Cardiovascular disease 19 FATHER (PACEMAKER; FROM CARDIAC ISSUES) Family history: Diabetes mellitus 19 FATHER 19 MOTHER G8 BROTHER G8 SISTER Heart Disease, Diabetes (PEG HERNANDEZ) Physical Exam Vital Signs - First Documented 04/26/21 19:14 Temp 36.1 Pulse 78 Resp 20 B/P (MAP) 129/91 (104) Pulse Ox 100 O2 Delivery Room Air (THA DIEGO MD) Capillary Refill : (PEG HERNANDEZ) Height: 6'3.00" Weight: 230lbs. 0oz. 104.252256mx; 29.4 BMI Method:Stated General Appearance: WD/WN, no apparent distress Eyes: Bilateral Eye Normal Inspection, Bilateral Eye PERRL, Bilateral Eye EOMI HEENT: PERRL/EOMI, normal ENT inspection, TMs normal, pharynx normal Neck: non-tender, full range of motion, normal inspection Respiratory: chest non-tender, lungs clear, normal breath sounds, no respiratory distress, no accessory muscle use Cardiovascular: regular rate, rhythm, no edema, no gallop, no JVD Gastrointestinal: normal bowel sounds, non tender, soft, no organomegaly Extremities: normal range of motion, non-tender, normal inspection 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, no motor/sensory deficits, al ert, normal mood/affect, oriented x 3 Skin: normal color, warm/dry (PEG HERNANDEZ) Progress/Results/Core Measures Suspected Sepsis SIRS Temperature: Pulse: Respiratory Rate: Blood Pressure / Mean: (PEG HERNANDEZ) Results/Orders Lab Results Laboratory Tests Test 04/26/21 19:16 Range/Units Influenza Type A (RT-PCR) Not Detected Not Detecte Influenza Type B (RT-PCR) Not Detected Not Detecte SARS-CoV-2 RNA (RT-PCR) Not Detected Not Detecte (THA DIEGO MD) My Orders Orders - THA DIEGO MD Covid 19 Inhouse Test (04/26/21 18:21) Influenza A And B By Pcr (04/26/21 18:21) (THA DIEGO MD) Medications Given in ED Current Medications Medications Dose Ordered Sig/Krissy Route Start Time Stop Time Status Last Admin Dose Admin Naproxen 500 mg ONCE ONCE PO 04/26/21 20:15 04/26/21 20:16 DC 04/26/21 20:11 500 MG Ondansetron HCl 4 mg ONCE ONCE PO 04/26/21 20:15 04/26/21 20:16 DC 04/26/21 20:11 4 MG (THA DIEGO MD) Vital Signs/I&O 04/26/21 04/26/21 19:14 20:44 Temp 36.1 Pulse 78 77 Resp 20 20 B/P (MAP) 129/91 (104) 116/80 Pulse Ox 100 98 O2 Delivery Room Air Room Air (THA DIEGO MD) Vital Signs/I&O Capillary Refill : (PEG HERNANDEZ) Departure Communication (Admissions) Patient is a 46-year-old male who presents ED with flulike symptoms. Patient reports episode of vomiting and diarrhea this evening. Generalized abdominal cramping. Patient has no abdominal tenderness on palpation. Patient lung sounds clear bilateral. Vital signs completely stable. Tolerating p.o. fluids at bedside. Was given a dose of naproxen for headache. Covid and influenza pending. Patient continued to have a headache but refused any more medication. Offered IM medications. He has no meningeal signs. Denies worst headache of his life. No visual changes. Stable blood pressure. Headache started after the vomiting and diarrhea. Recommend continue hydration at home. Patient was able to urinate here. Did state if symptoms progress or worsen to return back to ED for further evaluation. (PEG HERNANDEZ) Impression Primary Impression: Viral syndrome Disposition: HOME, SELF-CARE Condition: Stable Departure-Patient Inst. Decision time for Depature: 20:36 (PEG HERNANDEZ) Referrals: NO,LOCAL PHYSICIAN (PCP/Family) Primary Care Physician Patient Instructions: Viral Syndrome (DC) Scripts Naproxen (Naproxen) 500 Mg Tablet.dr 500 MG PO BID, #14 TAB Prov: PEG HERNANDEZ 04/26/21 Ondansetron (Ondansetron Odt) 4 Mg Tab.rapdis 4 MG PO Q4H, #10 TAB Prov: PEG HERNANDEZ 04/26/21 Work/School Note: Work Release Form Date Seen in the Emergency Department: Apr 26, 2021 Return to Work: Apr 28, 2021 ATTENDING PHYSICIAN NOTE: I was physically present as attending physician in the emergency department during the care of this patient, but I was not directly involved in the decision making or delivery of care for this patient. (THA DIEGO MD) PEG HERNANDEZ Apr 26, 2021 19:21 THA DIEGO MD Apr 27, 2021 07:46
[2021-04-26] MEDS ORDERED: ONDANSETRON 4 MG (ZOFRAN) ORAL DISSOLVE TAB PO ONE (20:15)
[2021-04-26] MEDS ORDERED: NAPROXEN 250 MG (NAPROSYN) TABLET PO ONE (20:15)
[2021-04-26] MEDS ORDERED: NAPR500T8 PO (20:36)
[2021-04-26] MEDS ORDERED: ONDA4TAB11 PO (20:36)
[2021-04-26 20:44] VITALS: BP 116/80
== END 2021-04-26 20:44 | disposition home or self-care (01) ==
LOC: EDUNIT# 18:09 → ER 18:14
DX: B34.9 Viral infection, unspecified (principal); Z20.822 Contact with and (suspected) exposure to COVID-19
CPT/HCPCS: 87636; 99283

== ENCOUNTER 2021-10-08 14:25 | Emergency (ER) | payer SELFPAY ==
[~2021-10-08] VITALS: Ht 190 cm; Wt 107.0 kg
[~2021-10-08 14:25] MED LIST changes: +NAPR500T8 PO; +ONDA4TAB11 PO
[2021-10-08] MEDS ORDERED: ASPIRIN 81 MG CHEW (CHILDREN'S ASA) ONE (14:49)
[2021-10-08] MEDS ORDERED: ASPIRIN 81 MG CHEW (CHILDREN'S ASA) PO ONE (15:15)
--- NOTE | 2021-10-08 15:20 | ED Chest Pain ---
General Chief Complaint: Chest Pain Stated Complaint: CP, R ARM NUMBNESS Nursing Triage Note: PT REPORTS TO ED POV FOR CHEST PAIN FOR A COUPLE OF WEEKS. PT IS CONCERNED DUE TO LEFT SIDED NECK DISCOMFORT AND RIGHT SHOULDER AND ARM PAIN THAT STARTED THIS MORNING. PT DENIES CARDIAC HX FOR SELF. PT AMB. TO ROOM 03 WITHOUT DIFFICULTY. PT ALERT AND ORIENTED X'S 4. Source: patient Exam Limitations: no limitations History of Present Illness Date Seen by Provider: Oct 08, 2021 Time Seen by Provider: 14:54 Initial Comments Patient ER by private conveyance chief complaint is been having some off-and-on chest pain described as burning over his substernal and left chest. For the past 2 days its radiated to his right shoulder with some tingling in his arm on the right side. He is also having some spasming like pain 3 times a day lasting a few minutes at a time in his left neck radiating up behind his left ear. His father had a heart attack in his early 50s. His mother sister and brother all have diabetes. He does not have diabetes, hypertension, hyperlipidemia or smoking. He does not follow with a doctor routinely. He denies a personal history of coronary disease. He does not take anything for the pain. He says he gets worse when he bends over. Its reproducible to direct palpation. It is not reproducible with deep inspiration. He is not having any nausea, vomiting, fevers, chills, cough, shortness of air, exertional dyspnea, pain in his legs or swelling. Allergies and Home Medications Allergies Coded Allergies: No Known Drug Allergies (Unverified , 08/02/17) Patient Home Medication List Home Medication List Reviewed: Yes Methylprednisolone (Medrol) 4 Mg Tab.ds.pk, 4 MG PO UD Prescribed by: ARTHUR HILL on 11/30/17 1416 Naproxen (Naproxen) 500 Mg Tablet.dr, 500 MG PO BID Prescribed by: PRISCILLA HESTER on 04/26/212035 Nystatin (Nystatin) Unknown Strength Powder.ea., Unknown Dose MC, (Reported) Entered as Reported by: TATYANA ERICKSON on 11/30/17 1330 Ondansetron (Ondansetron Odt) 4 Mg Tab.rapdis, 4 MG PO Q4H Prescribed by: PRISCILLA HESTER on 04/26/212035 Tramadol HCl (Tramadol HCl) 50 Mg Tablet, 50 MG PO Q6H PRN for PAIN Prescribed by: KELLY PEREZ on 04/23/181820 Review of Systems Review of Systems Constitutional: No chills, No diaphoresis EENTM: No Blurred Vision, No Double Vision Respiratory: Denies Cough, Denies Orthopnea Cardiovascular: Chest Pain; Denies Edema, Denies Lightheadedness Gastrointestinal: Denies Abdominal Pain, Denies Constipated, Denies Diarrhea, Denies Nausea Genitourinary: Denies Burning, Denies Discharge Musculoskeletal: No back pain, No joint pain Skin: No pruritus, No rash Psychiatric/Neurological: Denies Headache, Denies Numbness All Other Systems Reviewed Negative Unless Noted: Yes Past Lrxhewb-Ppprjj-Vuplej Hx Patient Social History Tobacco Use?: No Substance use?: Yes Substance type: Marijuana Additional substance use comme: LAST USED 10/04/21 Substance frequency: Couple times a week Alcohol Use?: No Pt feels they are or have been: No Immunizations Up To Date Tetanus Booster (TDap): More than 5yrs First/Initial COVID19 Vaccinat: 2020 COVID19 Vaccine R&D Engineer: Gertrude Seasonal Allergies Seasonal Allergies: No Past Medical History Surgery/Hospitalization HX: DENIES PMH. SUGERIES; GALLBLADDER, APPENDECTOMY, COUPLE OF COLONOSCOPY, AND LT KNEE SURGERY. Surgeries: Yes (KIDNEY STONES; LEFT KNEE SCOPE, GALLBLADDER ?) Appendectomy, Orthopedic Respiratory: No Cardiac: No Neurological: No Reproductive Disorders: No Sexually Transmitted Disease: No HIV/AIDS: No Genitourinary: Yes Kidney Stones Gastrointestinal: Yes (BLOOD IN STOOLS) Gastroesophageal Reflux, Ulcer Musculoskeletal: Yes (TORN MENISCUS-LEFT KNEE SCOPE, sciatic nerve pain) Degenerate Disk Disease, Back Injury Endocrine: No HEENT: No Loss of Vision: Denies Hearing Impairment: Denies Cancer: No Did You Recieve Any Treatments: No Psychosocial: No Integumentary: No Blood Disorders: No Adverse Reaction/Blood Tranf: No Family Medical History Family history: Arthritis G8 SISTER (SEVERE BACK PAIN) Family history: Cardiovascular disease 19 FATHER (PACEMAKER; FROM CARDIAC ISSUES) Family history: Diabetes mellitus 19 FATHER 19 MOTHER G8 BROTHER G8 SISTER Heart Disease, Diabetes Physical Exam Vital Signs Vital Signs - First Documented 10/08/21 14:27 Temp 36.0 Pulse 71 Resp 18 B/P (MAP) 138/95 (109) Pulse Ox 99 O2 Delivery Room Air Capillary Refill : Less Than 3 Seconds Height, Weight, BMI Height: 6'3.00" Weight: 230lbs. 0oz. 104.704007sg; 29.00 BMI Method:Stated General Appearance: No Apparent Distress, WD/WN, Anxious HEENT: PERRL/EOMI, Pharynx Normal, Moist Mucous Membranes Neck: Full Range of Motion, Normal Inspection, Non Tender, Supple Respiratory: No Chest Non Tender (Left chest wall tender to palpation and reproduces his symptoms); Lungs Clear, Normal Breath Sounds, No Accessory Muscle Use, No Respiratory Distress Cardiovascular: Regular Rate, Rhythm, No Edema, Normal Peripheral Pulses Gastrointestinal: Normal Bowel Sounds, Non Tender, Soft Extremity: Normal Capillary Refill, Normal Inspection, Normal Range of Motion Neurologic/Psychiatric: Alert, Oriented x3, No Motor/Sensory Deficits Skin: Normal Color, Warm/Dry Progress/Results/Core Measures Results/Orders Lab Results Laboratory Tests Test 10/08/21 14:32 10/08/21 17:26 Range/Units White Blood Count 7.7 4.3-11.0 10^3/uL Red Blood Count 5.17 4.30-5.52 10^6/uL Hemoglobin 15.4 13.3-17.7 g/dL Hematocrit 46 40-54 % Mean Corpuscular Volume 89 80-99 fL Mean Corpuscular Hemoglobin 30 25-34 pg Mean Corpuscular Hemoglobin Concent 34 32-36 g/dL Red Cell Distribution Width 12.8 10.0-14.5 % Platelet Count 210 130-400 10^3/uL Mean Platelet Volume 12.9 H 9.0-12.2 fL Immature Granulocyte % (Auto) 0 % Neutrophils (%) (Auto) 44 42-75 % Lymphocytes (%) (Auto) 42 12-44 % Monocytes (%) (Auto) 8 0-12 % Eosinophils (%) (Auto) 4 0-10 % Basophils (%) (Auto) 2 0-10 % Neutrophils # (Auto) 3.4 1.8-7.8 10^3/uL Lymphocytes # (Auto) 3.3 1.0-4.0 10^3/uL Monocytes # (Auto) 0.6 0.0-1.0 10^3/uL Eosinophils # (Auto) 0.3 0.0-0.3 10^3/uL Basophils # (Auto) 0.1 0.0-0.1 10^3/uL Immature Granulocyte # (Auto) 0.0 0.0-0.1 10^3/uL Prothrombin Time 13.7 12.2-14.7 SEC INR Comment 1.0 0.8-1.4 Activated Partial Thromboplast Time 30 24-35 SEC Sodium Level 140 135-145 MMOL/L Potassium Level 4.0 3.6-5.0 MMOL/L Chloride Level 105 98-107 MMOL/L Carbon Dioxide Level 25 21-32 MMOL/L Anion Gap 10 5-14 MMOL/L Blood Urea Nitrogen 18 7-18 MG/DL Creatinine 1.22 0.60-1.30 MG/DL Estimat Glomerular Filtration Rate 75 BUN/Creatinine Ratio 15 Glucose Level 82 70-105 MG/DL Calcium Level 9.7 8.5-10.1 MG/DL Corrected Calcium 9.3 8.5-10.1 MG/DL Magnesium Level 2.0 1.6-2.4 MG/DL Total Bilirubin 0.4 0.1-1.0 MG/DL Aspartate Amino Transf (AST/SGOT) 35 H 5-34 U/L Alanine Aminotransferase (ALT/SGPT) 49 0-55 U/L Alkaline Phosphatase 66 40-136 U/L Myoglobin 63.0 10.0-92.0 NG/ML Troponin I < 0.028 < 0.028 <0.028 NG/ML Total Protein 7.5 6.4-8.2 GM/DL Albumin 4.5 3.2-4.5 GM/DL My Orders Orders - KELLY PEREZ Ekg Tracing (10/08/21 14:27) Aspirin Chewable Tablet (Baby Aspirin Ch (10/08/21 14:49) Cbc With Automated Diff (10/08/21 15:10) Magnesium (10/08/21 15:10) Chest 1 View, Ap/Pa Only (10/08/21 15:10) Ekg Tracing (10/08/21 15:10) Comprehensive Metabolic Panel (10/08/21 15:10) Myoglobin Serum (10/08/21 15:10) Protime With Inr (10/08/21 15:10) Partial Thromboplastin Time (10/08/21 15:10) O2 (10/08/21 15:10) Monitor-Rhythm Ecg Trace Only (10/08/21 15:10) Lipid Panel (10/09/21 06:00) Ed Iv/Invasive Line Start (10/08/21 15:10) Troponin I [place] (10/08/21 15:10) Aspirin Chewable Tablet (Baby Aspirin Ch (10/08/21 15:15) Pantoprazole Injection (Protonix Injecti (10/08/21 15:30) Troponin I [place] (10/08/21 17:23) Fibrin Degradation Products (10/08/21 17:24) Medications Given in ED Current Medications Medications Dose Ordered Sig/Krissy Route Start Time Stop Time Status Last Admin Dose Admin Aspirin 324 mg ONCE ONCE PO 10/08/21 15:15 10/08/21 15:16 DC 10/08/21 14:50 324 MG Pantoprazole 40 mg ONCE ONCE IV 10/08/21 15:30 10/08/21 15:31 DC 10/08/21 15:32 40 MG Vital Signs/I&O 10/08/21 14:27 Temp 36.0 Pulse 71 Resp 18 B/P (MAP) 138/95 (109) Pulse Ox 99 O2 Delivery Room Air Blood Pressure Mean: 109 Progress Progress Note #1: Time: 15:19 Progress Note 2 weeks of burning chest pain. He has a negative troponin then he has 2 points HEART Pathway Score. Low risk; 0.9-1.7% 30-day MACE. Repeat troponin at 3 hours and if negative, discharge home with outpatient follow-up. He is not having any pain at the moment so we will hold off on nitroglycerin. We will give him some pantoprazole and keep him n.p.o. until the first troponin returns. Progress Note #2: Time: 17:29 Progress Note Patient is continuing to be pain-free comfortable and will do a delta troponin 3 hours out nighttime now. First set of labs are unremarkable. If his second troponin is okay then would have him follow-up next week with cardiology. Initial ECG Impression Date: Oct 08, 2021 Initial ECG Impression Time: 14:32 Initial ECG Rate: 68 Initial ECG Rhythm: Normal Sinus Initial ECG Intervals: Normal Initial ECG Impression: Normal Comment Normal sinus rhythm without clinically relevant ST elevation or depression. Mild interventricular conduction delay seen on the right side. [facility] [place] [place] NAME: NEYDA SAUNDERS [facility] REC#: [id number] PT STATUS: REG ER : 1975 PHYSICIAN: KELLY PEREZ MD ADMIT DATE: 10/08/21/ER Signed Date of Exam:10/08/21 CHEST 1 VIEW, AP/PA ONLY EXAMINATION: Chest 1 view HISTORY: Chest pain. COMPARISON: 02/24/2018. FINDINGS: The lung volumes are normal. No focal consolidation is seen. No large pleural effusion or pneumothorax is seen. The cardiomediastinal silhouette is normal in size and contour. No acute osseous abnormality is seen. IMPRESSION: 1. No acute pleuroparenchymal process. Dictated by: Dictated on workstation # [id number] Dict: 10/08/21 1603 Trans: 10/08/21 1609 CVB [id number] Interpreted by: JAHAIRA GALDAMEZ DO Electronically signed by: JAHAIRA GALDAMEZ DO 10/08/21 1609 Diagnostic Imaging Diagonstic Imaging: Xray Plain Films/CT/US/NM/MRI: chest Comments [facility] [place] [place] NAME: NEYDA SAUNDERS [facility] REC#: [id number] PT STATUS: REG ER : 1975 PHYSICIAN: KELLY PEREZ MD ADMIT DATE: 10/08/21/ER Signed Date of Exam:10/08/21 CHEST 1 VIEW, AP/PA ONLY EXAMINATION: Chest 1 view HISTORY: Chest pain. COMPARISON: 02/24/2018. FINDINGS: The lung volumes are normal. No focal consolidation is seen. No large pleural effusion or pneumothorax is seen. The cardiomediastinal silhouette is normal in size and contour. No acute osseous abnormality is seen. IMPRESSION: 1. No acute pleuroparenchymal process. Dictated by: Dictated on workstation # [id number] Dict: 10/08/21 1603 Trans: 10/08/21 1609 CVB [id number] Interpreted by: JAHAIRA GALDAMEZ DO Electronically signed by: JAHAIRA GALDAMEZ DO 10/08/21 1609 Reviewed: Reviewed by Me Transfer of Care Time: 18:00 Care transferred to: Dr. Walker Departure Impression Primary Impression: Chest pain Qualified Codes: R07.9 - Chest pain, unspecified Disposition: HOME, SELF-CARE Condition: Stable Departure-Patient Inst. Referrals: AUREA HAWKINS MD NO,LOCAL PHYSICIAN (PCP) Primary Care Physician Patient Instructions: Chest Pain (DC) Add. Discharge Instructions: While you are not actively having a heart attack now there could be some disease vessels of your heart that are causing pain that you are experiencing. Take it easy over the weekend, stay well-hydrated and out of the heat if possible. Monday morning call Dr. Hawkins's office the cradle slide maker. Request a follow-up appointment early next week. Return to the ER promptly if you are having persistent moderate to severe chest pain, shortness of air or other worrisome symptoms. Aspirin 81 mg daily until you meet with a cradle slide maker. All discharge instructions reviewed with patient and/or family. Voiced understanding. KELLY PEREZ Oct 08, 2021 15:20
[2021-10-08] MEDS ORDERED: PANTOPRAZOLE 40 MG (PROTONIX) VIAL IV ONE (15:30)
--- NOTE | 2021-10-08 16:05 | Diagnostic Imaging Report ---
EXAMINATION: Chest 1 view HISTORY: Chest pain. COMPARISON: 02/24/2018. FINDINGS: The lung volumes are normal. No focal consolidation is seen. No large pleural effusion or pneumothorax is seen. The cardiomediastinal silhouette is normal in size and contour. No acute osseous abnormality is seen. IMPRESSION: 1. No acute pleuroparenchymal process. Dictated by: Dictated on workstation # [id number]
[2021-10-08 16:14] LABS: BASOPHILS # (AUTO) 0.1 10^3/uL (0.0-0.1); BASOPHILS % (AUTO) 2 % (0-10); EOSINOPHILS # (AUTO) 0.3 10^3/uL (0.0-0.3); EOSINOPHILS % (AUTO) 4 % (0-10); HEMATOCRIT 46 % (40-54); HEMOGLOBIN 15.4 g/dL (13.3-17.7); LYMPHOCYTES # (AUTO) 3.3 10^3/uL (1.0-4.0); LYMPHOCYTES % (AUTO) 42 % (12-44); MEAN CORPUSCULAR HEMOGLOBIN 30 pg (25-34); MEAN CORPUSCULAR HGB CONC 34 g/dL (32-36); MEAN CORPUSCULAR VOLUME 89 fL (80-99); MEAN PLATELET VOLUME 12.9 fL (9.0-12.2); MONOCYTES # (AUTO) 0.6 10^3/uL (0.0-1.0); MONOCYTES % (AUTO) 8 % (0-12); NEUTROPHILS # (AUTO) 3.4 10^3/uL (1.8-7.8); NEUTROPHILS % (AUTO) 44 % (42-75); PLATELET COUNT 210 10^3/uL (130-400); WHITE BLOOD COUNT 7.7 10^3/uL (4.3-11.0)
[2021-10-08 16:22] LABS: ALBUMIN 4.5 GM/DL (3.2-4.5)
[2021-10-08 16:23] LABS: CALCIUM 9.7 MG/DL (8.5-10.1)
[2021-10-08 16:24] LABS: PROTHROMBIN TIME PATIENT 13.7 SEC (12.2-14.7); TOTAL PROTEIN 7.5 GM/DL (6.4-8.2)
[2021-10-08 16:26] LABS: BILIRUBIN,TOTAL 0.4 MG/DL (0.1-1.0)
[2021-10-08 16:28] LABS: CREATININE SERUM 1.22 MG/DL (0.60-1.30)
[2021-10-08 18:33] VITALS: BP 142/100
== END 2021-10-08 18:33 | disposition home or self-care (01) ==
LOC: EDUNIT# 14:25 → ER 14:27
DX: R07.89 Other chest pain (principal)
CPT/HCPCS: 36415; 71045; 80053; 83735; 83874; 84484; 85025; 85379; 85610; 85730; 93005; 93041

== ENCOUNTER 2022-01-20 14:30 | Emergency (ER) | payer SELFPAY ==
[~2022-01-20] VITALS: Ht 190.5 cm; Wt 106.6 kg
--- NOTE | 2022-01-20 14:48 | ED GU-Female ---
General Chief Complaint: - Reproductive Stated Complaint: BACK PAIN Source: patient Exam Limitations: no limitations History of Present Illness Date Seen by Provider: Jan 20, 2022 Time Seen by Provider: 14:48 Initial Comments Patient presents to the emergency department for left sided flank pain along with occasional shooting pain down the shaft of the penis. History of kidney stones in the past. Thinks that he is passing another stone. Denies fever, vomiting or difficulty urinating. Has taken over the counter medications with mild improvement of symptoms. Denies blood in his urine that he is aware of. Timing/Duration: yesterday Severity/Quality: moderate Location: left flank, groin, urethral Radiation: left flank Activities at Onset: none Modifying Factors: Improves With Lying down Associated Symptoms: abdominal pain; No diaphoresis, No dysuria, No fever/chills, No nausea/vomiting Allergies and Home Medications Allergies Coded Allergies: No Known Drug Allergies (Unverified , 08/02/17) Patient Home Medication List Home Medication List Reviewed: Yes Hydrocodone Bit/Acetaminophen (HYDROcodone/APAP 5 MG/325 MG TAB) 1 Tab Tab, 1 TAB PO Q6H Prescribed by: Renate Ansari on 01/20/22 160 Methylprednisolone (Medrol) 4 Mg Tab.ds.pk, 4 MG PO UD Prescribed by: ARTHUR HILL on 11/30/17 141 Naproxen (Naproxen) 500 Mg Tablet.dr, 500 MG PO BID Prescribed by: PRISCILLA HESTER on 04/26/212035 Nystatin (Nystatin) Unknown Strength Powder.ea., Unknown Dose MC, (Reported) Entered as Reported by: TATYANA ERICKSON on 11/30/17 1330 Ondansetron (Ondansetron Odt) 4 Mg Tab.rapdis, 4 MG PO Q4H Prescribed by: PRISCILLA HESTER on 04/26/212035 Ondansetron (Ondansetron Odt) 4 Mg Tab.rapdis, 4 MG PO Q6H PRN for NAUSEA/VOMITING Prescribed by: Renate Ansari on 01/20/22 160 Tamsulosin HCl (Flomax) 0.4 Mg Cap, 0.4 MG PO DAILY Prescribed by: Renate Ansari on 01/20/22 160 Tramadol HCl (Tramadol HCl) 50 Mg Tablet, 50 MG PO Q6H PRN for PAIN Prescribed by: KELLY PEREZ on 04/23/181820 Review of Systems Review of Systems Constitutional: No chills, No fever Respiratory: No cough, No short of breath Cardiovascular: No chest pain, No palpitations Gastrointestinal: abdominal pain; No diarrhea, No nausea, No vomiting Genitourinary: denies burning, denies discharge, denies dysuria, denies frequency; flank pain (left sided); denies pain, denies urgency Musculoskeletal: back pain (left flank) Skin: no symptoms reported All Other Systemes Reviewed Negative Unless Noted: Yes Past Nbjpngr-Nkxowl-Grlzmi Hx Immunizations Up To Date Tetanus Booster (TDap): More than 5yrs First/Initial COVID19 Vaccinat: 2020 Seasonal Allergies Seasonal Allergies: No Past Medical History Surgery/Hospitalization HX: DENIES PMH. SUGERIES; GALLBLADDER, APPENDECTOMY, COUPLE OF COLONOSCOPY, AND LT KNEE SURGERY. Surgeries: Yes (KIDNEY STONES; LEFT KNEE SCOPE, GALLBLADDER ?) Appendectomy, Orthopedic Respiratory: No Cardiac: No Neurological: No Reproductive Disorders: No Sexually Transmitted Disease: No HIV/AIDS: No Genitourinary: Yes Kidney Stones Gastrointestinal: Yes (BLOOD IN STOOLS) Gastroesophageal Reflux, Ulcer Musculoskeletal: Yes (TORN MENISCUS-LEFT KNEE SCOPE, sciatic nerve pain) Degenerate Disk Disease, Back Injury Endocrine: No HEENT: No Loss of Vision: Denies Hearing Impairment: Denies Cancer: No Did You Recieve Any Treatments: No Psychosocial: No Integumentary: No Blood Disorders: No Adverse Reaction/Blood Tranf: No Family Medical History Reviewed Nursing Family Hx Family history: Arthritis G8 SISTER (SEVERE BACK PAIN) Family history: Cardiovascular disease 19 FATHER (PACEMAKER; FROM CARDIAC ISSUES) Family history: Diabetes mellitus 19 FATHER 19 MOTHER G8 BROTHER G8 SISTER Heart Disease, Diabetes Physical Exam Vital Signs Vital Signs - First Documented 01/20/22 14:39 Temp 35.9 Pulse 79 Resp 22 B/P (MAP) 145/97 (113) Pulse Ox 98 Capillary Refill : Height, Weight, BMI Height: 6'3.00" Weight: 230lbs. 0oz. 104.498273rq; 29.00 BMI Method:Stated General Appearance: mild distress (pain) Cardiovascular: regular rate, rhythm, no edema Respiratory: chest non-tender, lungs clear, normal breath sounds, no respiratory distress, no accessory muscle use Gastrointestinal: normal bowel sounds, non tender, soft, no organomegaly, no pulsatile mass Back: No CVA tenderness (R); CVA tenderness (L) Extremities: normal range of motion, non-tender, normal inspection Neurologic/Psychiatric: alert, normal mood/affect, oriented x 3 Skin: normal color, warm/dry Progress/Results/Core Measures Suspected Sepsis SIRS Temperature: Pulse: Respiratory Rate: Laboratory Tests 01/20/22 14:59: White Blood Count 6.3 Blood Pressure / Mean: Laboratory Tests 01/20/22 14:59: Creatinine 1.24, Platelet Count 200, Total Bilirubin 0.4 Results/Orders Lab Results Laboratory Tests Test 01/20/22 14:41 01/20/22 14:59 Range/Units Urine Color YELLOW Urine Clarity CLEAR Urine pH 5.5 5-9 Urine Specific [place] >=1.030 1.016-1.022 Urine Protein NEGATIVE NEGATIVE Urine Glucose (UA) NEGATIVE NEGATIVE Urine Ketones NEGATIVE NEGATIVE Urine Nitrite NEGATIVE NEGATIVE Urine Bilirubin NEGATIVE NEGATIVE Urine Urobilinogen 0.2 < = 1.0 MG/DL Urine Leukocyte Esterase NEGATIVE NEGATIVE Urine RBC (Auto) NEGATIVE NEGATIVE Urine RBC NONE /HPF Urine WBC NONE /HPF Urine Squamous Epithelial Cells NONE /HPF Urine Crystals NONE /LPF Urine Bacteria NEGATIVE /HPF Urine Casts NONE /LPF Urine Mucus NEGATIVE /LPF Urine Culture Indicated NO White Blood Count 6.3 4.3-11.0 10^3/uL Red Blood Count 4.90 4.30-5.52 10^6/uL Hemoglobin 14.6 13.3-17.7 g/dL Hematocrit 44 40-54 % Mean Corpuscular Volume 89 80-99 fL Mean Corpuscular Hemoglobin 30 25-34 pg Mean Corpuscular Hemoglobin Concent 34 32-36 g/dL Red Cell Distribution Width 12.8 10.0-14.5 % Platelet Count 200 130-400 10^3/uL Mean Platelet Volume 12.0 9.0-12.2 fL Immature Granulocyte % (Auto) 0 % Neutrophils (%) (Auto) 44 42-75 % Lymphocytes (%) (Auto) 44 12-44 % Monocytes (%) (Auto) 7 0-12 % Eosinophils (%) (Auto) 4 0-10 % Basophils (%) (Auto) 1 0-10 % Neutrophils # (Auto) 2.7 1.8-7.8 X 10^3 Lymphocytes # (Auto) 2.8 1.0-4.0 X 10^3 Monocytes # (Auto) 0.5 0.0-1.0 X 10^3 Eosinophils # (Auto) 0.3 0.0-0.3 10^3/uL Basophils # (Auto) 0.1 0.0-0.1 10^3/uL Immature Granulocyte # (Auto) 0.0 0.0-0.1 10^3/uL Sodium Level 139 135-145 MMOL/L Potassium Level 3.8 3.6-5.0 MMOL/L Chloride Level 107 98-107 MMOL/L Carbon Dioxide Level 25 21-32 MMOL/L Anion Gap 7 5-14 MMOL/L Blood Urea Nitrogen 16 7-18 MG/DL Creatinine 1.24 0.60-1.30 MG/DL Estimat Glomerular Filtration Rate 73 BUN/Creatinine Ratio 13 Glucose Level 102 70-105 MG/DL Calcium Level 9.1 8.5-10.1 MG/DL Corrected Calcium 8.9 8.5-10.1 MG/DL Total Bilirubin 0.4 0.1-1.0 MG/DL Aspartate Amino Transf (AST/SGOT) 35 H 5-34 U/L Alanine Aminotransferase (ALT/SGPT) 53 0-55 U/L Alkaline Phosphatase 62 40-136 U/L Total Protein 6.7 6.4-8.2 GM/DL Albumin 4.2 3.2-4.5 GM/DL My Orders Orders - RENATE ANSARI APRN Ct Abd/Pelvis Wo(Kidney Stone) (01/20/22 14:55) Ed Iv/Invasive Line Start (01/20/22 14:55) Cbc With Automated Diff (01/20/22 14:55) Comprehensive Metabolic Panel (01/20/22 14:55) Ua Culture If Indicated (01/20/22 14:55) Ketorolac Injection (Toradol Injection) (01/20/22 15:00) Ns Iv 1000 Ml (Sodium Chloride 0.9%) (01/20/22 15:00) Medications Given in ED Current Medications Medications Dose Ordered Sig/Krissy Route Start Time Stop Time Status Last Admin Dose Admin Ketorolac Tromethamine 30 mg ONCE ONCE IVP 01/20/22 15:00 10/6/22 15:01 DC 01/20/22 15:04 30 MG Vital Signs/I&O 01/20/22 14:39 Temp 35.9 Pulse 79 Resp 22 B/P (MAP) 145/97 (113) Pulse Ox 98 Capillary Refill : Progress Note : Progress Note Patient with known history of kidney stones. Increasing left sided flank pain today. Will obtain labs and CT scan. 1555: Spoke to patient in regards to labs and CT scan. Pain is controlled at this time. Will send home with Flomax, Hydrocodone and Zofran. Reasons to return to the ER were discussed with patient in addition. Patient was agreeable to plan of care. Diagnostic Imaging Diagonstic Imaging: CT Plain Films/CT/US/NM/MRI: abdomen, pelvis Comments NAME: NEYDA SAUNDERS [facility] REC#: [id number] PT STATUS: REG ER : 1975 PHYSICIAN: RENATE ANSARI APRN ADMIT DATE: 01/20/22/ER Draft Date of Exam:01/20/22 CT ABD/PELVIS WO(KIDNEY STONE) PROCEDURE: CT urinary tract, rule out kidney stone. TECHNIQUE: Multiple contiguous axial images were obtained through the abdomen and pelvis without the use of intravenous contrast. Auto Exposure Controls were utilized during the CT exam to meet ALARA standards for radiation dose reduction. INDICATION: Low back pain and pubic pain of three days duration. History of nephrolithiasis. COMPARISON: CT abdomen and pelvis 04/23/2018. FINDINGS: There is a 2-3 mm stone nonobstructing within the left lower pole calyx having increased in size from the study of 2019. There is however no hydroureteronephrosis. There is no opaque ureteral or bladder stone. No perinephric or periureteric stranding or edema. There are a few diverticula in the sigmoid colon but no features of diverticulitis. The appendix is surgically absent. There is no small or large bowel wall thickening. No perienteric or pericolonic edema. Gallbladder is surgically absent. No abnormal distention of the biliary ducts. Spleen, adrenals and pancreas unremarkable. The aorta is nonaneurysmal. IMPRESSION: Nonobstructing left kidney stone. Postsurgical changes without apparent complication. No acute appearing abnormality identified. Dictated on workstation # [id number] Dict: 01/20/22 1522 Trans: 01/20/22 1535 [facility] [id number] Interpreted by: GAGANDEEP RUGGIERO Electronically signed by: Departure Impression Primary Impression: Kidney stone on left side Disposition: 01 HOME, SELF-CARE Condition: Stable Departure-Patient Inst. Decision time for Depature: 15:58 Referrals: NO,LOCAL PHYSICIAN (PCP/Family) Primary Care Physician Patient Instructions: Kidney Stones in Adults Add. Discharge Instructions: 1. Home and rest. 2. Push fluids. 3. Alternate Tylenol/Ibuprofen as needed for pain. 4. Follow up with PCP as needed. 5. Flomax as directed 6. Zofran as directed as needed 7. Hydrocodone as needed for severe pain. This medication can cause constipation so consider taking a stool softner while on this medication. No driving while taking this medication. 8. Return here if worse or concerns. All discharge instructions reviewed with patient and/or family. Voiced understanding. Scripts Ondansetron (Ondansetron Odt) 4 Mg Tab.rapdis 4 MG PO Q6H PRN for NAUSEA/VOMITING, #8 TAB 0 Refills Prov: RENATE ANSARI APRN 01/20/22 Tamsulosin HCl (Flomax) 0.4 Mg Cap 0.4 MG PO DAILY, #14 CAP Prov: RENATE ANSARI APRN 01/20/22 Hydrocodone Bit/Acetaminophen (HYDROcodone/APAP 5 MG/325 MG TAB) 1 Tab Tab 1 TAB PO Q6H for Pain, #8 TAB 0 Refills Prov: RENATE ANSARI APRN 01/20/22 RENATE ANSARI APRN Jan 20, 2022 14:48
[2022-01-20] MEDS ORDERED: KETOROLAC 30 MG/ML VIAL IVP ONE (15:00)
[2022-01-20] MEDS ORDERED: NS IV 1000 ML 1,000 ML IV SCH (15:00)
[2022-01-20 15:09] LABS: BASOPHILS # (AUTO) 0.1 10^3/uL (0.0-0.1); BASOPHILS % (AUTO) 1 % (0-10); EOSINOPHILS # (AUTO) 0.3 10^3/uL (0.0-0.3); EOSINOPHILS % (AUTO) 4 % (0-10); HEMATOCRIT 44 % (40-54); HEMOGLOBIN 14.6 g/dL (13.3-17.7); LYMPHOCYTES # (AUTO) 2.8 X 10^3 (1.0-4.0); LYMPHOCYTES % (AUTO) 44 % (12-44); MEAN CORPUSCULAR HEMOGLOBIN 30 pg (25-34); MEAN CORPUSCULAR HGB CONC 34 g/dL (32-36); MEAN CORPUSCULAR VOLUME 89 fL (80-99); MONOCYTES # (AUTO) 0.5 X 10^3 (0.0-1.0); MONOCYTES % (AUTO) 7 % (0-12); NEUTROPHILS # (AUTO) 2.7 X 10^3 (1.8-7.8); NEUTROPHILS % (AUTO) 44 % (42-75); PLATELET COUNT 200 10^3/uL (130-400); WHITE BLOOD COUNT 6.3 10^3/uL (4.3-11.0)
[2022-01-20 15:14] LABS: BILIRUBIN,URINE NEGATIVE (NEGATIVE); CLARITY,URINE CLEAR; COLOR,URINE YELLOW; GLUCOSE, URINE (UA) NEGATIVE (NEGATIVE); KETONES,URINE NEGATIVE (NEGATIVE); LEUKOCYTE ESTERASE ,URINE NEGATIVE (NEGATIVE); NITRITE,URINE NEGATIVE (NEGATIVE); PH,URINE 5.5 (5-9); PROTEIN,URINE NEGATIVE (NEGATIVE)
[2022-01-20 15:25] LABS: ALBUMIN 4.2 GM/DL (3.2-4.5); POTASSIUM 3.8 MMOL/L (3.6-5.0)
[2022-01-20 15:27] LABS: CALCIUM 9.1 MG/DL (8.5-10.1)
[2022-01-20 15:28] LABS: TOTAL PROTEIN 6.7 GM/DL (6.4-8.2)
[2022-01-20 15:29] LABS: BACTERIA,URINE NEGATIVE /HPF
[2022-01-20 15:29] LABS: BILIRUBIN,TOTAL 0.4 MG/DL (0.1-1.0)
[2022-01-20 15:31] LABS: CREATININE SERUM 1.24 MG/DL (0.60-1.30)
--- NOTE | 2022-01-20 15:36 | Diagnostic Imaging Report ---
PROCEDURE: CT urinary tract, rule out kidney stone. TECHNIQUE: Multiple contiguous axial images were obtained through the abdomen and pelvis without the use of intravenous contrast. Auto Exposure Controls were utilized during the CT exam to meet ALARA standards for radiation dose reduction. INDICATION: Low back pain and pubic pain of three days duration. History of nephrolithiasis. COMPARISON: CT abdomen and pelvis 04/23/2018. FINDINGS: There is a 2-3 mm stone nonobstructing within the left lower pole calyx having increased in size from the study of 2018. There is however no hydroureteronephrosis. There is no opaque ureteral or bladder stone. No perinephric or periureteric stranding or edema. There are a few diverticula in the sigmoid colon but no features of diverticulitis. The appendix is surgically absent. There is no small or large bowel wall thickening. No perienteric or pericolonic edema. Gallbladder is surgically absent. No abnormal distention of the biliary ducts. Spleen, adrenals and pancreas unremarkable. The aorta is nonaneurysmal. IMPRESSION: Nonobstructing left kidney stone. Postsurgical changes without apparent complication. No acute appearing abnormality identified. Dictated by: Dictated on workstation # [id number]
[2022-01-20] MEDS ORDERED: ONDA4TAB11 PO (16:01)
[2022-01-20] MEDS ORDERED: ACHD5005 PO (16:01)
[2022-01-20] MEDS ORDERED: TMSL.4C PO (16:01)
[2022-01-20 16:10] VITALS: BP 129/85
== END 2022-01-20 16:10 | disposition home or self-care (01) ==
LOC: EDUNIT# 14:30 → ER 14:31
DX: N20.0 Calculus of kidney (principal); Z28.310 Unvaccinated for COVID-19
CPT/HCPCS: 36415; 74176; 80053; 81000; 85025; 96361; 96374

== ENCOUNTER → 2023-01-20 | Outpatient (CLI) | payer OTHER ==
--- NOTE | 2023-01-20 17:19 | Diagnostic Imaging Report ---
History: Bilateral foot pain TECHNIQUE: 3 views of the bilateral feet COMPARISON: None FINDINGS: Right foot: There is moderate to marked hallux valgus. There is mild degenerative change in the 1st MTP joint. No erosion is seen. No acute fracture is seen. 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 Left foot: No acute fracture or dislocation is seen in the left foot. 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 There is mild hallux valgus. No erosions are seen. Joint spaces are preserved. IMPRESSION: 1. Bilateral hallux valgus, right greater than left. Dictated by: Dictated on workstation # [id number]
== END ==
LOC: RAD 15:01
PROVIDERS: ATTEND Family Medicine
DX: M20.12 Hallux valgus (acquired), left foot (principal); M20.11 Hallux valgus (acquired), right foot

== ENCOUNTER → 2023-03-15 | Outpatient (CLI) | payer OTHER ==
[2023-03-15 10:52] VITALS: BP 125/79
--- NOTE | 2023-03-15 10:52 | Cardiology Stress Test Report ---
Stress Test Report Date of Procedure/Referring: Date of Procedure: Mar 15, 2023 PCP Sudarshan Ann MD Admitting Physician Admitting Physician: Attending Physician: Christi Hawkins MD Baseline Heart Rate: 72 Baseline Blood Pressure: Blood Pressure Systolic: 125 Blood Pressure Diastolic: 79 Baseline EKG: Baseline EKG: NSR Summary/Conclusion: Summary: In summary, the patient started exercising with a baseline heart rate, blood pressure and EKG mentioned above Patient was able to exercise for a total of 7.30 minutes on Stephen protocol, METs 9.1 Maximum heart rate 153 Maximum blood pressure 174/75 Stress EKG, Minimal nondiagnostic changes Recovery EKG , Return to baseline Conclusion: Fair exercise tolerance a total of 7 minutes and 30 seconds on standard Stephen protocol, 9.1 METS achieving 88% of maximum expected heart rate Appropriate heart rate and blood pressure response to exercise return to baseline during recovery Baseline right bundle branch block with chest pain during exercise and no ndiagnostic EKG changes. No arrhythmia was detected Recommend evaluating exercise Myoview stress test Copy Copies To 1: SUDARSHAN ANN MD, BASHAR J MD Mar 15, 2023 10:52
== END ==
LOC: CARD 09:06
PROVIDERS: ATTEND Internal Medicine Cardiovascular Disease
DX: I45.10 Unspecified right bundle-branch block (principal)
CPT/HCPCS: 93017